=== PATIENT | female | born 1950 | race Caucasian/White ===

== ENCOUNTER 2020-05-22 11:15 | Outpatient (CLI) | payer MEDICARE, SELFPAY | END 2020-05-22 11:16 | disposition home or self-care (01) | LOC: SLEEP 05-23 13:43 | PROVIDERS: Visit Provider Internal Medicine Pulmonary Disease | DX: G47.34 Idiopathic sleep related nonobstructive alveolar hypoventilation (principal) | CPT/HCPCS: 94762 ==

== ENCOUNTER 2021-03-16 08:21 | Emergency (ER) | payer MEDICARE, SELFPAY ==
[2021-03-16 08:36] VITALS: BP 128/51; PULSE 83; RESP 18; O2SAT 98; BMI 28.1
--- NOTE | 2021-03-16 08:50 | ED_ITS ---
HPI - Fall General: Chief Complaint: Fall Stated Complaint: FELL: LLE/ULE PAIN, TINGLING IN LLE Time Seen by Provider: 03/16/21 08:46 Source: patient Mode of arrival: ambulatory Limitations: no limitations History of Present Illness: HPI Narrative: 70-year-old female with a history of arthritis presents to the ER today for left knee and left arm pain x24 hours.. Patient was walking in her yard at home yesterday when she tripped over something in the yard and fell, landing on her left knee and left side. Patient reports since then she has noticed swelling and pain in the left knee, worse with ambulation and weightbearing. She feels like the knee does not look straight. Patient also reports pain in the left upper arm. She has a history of an old fracture with pin and is concerned that might have messed it up. She does have full range of motion of the upper arm but is very tender to palpation of the upper humerus. Patient denies any swelling in the upper arm. Patient has taken home medications for pain. She applied ice but has not done anything else at this point for symptoms. Patient denies headache, fever, chills, chest pain, shortness of breath, nausea, vomiting, diarrhea, constipation, change in bowel or bladder habits. MD complaint: fall Onset (ago): day(s) (1) Fall from: other (In yard while walking) Place fall occurred: home Loss of consciousness: None Prolonged down time: no Symptoms prior to fall: none Context: tripped/slipped Location of injury - extremities: Left: arm and lower leg Severity: moderate Severity scale (1-10): 4 Quality: aching and tingling Associated symptoms-after fall: Denies abdominal pain, chest pain, headache(s) or neck pain Review of Systems Const: Denies: fever(s), chills or fatigue ENMT: Denies: throat pain, nasal discharge or nasal congestion Card: Denies: chest pain or palpitations Resp: Denies: dyspnea or wheezing GI: Denies: abdominal pain, nausea, vomiting, diarrhea or constipation Musc: Reports: extremity pain (Left knee and left upper arm) and joint swelling (Left knee); Denies: neck pain, back pain or extremity swelling Skin/Breast: Reports: other (Abrasions to left lower leg) Neuro: Denies: headache(s), numbness in extremities or dizziness PFS ED PFSH: Medical History Depression Nocturnal hypoxia Family History Sister Cancer breast, leukemia Father CAD (coronary artery disease) Diabetes Mother Diabetes CHF (congestive heart failure) Social History Smoking and tobacco status: never smoked Second hand smoke exposure: Yes Smoking risk assessment/counseling performed?: No Alcohol intake: never Desire information about alcohol rehabilitation?: No Counseling given: No Caregiver/support person: No Lives independently: Yes Household members: none Marital status: Single service: No Current occupational status: retired and disabled History of recent travel: No Current gender identity: Female Physical Exam Const: COMMON NORMALS: no acute distress, average body habitus, patient oriented x3 and alert EXAM LIMITATIONS: no altered mental status GENERAL APPEARANCE: cooperative and comfortable Neck/C-Spine: COMMON NORMALS: full ROM Resp: COMMON NORMALS: normal respiratory effort, No retractions and clear to auscultation bilaterally AUSCULTATION: clear to auscultation bilaterally, no rales, no rhonchi and no wheezes Cardio: COMMON NORMALS: regular rate, regular rhythm and No murmurs present (Cardio) RATE: regular rate RHYTHM: regular rhythm GI: COMMON NORMALS: Normal to inspection, nondistended, normoactive bowel sounds present, Soft to palpation and non-tender PALPATION: Yes Soft to palpation Extremity: COMMON NORMALS: capillary refill normal, no clubbing, cyanosis or edema and no pedal edema RIGHT UPPER EXTREMITY: Yes upper arm (Tender over the proximal humerus but no deformity, normal ROM) LEFT LOWER EXTREMITY: Yes knee joint (Appears to be some mild swelling, and tenderness to palpation over patella) Left knee: Yes palpation (Tender), Yes ROM (Mildly decreased secondary to pain and swelling) and Yes other (Ligaments appear stable on exam) Neuro: COMMON NORMALS: patient oriented x3 SENSORIUM/ORIENTATION: Yes alert Psych: COMMON NORMALS: mental status grossly normal, Normal thought process present and cooperative THOUGHT PROCESS: Normal thought process present Skin: NARRATIVE SKIN EXAM: Abrasions noted to left knee, all appear to be healing nicely. TRAUMA: abrasion Course ED course: -year-old female presents to the ER today for pain in her left knee primarily after a fall yesterday in her yard. She does have some left upper arm pain and is concerned that due to a prior fracture she has a pin and may have messed that up also. Will get x-ray of knee and humerus. Vital Signs: Vital signs: Vital Signs Pulse Rate 83 03/16/21 08:36 Respiratory Rate 18 03/16/21 08:36 Blood Pressure 128/51 03/16/21 08:36 Pulse Oximetry 98 03/16/21 08:36 MDM - Fall MDM Narrative: Medical decision making narrative: X-ray negative for acute fracture or dislocation. Patient has some arthritis noted on x-ray, likely causing the swelling and pain. Discussed conservative treatment at this time including rest, ice, elevation, and anti-inflammatories. Patient has a cane to assist with walking which will help take some of the pressure off of the knee. If pain persists beyond 10 to 14 days, patient should follow-up with her PCP. Return to the ER with any new or worsening symptoms. Imaging Data^: Other Xray: Radiologist's impression: [address] [address] XRay Report Signed Patient: Augustina Ugarte Unit #: [id number] : 1950 Age/Sex: 70 / F ADM Date: 03/16/21 Loc: ER Room/Bed: Attending Dr: Ordering Provider/Ordering MD: June Pugh Date of Service: 03/16/21 Procedure(s): [place] [address] Accession Number(s): [id number] Report Number: [id number] PROCEDURE INFORMATION: Exam: XR Left Humerus Exam date and time: 03/16/2021 8:50 AM Age: 70 years old Clinical indication: Injury or trauma; Fall; Blunt trauma (contusions or hematomas); Arm, upper; Left; Prior surgery; Additional info: Fall with arm pain TECHNIQUE: Imaging protocol: XR Left humerus. Views: 2 or more views. Total images: 2 COMPARISON: No relevant prior studies available. FINDINGS: Bones/joints: Status post open reduction internal fixation of left proximal humeral fracture. No evidence of hardware failure. Residual deformity of the proximal left humerus noted with exuberant inferior osteophyte extending from the humeral head. No acute fracture nor subluxation. No osseous erosion nor periosteal reaction. Soft tissues: Normal. XR/[place] [address] IMPRESSION: 1. Status post open reduction internal fixation of left proximal humeral fracture. No evidence of hardware failure. 2. Residual deformity of the proximal left humerus noted with exuberant inferior osteophyte extending from the humeral head. 3. No acute osseous pathology. Dictated By: Brice Espinosa MD Signed By: Brice Espinosa MD Signed Date/Time: 03/16/21945 DD/ 4 Xray Ortho: Radiologist's impression: [address] [address] XRay Report Signed Patient: Augustina Ugarte Unit #: [id number] : 1950 Age/Sex: 70 / F ADM Date: 03/16/21 Loc: ER Room/Bed: Attending Dr: Ordering Provider/Ordering MD: June Pugh Date of Service: 03/16/21 Procedure(s): XR knee LT 3V* [id number] Accession Number(s): [id number] Report Number: [id number] PROCEDURE INFORMATION: Exam: XR Left Knee Exam date and time: 03/16/2021 8:50 AM Age: 70 years old Clinical indication: Injury or trauma; Fall; Blunt trauma; Knee; Left; Additional info: Fall with knee pain TECHNIQUE: Imaging protocol: XR Left knee. Views: 3 views. Total images: 3 COMPARISON: No relevant prior studies available. FINDINGS: Bones/joints: Moderate marginal osteophytes are noted. No acute fracture nor subluxation. No osseous erosion nor periosteal reaction. Soft tissues: Normal. XR/XR knee LT 3V* [id number] IMPRESSION: No acute osseous pathology. Dictated By: Brice Espinosa MD Signed By: Brice Espinosa MD Signed Date/Time: 03/16/21943 DD/ 2 Critical Care Time Critical Care Time: Critical Care Time: No Discharge Plan Discharge Patient Disposition: Home Clinical Impression: Contusion of arm, left Qualifiers: Encounter type: initial encounter Qualified Code(s): S40.022A - Contusion of left upper arm, initial encounter Contusion of knee, left Qualifiers: Encounter type: initial encounter Qualified Code(s): S80.02XA - Contusion of left knee, initial encounter Condition: Stable Prescriptions: No Action cholecalciferol (vitamin D3) 50 mcg (2,000 unit) capsule 50 mcg PO DAILY RF: 0 hydroxyzine HCl 25 mg tablet 25 mg PO QID PRNRF: 0 metformin 500 mg tablet 500 mg PO BID RF: 0 mirabegron 25 mg tablet extended release 24 hr 25 mg PO DAILY RF: 0 pantoprazole 40 mg tablet,delayed release (DR/EC) 40 mg PO DAILY RF: 0 mecobalamin (vitamin B12) 1,000 mcg tablet,chewable 2,000 mcg PO DAILY RF: 0 Discharge Orders: Discharge ED (Routine); Ordered 03/16/21 Ordered By: June Pugh Referrals: Damian Navarro MD [Primary Care Provider] - Discharge Diet: Usual diet Discharge Activity: Limit activity as instructed Patient Instructions: Opioid Safety Activity Restrictions/Additional Instructions: Take [id number] anti-inflammatory as discussed. Rest, ice, elevation recommended ice 20 minutes on and 20 minutes off. Use cane to relieve some of the weight on the knee while walking. Follow-up with PCP in 10 to 14 days if no improvement. Return to the ER with any new or worsening symptoms. 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
== END 2021-03-16 09:56 | disposition home or self-care (01) ==
PROVIDERS: Emergency Provider Physician Assistant; PCP Family Medicine
DX: S40.022A Contusion of left upper arm, initial encounter (principal); S80.02XA Contusion of left knee, initial encounter; Z79.84 Long term (current) use of oral hypoglycemic drugs; Z77.22 Contact with and (suspected) exposure to environmental tobacco smoke (acute) (chronic); W01.0XXA Fall on same level from slipping, tripping and stumbling without subsequent striking against object, initial encounter
CPT/HCPCS: 73060; 73562; 99282

== ENCOUNTER 2021-07-30 20:00 | Outpatient (CLI) | payer MEDICARE, SELFPAY | END 2021-07-30 20:01 | disposition home or self-care (01) | LOC: SLEEP 07-31 06:34 | PROVIDERS: PCP Family Medicine; Visit Provider Internal Medicine Pulmonary Disease | DX: G47.33 Obstructive sleep apnea (adult) (pediatric) (principal) | CPT/HCPCS: 95810 ==

== ENCOUNTER → 2021-08-28 11:00 | Outpatient (BNVA) | payer MEDICARE, MEDICAID, SELFPAY | PROVIDERS: PCP Family Medicine; Visit Provider Internal Medicine Pulmonary Disease | DX: G47.10 Hypersomnia, unspecified (principal); G47.34 Idiopathic sleep related nonobstructive alveolar hypoventilation | CPT/HCPCS: 99213 ==

== ENCOUNTER → 2021-11-12 15:33 | Outpatient (BNVA) | payer MEDICARE, MEDICAID, SELFPAY | PROVIDERS: PCP Family Medicine; Visit Provider Internal Medicine Pulmonary Disease | DX: G47.10 Hypersomnia, unspecified (principal); G47.34 Idiopathic sleep related nonobstructive alveolar hypoventilation | CPT/HCPCS: 99214 ==

== ENCOUNTER 2022-01-05 08:24 | Day surgery (SDC) | payer MEDICARE, MEDICAID, SELFPAY ==
[2022-01-01 12:17] VITALS: BMI 28.6
[2022-01-05 09:00] VITALS: PULSE 72; RESP 18; TEMP 36.2; O2SAT 96
[2022-01-05] MEDS: sodium chloride 0.9% 1,000 ML 30 ML IV (09:13)
--- NOTE | 2022-01-05 09:44 | W.PM.OPSFHP ---
Same Day Surgery H&P Indication for Procedure/HPI DATE OF PROCEDURE: January 05, 2022 CHIEF COMPLAINT/INDICATIONFOR SURGICAL PROCEDURE: History of colon polyp PREOP DIAGNOSIS: History of polyps PLANNED PROCEDURE: Operation Date: 01/05/22 09:45 Proposed Procedures p Colonoscopy 77543,Z86.010(Not Applicable) - Blayne Shaikh MD Medications/Allergies* Home Medications Medication Instructions Recorded Confirmed Type cholecalciferol (vitamin D3) 50 50 mcg PO DAILY 05/08/20 01/01/22 History mcg (2,000 unit) capsule mecobalamin (vitamin B12) 1,000 2,000 mcg PO DAILY tab 05/08/20 01/01/22 History mcg chewable tablet galcanezumab-gnlm 120 mg/mL 120 mg SUBCUT .monthly ml 11/12/21 01/01/22 History subcutaneous pen injector (Emgality Pen) Allergies/Adverse Reactions Allergy/AdvReac Type Severity Reaction Status Date / Time acetaminophen Allergy Unknown Verified 01/05/22 09:07 [From Darvocet-N] guaifenesin [From Mucinex D] Allergy hives Verified 01/05/22 09:07 meperidine [From Demerol] Allergy Unknown Verified 01/05/22 09:07 morphine Allergy code blue Verified 01/05/22 09:07 oxycodone [From Percocet] Allergy Unknown Verified 01/05/22 09:07 propoxyphene Allergy Unknown Verified 01/05/22 09:07 [From Darvocet-N] pseudoephedrine Allergy hives Verified 01/05/22 09:07 [From Mucinex D] Current Medications: Generic Name Dose Route Start Last Admin Trade Name Freq PRN Reason Stop Dose Admin Sodium Chloride 1,000 mls @ 30 mls/hr 01/05/22 08:30 01/05/22 09:13 Sodium Chloride 0.9% IV 01/06/22 08:29 30 mls/hr .Q24H NASREEN Administration Pertinent History/Comorbid Conditions* Medical History (Updated 12/16/21 @ 09:48 by Blayne Shaikh MD) Depression Nocturnal hypoxia Family History (Updated 05/08/20 @ 15:33 by Mike Mclain LPN) Diabetes Father Mother CAD (coronary artery disease) Father CHF (congestive heart failure) Mother Cancer Sister breast, leukemia Social History Smoking and tobacco status: never smoked Second hand smoke exposure: Yes Smoking risk assessment/counseling performed?: No Alcohol intake: never Desire information about alcohol rehabilitation?: No Counseling given: No Caregiver/support person: No Lives independently: Yes Household members: none Marital status: Single service: No Current occupational status: retired and disabled History of recent travel: No Current gender identity: Female Pertinent Exam Findings alert, oriented x 3, clear to auscultation bilaterally, regular rate & rhythm, operative site marked and procedure specific exam findings Recommendations Surgery/Procedure today Coding Level of Care Code Acute Oncology Social Worker for Maame Macario
--- NOTE | 2022-01-05 09:57 | ANES.PREANE2 ---
Pre-Anesthetic Assessment Height/Weight: Height 1.7 m Weight 83.007 kg Temp Pulse Resp Pulse Ox 97.2 F L 72 18 96 01/05/22 09:00 01/05/22 09:00 01/05/22 09:00 01/05/22 09:00 Preop Diagnosis: History of polyps Operation Date: 01/05/22 09:45 Proposed Procedures p Colonoscopy 64962,Z86.010(Not Applicable) - Blayne Shaikh MD Familial anesthetic complications: None Was Beta Pamela taken within 24 hours: N/A Was Clonidine taken within 24 hours: N/A Last intake: Intake Last Liquid Date 01/04/22 Last Liquid Time 21:00 Last Solid Date 12/29/21 Social No alcohol and No tobacco Exam alert, oriented x 3, clear to auscultation bilaterally and regular rate & rhythm Airway Mallampati: Class I Dentition: other (permanent bridge) Pulmonary Sleep Apnea (no longer has per patient) GI gastroparesis Neuropsych Anxiety Anesthetic Plan ASA status: 2 Anesthesia: MAC Risk of > 500 ml blood loss (7ml/kg in children): No Medications/Allergies Home Medications Medication Instructions Recorded Confirmed Last Taken Type cholecalciferol (vitamin D3) 50 50 mcg PO DAILY 05/08/20 01/01/22 12/29/21 History mcg (2,000 unit) capsule mecobalamin (vitamin B12) 1,000 2,000 mcg PO DAILY tab 05/08/20 01/01/22 12/29/21 History mcg chewable tablet galcanezumab-gnlm 120 mg/mL 120 mg SUBCUT .monthly ml 11/12/21 01/01/22 12/29/21 History subcutaneous pen injector (Emgality Pen) peg 3350-electrolytes 236 240 ml PO Q10M #8000 ml 12/16/21 01/01/22 12/29/21 Rx gram-22.74 gram-6.74 gram-5.86 gram solution (Golytely) Allergies Allergy/AdvReac Type Severity Reaction Status Date / Time acetaminophen Allergy Unknown Verified 01/05/22 09:07 [From Darvocet-N] guaifenesin [From Mucinex D] Allergy hives Verified 01/05/22 09:07 meperidine [From Demerol] Allergy Unknown Verified 01/05/22 09:07 morphine Allergy code blue Verified 01/05/22 09:07 oxycodone [From Percocet] Allergy Unknown Verified 01/05/22 09:07 propoxyphene Allergy Unknown Verified 01/05/22 09:07 [From Darvocet-N] pseudoephedrine Allergy hives Verified 01/05/22 09:07 [From Mucinex D] Current Medications Generic Name Dose Route Start Last Admin Trade Name Freq PRN Reason Stop Dose Admin Sodium Chloride 1,000 mls @ 30 mls/hr 01/05/22 08:30 01/05/22 09:13 Sodium Chloride 0.9% IV 01/06/22 08:29 30 mls/hr .Q24H NASREEN Administration PFSH Anesthesia Medical History Depression Nocturnal hypoxia Family History Sister Cancer breast, leukemia Father CAD (coronary artery disease) Diabetes Mother Diabetes CHF (congestive heart failure) Social History Smoking and tobacco status: never smoked Second hand smoke exposure: Yes Smoking risk assessment/counseling performed?: No Alcohol intake: never Desire information about alcohol rehabilitation?: No Counseling given: No Caregiver/support person: No Lives independently: Yes Household members: none Marital status: Single service: No Current occupational status: retired and disabled History of recent travel: No Current gender identity: Female Data Anesthesia Cardiac Studies: No Data to Display
[2022-01-05 10:41] VITALS: BP 110/69; PULSE 64; RESP 16; TEMP 36.2; O2SAT 96
--- NOTE | 2022-01-05 10:43 | ANE.PACU2 ---
Inpatient post-anesthesia follow up: Airway intact: Yes Vital signs: Temperature 97.2 F Pulse Rate 64 Respiratory Rate 16 Blood Pressure 110/69 Pulse Oximetry 96 Oxygen Delivery Me thod Room Air Oxygen Flow Rate Fraction of Inspir ed Oxygen Hydration adequate: Yes Nausea and vomiting: No Pain level: 1 Mental status: Baseline
[2022-01-05 10:50] VITALS: BP 127/75; PULSE 62; RESP 18; O2SAT 98
== END 2022-01-05 11:07 | disposition home or self-care (01) ==
PROVIDERS: PCP Family Medicine; Visit Provider Internal Medicine
PROC: 0DJD8ZZ Inspection of Lower Intestinal Tract, Via Natural or Artificial Opening Endoscopic (ICD-10-PCS; CPT 45378; principal; 2022-01-05 09:45)
DX: Z86.010 Personal history of colon polyps (principal); G47.30 Sleep apnea, unspecified
CPT/HCPCS: 45378; J2704; J7030

== ENCOUNTER 2022-01-08 12:07 | Inpatient (IN) | payer MEDICARE, MEDICAID, SELFPAY ==
[2022-01-08] VITALS (27 sets, daily range): BP systolic 104–143; BP diastolic 48–118; PULSE 69–177; RESP 11–27; TEMP 36.6–36.8; O2SAT 90–98; BMI 28.1; BMI 29.0
--- NOTE | 2022-01-08 12:27 | ECG_ITS ---
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 Measurements Intervals Mcdonald Rate: 142 P: AK: QRS: 10 QRSD: 74 T: 64 QT: 268 QTc: 412 Interpretive Statements ATRIAL FLUTTER/fibrillation WITH RAPID VENTRICULAR RESPONSE LOW QRS VOLTAGE IN PRECORDIAL LEADS [QRS DEFLECTION < 1.0 mV IN CHEST LEADS] POSSIBLE RIGHT VENTRICULAR CONDUCTION DELAY [RSR (QR) IN V1/V2] NONSPECIFIC ST & T-WAVE ABNORMALITY ABNORMAL RHYTHM ECG No previous ECG available for comparison Electronically Signed On 01-08-2022 21:16:19 CDT by Demar Szymanski M.D. [email or web address]
--- NOTE | 2022-01-08 12:56 | PC.NURSE ---
Patient has converted to SR ERP notified. EKG repeated. Patient denies chest pain or discomfort at this time.
[2022-01-08 13:05] LABS: Basophils # 0.1 10^3/uL (0.0-0.1); Basophils % 0.6 %; Eosinophils # 0.1 10^3/uL (0.0-0.8); Eosinophils % 1.3 %; Hematocrit 40.3 % (37.0-47.0); Hemoglobin 13.1 g/dL (11.5-15.3); Lymphocytes # 2.1 10^3/uL (0.8-4.8); Lymphocytes % 20.6 %; Mean Corpuscular HGB Conc 32.5 g/dL (30.0-36.0); Mean Corpuscular Hemoglobin 30.5 pg (28.0-34.0); Mean Corpuscular Volume 93.9 fl (81-99); Mean Platelet Volume 10.4 fL (7.4-10.4); Monocytes # 0.9 10^3/uL (0.2-0.9); Monocytes % 8.2 %; Neutrophils # 7.16 10^3/uL (1.8-7.7); Nucleated Red Blood Cells % 0 %; Platelet Count 206 10^3/cmm (130-400); Red Blood Count 4.29 10^6/uL (4.1-5.3); Red Cell Distribution Width 12.7 % (12.1-15.1); White Blood Count 10.4 10^3/uL (4.0-10.0)
--- NOTE | 2022-01-08 13:15 | W.ED.GENADLT ---
HPI - General Adult General: Chief complaint: Arrhythmia/Palpitations Stated complaint: DIZZY/ AFIB Time Seen by Provider: 01/08/22 12:27 History of Present Illness: Patient is a 71-year-old female with history of depression migraine presenting to emergency room with concerns of intermittent lightheadedness since 9:00 this morning. Patient tells me that around night she began experiencing lightheadedness and since then has had near syncope. Patient denies any chest pain, diaphoresis, nausea/vomiting, shortness of breath. Patient's called EMS and patient was brought to the emergency room. In route, patient was noted to be in atrial flutter with heart rate in the 140s. Patient received 20 mg IM Cardizem. By time the patient arrived to the emergency room, she would prefer to practice normal sinus rhythm. Patient denies any fever/chills but reports ongoing cough. Onset:9am Duration:ongoing Location:home Severity:moderate Associated symptoms: Deny chest pain, dyspnea, nausea, rash, palpitations or vomiting Review of Systems Const: Denies: fever(s) or chills Eyes: Denies: change in vision ENMT: Denies: mouth pain Card: Denies: chest pain or palpitations Resp: Denies: dyspnea or non-productive cough GI: Denies: abdominal pain, nausea, vomiting or diarrhea : Denies: dysuria Musc: Denies: extremity pain Skin/Breast: Denies: rash or new lesions Neuro: Reports: other (+light-headedness); Denies: weakness in extremities Psych: Reports: other (Normal mood) Octaviano/Lymph: Denies: easy bruising PFSH ED PFSH: Medical History Depression Nocturnal hypoxia Family History Sister Cancer breast, leukemia Father CAD (coronary artery disease) Diabetes Mother Diabetes CHF (congestive heart failure) Social History Smoking and tobacco status: never smoked Second hand smoke exposure: Yes Smoking risk assessment/counseling performed?: No Alcohol intake: never Desire information about alcohol rehabilitation?: No Counseling given: No Caregiver/support person: No Lives independently: Yes Household members: none Marital status: Single service: No Current occupational status: retired and disabled History of recent travel: No Current gender identity: Female Physical Exam Const: COMMON NORMALS: alert HENMT: COMMON NORMALS: atraumatic HEAD & SCALP: atraumatic MOUTH: moist mucous membranes not abnormal Eye: COMMON NORMALS: EOMs intact bilaterally and conjunctivae normal CONJUNCTIVA: Yes conjunctivae normal Neck/C-Spine: COMMON NORMALS: full ROM and supple Resp: COMMON NORMALS: normal respiratory effort and clear to auscultation bilaterally AUSCULTATION: clear to auscultation bilaterally Cardio: COMMON NORMALS: regular rate RATE: regular rate GI: COMMON NORMALS: Soft to palpation and non-tender PALPATION: Yes Soft to palpation Extremity: COMMON NORMALS: full ROM Neuro: SENSORIUM/ORIENTATION: Yes alert MOTOR EXAM: No Abnormal motor strength present and Other motor observations present (no focal motor deficits) Psych: COMMON NORMALS: speech normal SPEECH: Yes normal speech MOOD & AFFECT: Yes euthymic mood Course Vital Signs: Vital signs: Vital Signs Temperature 98.0 F 01/10/22 16:02 Pulse Rate 53 L 01/10/22 16:02 Respiratory Rate 14 01/10/22 16:02 Blood Pressure 105/61 01/10/22 14:15 Pulse Oximetry 92 01/10/22 16:02 [facility] - General Adult Medical Decision Making Patient is a 71-year-old female history of depression and migraine presenting to emergency room with concerns of atrial flutter and recurrent lightheadedness. On arrival, initially, patient on the monitor was noted to have heart rate in the 120s. However on repeat assessment, patient is noted to be normal sinus rhythm with heart rate in the 60s to 80s. Patient has no further sensation of lightheadedness. Lab work-up largely within normal limit. D-dimer appears to be elevated. CTA negative for dissection or PE. Patient does not exhibit any signs of alcohol withdrawal. Patient will be admitted to hospital for new atrial flutter work-up. Dispoistion: admission for atrial flutter new onset workup. Lab Data : 01/09/22 06:10 01/10/22 03:57 Radiology Impressions Chest CTA 01/08/22 15:13 IMPRESSION: No evidence of pulmonary embolism. Laboratory Results WBC 7.8 10^3/uL (4.0-10.0) 01/09/22 06:10 RBC 4.14 10^6/uL (4.1-5.3) 01/09/22 06:10 Hgb 12.5 g/dL (11.5-15.3) 01/09/22 06:10 Hct 39.8 % (37.0-47.0) 01/09/22 06:10 MCV 96.1 fl (81-99) 01/09/22 06:10 MCH 30.2 pg (28.0-34.0) 01/09/22 06:10 MCHC 31.4 g/dL (30.0-36.0) 01/09/22 06:10 RDW 13.0 % (12.1-15.1) 01/09/22 06:10 Plt Count 194 10^3/cmm (130-400) 01/09/22 06:10 MPV 10.6 fL (7.4-10.4) H 01/09/22 06:10 Neut % (Auto) 59.4 % 01/09/22 06:10 Lymph % (Auto) 25.5 % 01/09/22 06:10 Desha % (Auto) 10.1 % 01/09/22 06:10 Eos % (Auto) 3.6 % 01/09/22 06:10 Baso % (Auto) 0.9 % 01/09/22 06:10 Neut # (Auto) 4.65 10^3/uL (1.8-7.7) 01/09/22 06:10 Lymph # (Auto) 2.0 10^3/uL (0.8-4.8) 01/09/22 06:10 Desha # (Auto) 0.8 10^3/uL (0.2-0.9) 01/09/22 06:10 Eos # (Auto) 0.3 10^3/uL (0.0-0.8) 01/09/22 06:10 Baso # (Auto) 0.1 10^3/uL (0.0-0.1) 01/09/22 06:10 Nucleated RBC % (auto) 0 % 01/09/22 06:10 Nucleated RBCs # 0.0 /100WBC 01/09/22 06:10 D-Dimer 0.93 ug/mIFEU (0-0.59) H 01/08/22 12:58 Sodium 137 mmol/L (136-145) 01/09/22 06:10 Potassium 4.1 mmol/L (3.5-5.1) 01/09/22 06:10 Chloride 103 mmol/L (98-107) 01/09/22 06:10 Carbon Dioxide 25 mmol/L (22-29) 01/09/22 06:10 Anion Gap 13.1 (5-19) 01/09/22 06:10 BUN 13 mg/dL (8-23) 01/09/22 06:10 Creatinine 0.5 mg/dL (0.5-0.9) 01/09/22 06:10 GFR Calculation 122.3 mL/min (90-130) 01/09/22 06:10 Glucose 109 mg/dL (65-115) 01/09/22 06:10 Calculated Osmolality 285 mOsm/kg (285-295) 01/09/22 06:10 Calcium 9.2 mg/dL (8.5-10.5) 01/09/22 06:10 Magnesium 2.3 mg/dL (1.7-2.3) 01/09/22 06:10 Total Bilirubin 0.5 mg/dL (0.15-1.2) 01/08/22 12:58 AST 15 U/L (0-32) 01/08/22 12:58 ALT 11 U/L (0-33) 01/08/22 12:58 Alkaline Phosphatase 74 IU/L (35-105) 01/08/22 12:58 Troponin T Baseline 8 ng/L (0-10) 01/08/22 12:58 Troponin T 120 Minute 8.35 ng/L (0-10) 01/08/22 14:59 Delta Troponin T 0.35 ABS# (0-10) 01/08/22 14:59 Troponin T Hi Sens 6Hr 6.95 ng/L (0-10) 01/08/22 19:48 Troponin T Hi Sens 6Hr Delta -1.05 ng/L (0-12) L 01/08/22 19:48 NT-Pro-B Natriuret Pep 836 pg/mL (0-125) H 01/09/22 06:10 Total Protein 6.2 g/dL (6.6-8.7) L 01/08/22 12:58 Albumin 4.0 g/dL (3.5-5.2) 01/08/22 12:58 Globulin 2.2 g/dL (1.3-4.6) 01/08/22 12:58 Triglycerides 77 mg/dL (0-150) 01/09/22 06:10 Cholesterol 168 mg/dL (0-200) 01/09/22 06:10 LDL Cholesterol, Calc 82 mg/dL (50-129) 01/09/22 06:10 HDL Cholesterol 71 mg/dL (60-100) 01/09/22 06:10 LDL/HDL Ratio 1.15 RATIO (0.00-3.22) 01/09/22 06:10 Cholesterol/HDL Ratio 2.37 mg/dL (0.0-4.40) 01/09/22 06:10 Lipase 21 U/L (13-60) 01/08/22 12:58 TSH 1.51 uIU/mL (0.27-4.20) 01/08/22 12:58 Free T4 1.03 ng/dL (0.82-1.77) 01/08/22 12:58 Imaging Data Other Imaging: Radiologist's impression: [place] [id number] CT Scan Report Signed Patient: Augustina Ugarte Unit #: [id number] : 1950 Age/Sex: 71 / F ADM Date: 01/08/22 Loc: [facility] Room/Bed: [facility] Attending Dr: Mirna Messer MD Ordering Provider/Ordering MD: Naveed Espinal MD Date of Service: 01/08/22 Procedure(s): CT angio chest PE protcl [id number] Accession Number(s): [id number] Report Number: [id number] PROCEDURE INFORMATION: Exam: CTA Chest With Contrast Exam date and time: 01/08/2022 5:38 PM Age: 71 years old Clinical indication: Pain; Patient HX: C/O chest pressure with palpitations. Atrial flutter on monitor. ; Additional info: Light-headedness, palpitation, possible pe TECHNIQUE: Imaging protocol: Computed tomographic angiography of the chest with contrast. 3D rendering (Not supervised by radiologist): MIP and/or 3D reconstructed images were created by the technologist. Radiation optimization: All CT scans at this facility use at least one of these dose optimization techniques: automated exposure control; mA and/or kV adjustment per patient size (includes targeted exams where dose is matched to clinical indication); or iterative reconstruction. Contrast material: OMN 350; Contrast volume: 80 ml; Contrast route: INTRAVENOUS (IV);? COMPARISON: [place] [id number] 03/16/2021 9:04 AM RADIATION DOSE METRICS: Total DLP (mGy-cm): 586.29 FINDINGS: Pulmonary arteries: There is no evidence of filling defects within the pulmonary arterial circulation to suggest pulmonary embolism. Aorta: There is no thoracic aortic aneurysm or dissection. Lungs: There is some platelike atelectasis in the left lower lobe. There is some mild dependent atelectasis in both lungs. No acute infiltrate is identified. Pleural spaces: Unremarkable. No pneumothorax. No pleural effusion. Heart: The heart is mildly enlarged. There is tiny pericardial effusion. Lymph nodes: There is no evidence of lymphadenopathy. Diaphragm: There is a small hiatal hernia. Bones/joints: The thoracic spine demonstrates moderate degenerative changes at multiple levels. Soft tissues: Unremarkable. CT/CT angio chest PE protcl [id number] IMPRESSION: No evidence of pulmonary embolism. ? Dictated By: Desmond Quiroz Signed By: Desmond Quiroz Signed Date/Time: 01/08/221906 DD/ 37 Discharge Plan Discharge Patient Disposition: Admitted As Inpatient Admit Provider: Mirna Messer Clinical Impression: Atrial flutter, Near syncope Condition: Stable Discharge Activity: Resume usual activity Coding Level of Care Code ED Acute Dialysis Nurse for Chg Fwd Exam Comprehensive
[2022-01-08] MEDS: sodium chloride 0.9% 1,000 ML 999 ML IV (13:16)
[2022-01-08 13:29] LABS: Troponin(5th) Baseline 8 ng/L (0-10)
[2022-01-08 13:37] LABS: Alanine Aminotransferase 11 U/L (0-33); Alkaline Phosphatase 74 IU/L (35-105); Aspartate Amino Transferase 15 U/L (0-32); Blood Urea Nitrogen 13 mg/dL (8-23); Calcium 9.4 mg/dL (8.5-10.5); Carbon Dioxide 24 mmol/L (22-29); Chloride 105 mmol/L (98-107); Creatinine Clr Calc Pharmacy 72.9426; Free T4 Free Thyroxine 1.03 ng/dL (0.82-1.77); Globulin 2.2 g/dL (1.3-4.6); Glomerular Filtration Rate 122.3 mL/min (90-130); Glucose 123 mg/dL (65-115); Lipase 21 U/L (13-60); Osmolality Calculated 293 mOsm/kg (285-295); Sodium 141 mmol/L (136-145); Thyroid Stimulating Hormone 1.51 uIU/mL (0.27-4.20); Total Bilirubin 0.5 mg/dL (0.15-1.2); Total Protein 6.2 g/dL (6.6-8.7)
[2022-01-08 13:52] LABS: Anion Gap 16.2 (5-19); Potassium 4.2 mmol/L (3.5-5.1)
--- NOTE | 2022-01-08 14:27 | ECG_ITS ---
[facility] Test Date: 2022-01-08 Pat Name: Augustina Ugarte Department: Room: Gender: Female Bench Technician: : 1950 Requested By: Naveed Espinal Order Number: [id number] Reading MD: Demar Szymanski M.D. Measurements Intervals [place] Rate: 83 P: 53 OK: 173 QRS: 3 QRSD: 93 T: 55 QT: 353 QTc: 417 Interpretive Statements SINUS RHYTHM LOW QRS VOLTAGE IN PRECORDIAL LEADS [QRS DEFLECTION < 1.0 mV IN CHEST LEADS] POSSIBLE ANTERIOR MYOCARDIAL INFARCTION , PROBABLY OLD [30 ms Q WAVE IN V3/V4, OR R < 0.2 mV IN V4] Compared to ECG 01/08/2022 12:37:39 Myocardial infarct finding now present Atrial flutter no longer present T-wave abnormality no longer present Electronically Signed On 01-08-2022 21:21:33 CDT by Demar Szymanski M.D. [email or web address]/[id number] f
[2022-01-08 14:35] LABS: D Dimer 0.93 ug/mIFEU (0-0.59)
--- NOTE | 2022-01-08 15:13 | CTR_ITS ---
PROCEDURE INFORMATION: Exam: CTA Chest With Contrast Exam date and time: 01/08/2022 5:38 PM Age: 71 years old Clinical indication: Pain; Patient HX: C/O chest pressure with palpitations. Atrial flutter on monitor. ; Additional info: Light-headedness, palpitation, possible pe TECHNIQUE: Imaging protocol: Computed tomographic angiography of the chest with contrast. 3D rendering (Not supervised by radiologist): MIP and/or 3D reconstructed images were created by the technologist. Radiation optimization: All CT scans at this facility use at least one of these dose optimization techniques: automated exposure control; mA and/or kV adjustment per patient size (includes targeted exams where dose is matched to clinical indication); or iterative reconstruction. Contrast material: OMN 350; Contrast volume: 80 ml; Contrast route: INTRAVENOUS (IV); COMPARISON: [place] [id number] 03/16/2021 9:04 AM RADIATION DOSE METRICS: Total DLP (mGy-cm): 586.29 FINDINGS: Pulmonary arteries: There is no evidence of filling defects within the pulmonary arterial circulation to suggest pulmonary embolism. Aorta: There is no thoracic aortic aneurysm or dissection. Lungs: There is some platelike atelectasis in the left lower lobe. There is some mild dependent atelectasis in both lungs. No acute infiltrate is identified. Pleural spaces: Unremarkable. No pneumothorax. No pleural effusion. Heart: The heart is mildly enlarged. There is tiny pericardial effusion. Lymph nodes: There is no evidence of lymphadenopathy. Diaphragm: There is a small hiatal hernia. Bones/joints: The thoracic spine demonstrates moderate degenerative changes at multiple levels. Soft tissues: Unremarkable. CT/CT angio chest PE protcl [id number] IMPRESSION: No evidence of pulmonary embolism.
[2022-01-08 15:28] LABS: Troponin 5 2HR 8.35 ng/L (0-10)
[2022-01-08] MEDS: iohexol 350 mg/mL 100 mL Btl IV (15:53)
[2022-01-08 16:24] LABS: Troponin 5 2HR Delta 0.35 ABS# (0-10)
--- NOTE | 2022-01-08 16:48 | P.HP_ITS ---
Providers/Chief Complaint Admitting Physician: Mirna Messer MD Primary Care Provider: Adriano Navarro Chief Complaint: DIZZY/ AFIB History of Present Illness Augustina Ugarte is a 71 year old female with past medical history of prediabetes, generalized anxiety disorder, obstructive sleep apnea, gastroparesis, irritable bowel syndrome presented to the hospital with complaint of lightheadedness and dizziness. This started around 9 AM this morning. She says that last night she started experiencing lightheadedness and since then had a near syncope episode. Denies chest pain, diaphoresis, nausea, vomiting, shortness of breath. She called EMS and came to the emergency room. She says she was recently at [facility] and stayed there overnight and was kept on telemetry which was normal. They did an echocardiogram and EKGs which were all normal as well. She states she has had an enlarged heart all her life because as a child she had rheumatic fever. Review of systems are completely negative at this time. ED course: In route to ER she was noted to be in atrial flutter with heart rate in 140s. She received 20 mg IM Cardizem on her way to the hospital. But when she got to the hospital she was in normal sinus rhythm and she had converted already. Blood pressure 115/79, respiratory 20, pulse 177, temperature 97.9, saturating 96% on room air. Digoxin was also ordered for her which was not given because she had converted to sinus rhythm. She did not have any further sensation of lightheadedness. Hospitalist was called for admission. CTA chest has been ordered at this time which is pending to rule out PE. Medications/Allergies Home Medications Medication Instructions Recorded Confirmed Last Taken Type cholecalciferol (vitamin D3) 50 50 mcg PO DAILY 05/08/20 01/08/22 12/29/21 H istory mcg (2,000 unit) capsule mecobalamin (vitamin B12) 1,000 2,000 mcg PO DAILY tab 05/08/20 01/08/22 12/29/21 History mcg chewable tablet galcanezumab-gnlm 120 mg/mL 120 mg SUBCUT .monthly ml 11/12/21 01/08/22 12/29/21 History subcutaneous pen injector (Emgality Pen) aspirin 81 mg tablet,delayed 81 mg PO DAILY 01/08/22 01/08/22 Unknown History release calcium carbonate 333 mg-magnesium 1 tab PO DAILY 01/08/22 01/08/22 Unknown History oxide 133 mg-zinc gluc 5 mg tablet Allergies Allergy/AdvReac Type Severity Reaction Status Date / Time acetaminophen Allergy Unknown Verified 01/08/22 13:02 [From Darvocet-N] guaifenesin [From Mucinex D] Allergy hives Verified 01/08/22 13:02 meperidine [From Demerol] Allergy Unknown Verified 01/08/22 13:02 morphine Allergy code blue Verified 01/08/22 13:02 oxycodone [From Percocet] Allergy Unknown Verified 01/08/22 13:02 propoxyphene Allergy Unknown Verified 01/08/22 13:02 [From Darvocet-N] pseudoephedrine Allergy hives Verified 01/08/22 13:02 [From Mucinex D] PFSH Acute PFSH: Medical History Depression Nocturnal hypoxia Family History Sister Cancer breast, leukemia Father CAD (coronary artery disease) Diabetes Mother Diabetes CHF (congestive heart failure) Social History Smoking and tobacco status: never smoked Second hand smoke exposure: Yes Smoking risk assessment/counseling performed?: No Alcohol intake: never Desire information about alcohol rehabilitation?: No Counseling given: No Caregiver/support person: No Lives independently: Yes Household members: none Marital status: Single service: No Current occupational status: retired and disabled History of recent travel: No Current gender identity: Female Vitals/I&O/Wt Last Vital Signs Temp 97.9 F 01/08/22 12:12 Pulse 73 01/08/22 15:00 Resp 26 H 01/08/22 15:00 BP 141/80 01/08/22 15:30 Pulse Ox 96 01/08/22 15:00 Weight last 48 hrs Weight 81.647 kg Physical Exam Narrative: General: Alert oriented x3, patient seen eating up in bed appearing comfortable at this time. HEENT: Normocephalic, atraumatic, EOMI, breathing normally Cardio: Regular rate rhythm, normal S1-S2, Respiratory: Good bilateral air entry, no wheezes no rhonchi appreciated GI: Abdomen soft, nontender, nondistended, bowel sounds + Behavior: Appropriate and cooperative Extremities: no edema, no cyanosis Data : 01/09/22 06:10 01/09/22 06:10 A&P Assessment and plan (1) Atrial flutter: Status: Acute (2) Near syncope: Status: Acute (3) Obstructive sleep apnea: Status: Acute (4) Generalized anxiety disorder: Status: Acute Plan #Atrial flutter, now converted to sinus rhythm #Near syncope #Generalized anxiety disorder #Obstructive sleep apnea #Gastroparesis #Irritable bowel syndrome ? Patient has received 20 mg IM Cardizem in route to hospital. Continue to monitor on telemetry overnight. We will await records from [facility] before proceeding with further management. I will not reorder echo since he just had it 2 days ago. ? We will discuss her case with cardiology ? Continue aspirin daily. ? Continue vitamin B12 Full code DVT prophylaxis: Lovenox Attestations Medical Necessity Statement*: Will admit for observation overnight. Coding Level of Care Code Acute Mysql Database Administrator for Maame Macario Diagnoses Atrial flutter I48.92 Near syncope R55 Obstructive sleep apnea G47.33 Generalized anxiety disorder F41.1
--- NOTE | 2022-01-08 17:18 | PC.NURSE ---
Report called to [facility] [place]. Patient currently in CT will transport upstairs upon return.
--- NOTE | 2022-01-08 18:27 | ECG_ITS ---
[facility] Test Date: 2022-01-08 Pat Name: Augustina Ugarte Department: Room: 273 Gender: Female Automation Test Developer: : 1950 Requested By: Naveed Espinal Order Number: [id number] Yolanda MD: Christopher Howard M.D. Measurements Intervals [place] Rate: 64 P: 59 NM: 191 QRS: 13 QRSD: 82 T: 45 QT: 405 QTc: 420 Interpretive Statements SINUS RHYTHM Compared to ECG 01/08/2022 12:56:47 Myocardial infarct finding no longer present Electronically Signed On 01-09-2022 20:49:46 CDT by Christopher Howard M.D. [email or web address].[email or web address]/store/[id number]
[2022-01-08 20:57] LABS: Troponin 5 6HR 6.95 ng/L (0-10)
[2022-01-08 21:49] LABS: Troponin 5 6HR Delta -1.05 ng/L (0-12)
[2022-01-09] VITALS (23 sets, daily range): BP systolic 101–174; BP diastolic 65–96; PULSE 62–97; RESP 12–33; TEMP 36.3–36.7; O2SAT 93–100
[2022-01-09 06:37] LABS: Basophils # 0.1 10^3/uL (0.0-0.1); Basophils % 0.9 %; Eosinophils # 0.3 10^3/uL (0.0-0.8); Eosinophils % 3.6 %; Hematocrit 39.8 % (37.0-47.0); Hemoglobin 12.5 g/dL (11.5-15.3); Lymphocytes % 25.5 %; Mean Corpuscular HGB Conc 31.4 g/dL (30.0-36.0); Mean Corpuscular Hemoglobin 30.2 pg (28.0-34.0); Mean Corpuscular Volume 96.1 fl (81-99); Mean Platelet Volume 10.6 fL (7.4-10.4); Monocytes # 0.8 10^3/uL (0.2-0.9); Monocytes % 10.1 %; Neutrophils # 4.65 10^3/uL (1.8-7.7); Neutrophils % 59.4 %; Nucleated Red Blood Cells % 0 %; Platelet Count 194 10^3/cmm (130-400); Red Blood Count 4.14 10^6/uL (4.1-5.3); White Blood Count 7.8 10^3/uL (4.0-10.0)
[2022-01-09 06:54] LABS: Anion Gap 13.1 (5-19); Blood Urea Nitrogen 13 mg/dL (8-23); Calcium 9.2 mg/dL (8.5-10.5); Carbon Dioxide 25 mmol/L (22-29); Chloride 103 mmol/L (98-107); Glomerular Filtration Rate 122.3 mL/min (90-130); Glucose 109 mg/dL (65-115); Magnesium 2.3 mg/dL (1.7-2.3); Osmolality Calculated 285 mOsm/kg (285-295); Potassium 4.1 mmol/L (3.5-5.1); Sodium 137 mmol/L (136-145)
[2022-01-09] MEDS: aspirin 81 mg EC Tablet PO (09:53)
--- NOTE | 2022-01-09 11:19 | P.PN_ITS ---
Subjective Subjective: Seen this AM. Patient has been asymptomatic since admission. No acute events overnight. I will review her telemetry CTA negative for PE. Vitals/I&O/Wt Last Vital Signs Temp 98.1 F 01/09/22 08:00 Pulse 63 01/09/22 08:55 Resp 16 01/09/22 08:00 BP 105/65 01/09/22 08:00 Pulse Ox 93 01/09/22 08:55 01/08/22 01/09/22 01/09/22 22:59 06:59 14:59 Intake Total 1000 / 1000 Balance 1000 / 1000 Weight last 48 hrs Weight 84.005 kg Weight 81.647 kg Physical Exam Narrative: General: Alert oriented x3, patient seen eating up in bed appearing comfortable at this time. HEENT: Normocephalic, atraumatic, EOMI, breathing normally Cardio: Regular rate rhythm, normal S1-S2, Respiratory: Good bilateral air entry, no wheezes no rhonchi appreciated GI: Abdomen soft, nontender, nondistended, bowel sounds + Behavior: Appropriate and cooperative Extremities: no edema, no cyanosis Data : 01/09/22 06:10 01/09/22 06:10 A&P Assessment and plan (1) Generalized anxiety disorder: Status: Acute (2) Atrial flutter: Status: Acute (3) Near syncope: Status: Acute (4) Obstructive sleep apnea: Status: Acute Plan #Atrial flutter, now converted to sinus rhythm #Near syncope #Generalized anxiety disorder #Obstructive sleep apnea #Gastroparesis #Irritable bowel syndrome ? Patient has received 20 mg IM Cardizem in route to hospital.? Continue to monitor on telemetry overnight.? We will await records from [facility] antonella simpson proceeding with further management.? I will not reorder echo since he just had it 2 days ago. Her records are still not her records are still not here. Request sent again to [facility]. ? Cardiology consulted. We will start her on flecainide 75 twice daily ? Continue aspirin daily. ? Continue vitamin B12 Full code DVT prophylaxis: Lovenox Attestations Medical Necessity Statement*: Patient will be started on antiarrhythmic agent. She will need to be monitored in the hospital on telemetry. Expected to stay tonight. Potential discharge in next 24 to 48 hours. Coding Level of Care Code Acute Liquified Natural Gas Technician for Chg Fwd Diagnoses Generalized anxiety disorder F41.1 Atrial flutter I48.92 Near syncope R55 Obstructive sleep apnea G47.33
--- NOTE | 2022-01-09 13:08 | PC.CHAP ---
Pastoral Care Encounter/Spiritual Assessment Type of Contact [] Declined district gauger visit [] Patient/Family/Request visit [] Outpatient visit [] Follow-up visit [] Physician referral [] Code/Alert [x] Routine visit [] Staff referral [] Actively dying [] Patient sleeping [] Family support [] [] Out of room [] Palliative care [] [] Receiving care in room [] Pre-surgical visit [] Trauma [] Long length of stay [] ICU visit [] Other: Relational/Emotional Strength [x] Patient feels connected with others/family/visitors/staff [] Distress [] Loneliness/isolation [] Abandonment Spirituality of Patient [x] Person of Kristina [] Attends [employer] of their Kristina []x Believes in Prayer [] Reads Bible or Mormonism materials [] There are Spiritual issues to be addressed Tail Ripper Interventions [x] Prayer [x] Active listening [x] Non-anxious presence [] Spiritual/emotional support [] Crisis/trauma care [] Spiritual counseling [] Bereavement support [] Provided bereavement packet [] Provided Bible/devotional materials [] Provided toy/stuffed animal, coloring book to patient or family member [] Provided Communion [] Anointing/Wheeler [x] Salvation [] Completed spiritual assessment [] Other: Impact on Illness or Injury [] Angry [] Fearful [] Anxious [] Often cries [] Exhaustion [] Unable to work [] Unable to attend taoism [] Unable to walk/stand [] Unable to read [] Unable to drive [] Unable to eat/drink [] Unable to sleep [] Unable to be with family [] Patient intubated [] Other: Summary Time spent with patient 10 mi n
--- NOTE | 2022-01-09 15:47 | PM.CONSULT ---
Providers/Reason For Consult Consulting Physician/Specialty*: LEONARD Szymanski MD/cardiology Reason for Consult*: Patient presenting with palpitations/near syncopal episode. Was found to be in atrial fibrillation with rapid ventricular rate. Converted to sinus rhythm after Cardizem. For further evaluation recommendations Requesting Physician: Dr. Messer Attending Physician: Mirna Messer MD Primary Care Provider: Adriano Navarro History of Present Illness History of Present Illness Augustina Ugarte is a 71 year old female, with no significant past cardiac history, is admitted to the hospital through the emergency room where she presented with complaints of palpitations/dizziness. She was found to be nearly fibrillation with rapid ventricular rate. She received a total of 20 mg of Cardizem IV ?. Rhythm converted to normal sinus. Myocardial infarction was ruled out. Cardiology consult is requested for further cardiac evaluation recommendations. This patient was admitted to [facility] 3 days ago, where she presented with complaints of chest pain and shortness of breath. According the patient, she has a longstanding history of chest pain because of the arthritis/degenerative joint disease affecting the spine. For the last 2 months, she been having pleuritic type of pain in the chest. The pain was in the upper substernal region, radiated to the back. This was thought to be musculoskeletal in origin. She did not have any fever, chills or cough. Better on the day of the admission to the [facility], she was having more severe chest pain associated with shortness of breath. She was finding it difficult to move around because of the shortness of breath. For these reasons, she called the ambulance and was taken to the [facility]. Myocardial infarction was ruled out at that time. She had an echocardiogram done which revealed a diffuse hypokinesis of the left ventricle with an ejection fraction of 45 to 50%. The left atrium was reported to be mildly dilated. She was discharged home to have further cardiac evaluations as an outpatient. Since hospital discharge, she been having exertional dyspnea. She feels more tired and weak. No orthopnea or PND. Patient has a history of abnormal EKG and rheumatic fever as a child. In 2016, she had a stress test and cardiac catheterization as part of a preop surgical evaluation. She was found to have no significant blockages. She also had another stress test somewhere in [place] few years ago and was told to be okay. She never had any cardiac arrhythmia. She never had a chest pain and shortness of breath like the one she had on last Wednesday. She has a longstanding history of type 2 diabetes. No history for high blood pressure or dyslipidemia. No history for any congestive heart failure. He has a history of obstructive sleep apnea and had been on CPAP for a while. She lost around 50 pounds and since then, she did not have to use the CPAP?. Currently she has the daytime somnolence. 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 Review of Systems Narrative: CONSTITUTIONAL: No fever or chills. EYES: No blurring of vision or other visual disturbances lately. ENT: No hoarseness of voice, auditory disturbances or sore throat. CARDIOVASCULAR: As mentioned above. RESPIRATORY: No significant cough. GASTROINTESTINAL: No hematemesis or melena. GENITOURINARY: No dysuria or hematuria. INTEGUMENTARY: No skin rashes or history of skin cancer. NEURO: No transient ischemic attacks or amaurosis. PSYCHIATRIC: No history of psychosis or major depression. HEMATOLOGIC: No bleeding disorders or significant anemia. ENDOCRINE: No history of polyuria or polydipsia. MUSCULOSKELETAL: No recent joint pain or swelling. ALLERGY/IMMUNOLOGY: As mentioned above. Medications/Allergies Home Medications Medication Instructions Recorded Confirmed Last Taken Type cholecalciferol (vitamin D3) 50 50 mcg PO DAILY 05/08/20 01/08/22 12/29/21 History mcg (2,000 unit) capsule mecobalamin (vitamin B12) 1,000 2,000 mcg PO DAILY tab 05/08/20 01/08/22 12/29/21 History mcg chewable tablet galcanezumab-gnlm 120 mg/mL 120 mg SUBCUT .monthly ml 11/12/21 01/08/22 12/29/21 History subcutaneous pen injector (Emgality Pen) aspirin 81 mg tablet,delayed 81 mg PO DAILY 01/08/22 01/08/22 Unknown History release calcium carbonate 333 mg-magnesium 1 tab PO DAILY 01/08/22 01/08/22 Unknown History oxide 133 mg-zinc gluc 5 mg tablet Allergies Allergy/AdvReac Type Severity Reaction Status Date / Time acetaminophen Allergy Unknown Verified 01/08/22 13:02 [From Darvocet-N] guaifenesin [From Mucinex D] Allergy hives Verified 01/08/22 13:02 meperidine [From Demerol] Allergy Unknown Verified 01/08/22 13:02 morphine Allergy code blue Verified 01/08/22 13:02 oxycodone [From Percocet] Allergy Unknown Verified 01/08/22 13:02 propoxyphene Allergy Unknown Verified 01/08/22 13:02 [From Darvocet-N] pseudoephedrine Allergy hives Verified 01/08/22 13:02 [From Mucinex D] Current Medications Generic Name Dose Route Start Last Admin Trade Name Freq PRN Reason Stop Dose Admin Aspirin 81 mg 01/09/22 09:00 01/09/22 09:53 Aspirin 81 Mg Ec Tablet PO 81 mg DAILY NASREEN Administration Enoxaparin Sodium 40 mg 01/08/22 17:00 01/09/22 03:59 Enoxaparin 40 Mg/0.4 Ml Syringe SUBCUT Not Given Q24H NASREEN PFSH Acute PFSH: Medical History Depression Nocturnal hypoxia Family History Sister Cancer breast, leukemia Father CAD (coronary artery disease) Diabetes Mother Diabetes CHF (congestive heart failure) Social History Smoking and tobacco status: never smoked Second hand smoke exposure: Yes Smoking risk assessment/counseling performed?: No Alcohol intake: never Desire information about alcohol rehabilitation?: No Counseling given: No Caregiver/support person: No Lives independently: Yes Household members: none Marital status: Single service: No Current occupational status: retired and disabled History of recent travel: No Current gender identity: Female Vitals/I&O/Wt Last Vital Signs Temp 97.8 F 01/09/22 15:43 Pulse 76 01/09/22 15:43 Resp 18 01/09/22 15:43 BP 112/72 01/09/22 15:43 Pulse Ox 96 01/09/22 15:43 01/09/22 01/09/22 01/09/22 06:59 14:59 22:59 Intake Total 1540 / 1540 Balance 1540 / 1540 Weight last 48 hrs Weight 185 lb 3.2 oz Weight 180 lb Physical Exam Narrative: GENERAL: The patient is alert and oriented times three. Not in any acute distress. HEENT: No significant pallor, icterus or lymphadenopathy.Oral cavity: There are no mucous membrane lesions. Fundus is not visualized NECK: Trachea appears to be central. No masses noted. No JVD or thyromegaly appreciated. RESPIRATORY: Chest is symmetrical. No intercostals muscle retraction or any accessory muscle activation. There is no chest wall tenderness. Breath sounds are heard bilaterally. No rales or rhonchi heard. No evidence of any consolidation. BREASTS: Deferred. HEART: The heart sounds are normal. No S3 or S4. No significant murmurs. No pericardial rub ABDOMEN: No vessel pulsations or distention. No tenderness. No organomegaly appreciated. Bowel sounds are normally heard. : Deferred. RECTAL: Deferred. LYMPHATIC: No lymphadenopathy noted in the neck. EXTREMITIES: No edema or cyanosis. No clubbing. MUSCULOSKELETAL: No acute joint deformities or swelling SKIN: There are no significant rashes or ecchymosis NEUROPSYCHIATRIC: The patient is alert and oriented x3. Appears to be in a good mood. No tremors or rigidity noted. Data : 01/09/22 06:10 01/09/22 06:10 Other Labs: Laboratory Last Values WBC 7.8 10^3/uL (4.0-10.0) 01/09/22 06:10 RBC 4.14 10^6/uL (4.1-5.3) 01/09/22 06:10 Hgb 12.5 g/dL (11.5-15.3) 01/09/22 06:10 Hct 39.8 % (37.0-47.0) 01/09/22 06:10 MCV 96.1 fl (81-99) 01/09/22 06:10 MCH 30.2 pg (28.0-34.0) 01/09/22 06:10 MCHC 31.4 g/dL (30.0-36.0) 01/09/22 06:10 RDW 13.0 % (12.1-15.1) 01/09/22 06:10 Plt Count 194 10^3/cmm (130-400) 01/09/22 06:10 MPV 10.6 fL (7.4-10.4) H 01/09/22 06:10 Neut % (Auto) 59.4 % 01/09/22 06:10 Lymph % (Auto) 25.5 % 01/09/22 06:10 Rosebud % (Auto) 10.1 % 01/09/22 06:10 Eos % (Auto) 3.6 % 01/09/22 06:10 Baso % (Auto) 0.9 % 01/09/22 06:10 Neut # (Auto) 4.65 10^3/uL (1.8-7.7) 01/09/22 06:10 Lymph # (Auto) 2.0 10^3/uL (0.8-4.8) 01/09/22 06:10 Rosebud # (Auto) 0.8 10^3/uL (0.2-0.9) 01/09/22 06:10 Eos # (Auto) 0.3 10^3/uL (0.0-0.8) 01/09/22 06:10 Baso # (Auto) 0.1 10^3/uL (0.0-0.1) 01/09/22 06:10 Nucleated RBC % (auto) 0 % 01/09/22 06:10 Nucleated RBCs # 0.0 /100WBC 01/09/22 06:10 D-Dimer 0.93 ug/mIFEU (0-0.59) H 01/08/22 12:58 Sodium 137 mmol/L (136-145) 01/09/22 06:10 Potassium 4.1 mmol/L (3.5-5.1) 01/09/22 06:10 Chloride 103 mmol/L (98-107) 01/09/22 06:10 Carbon Dioxide 25 mmol/L (22-29) 01/09/22 06:10 Anion Gap 13.1 (5-19) 01/09/22 06:10 BUN 13 mg/dL (8-23) 01/09/22 06:10 Creatinine 0.5 mg/dL (0.5-0.9) 01/09/22 06:10 GFR Calculation 122.3 mL/min (90-130) 01/09/22 06:10 Glucose 109 mg/dL (65-115) 01/09/22 06:10 Calculated Osmolality 285 mOsm/kg (285-295) 01/09/22 06:10 Calcium 9.2 mg/dL (8.5-10.5) 01/09/22 06:10 Magnesium 2.3 mg/dL (1.7-2.3) 01/09/22 06:10 Total Bilirubin 0.5 mg/dL (0.15-1.2) 01/08/22 12:58 AST 15 U/L (0-32) 01/08/22 12:58 ALT 11 U/L (0-33) 01/08/22 12:58 Alkaline Phosphatase 74 IU/L (35-105) 01/08/22 12:58 Troponin T Baseline 8 ng/L (0-10) 01/08/22 12:58 Troponin T 120 Minute 8.35 ng/L (0-10) 01/08/22 14:59 Delta Troponin T 0.35 ABS# (0-10) 01/08/22 14:59 Troponin T Hi Sens 6Hr 6.95 ng/L (0-10) 01/08/22 19:48 Troponin T Hi Sens 6Hr Delta -1.05 ng/L (0-12) L 01/08/22 19:48 Total Protein 6.2 g/dL (6.6-8.7) L 01/08/22 12:58 Albumin 4.0 g/dL (3.5-5.2) 01/08/22 12:58 Globulin 2.2 g/dL (1.3-4.6) 01/08/22 12:58 Lipase 21 U/L (13-60) 01/08/22 12:58 TSH 1.51 uIU/mL (0.27-4.20) 01/08/22 12:58 Free T4 1.03 ng/dL (0.82-1.77) 01/08/22 12:58 EKG 1: My Interpretation: Atrial fibrillation with rapid ventricular rate of 142 bpm. Diffuse nonspecific T wave changes. EKG computer-generated impression: Chest CTA 01/08/22 15:13 IMPRESSION: No evidence of pulmonary embolism. A&P Assessment and plan (1) Atrial fibrillation with rapid ventricular response: Patient had the palpitation with dizziness lasting for a total of 4 hours or so. Currently she is in sinus rhythm. Etiology is not clear. Possibility of having underlying coronary ischemia causing the arrhythmia is a consideration. So far she has no evidence of any myocardial injury. Status: Acute (2) Atypical chest pain: Possibility of underlying coronary ischemia causing the chest pain, shortness of breath and arrhythmia is a consideration. According the patient, she did not have any significant blockages 6 years ago. This may need to be further evaluated. Status: Acute (3) Systolic dysfunction: Etiology is not clear. Coronary ischemia/arrhythmia causing this is a consideration. Apparently she never had any palpitation or documented arrhythmia prior to the current event. Status: Acute Plan Her other problems are Daytime somnolence Degenerative joint disease Type 2 diabetes Migrainous headaches Anxiety disorder I reviewed the medical records from the [facility] I will start the patient on a low-dose of a beta-delfina namely metoprolol 12.5 mg p.o. twice daily She will be closely monitored on telemetry. Discussed with the patient about doing a stress test to further evaluate her coronary status. Patient is not wanting to go for another stress test since in the past, she had a false positive tests Because of the LV dysfunction, new onset of arrhythmia and shortness of breath with activities, it may be appropriate to go ahead with a cardiac catheterization to further evaluate the coronary status and decide on further management. We may consider doing the procedure tomorrow We will keep her n.p.o. after midnight. May give Lovenox 80 mg subcu now Baby aspirin 1 tablet p.o. daily Check on the lipid profile Based on the clinical progress, further recommendations will be made Thank you for the opportunity to evaluate this patient make these recommendations Consult Attestations Medical Necessity Statement: Patient requires continued hospital stay for close monitoring and further management Coding Level of Care Code Acute Ship Design Teacher for Maame Fwclaus History Detailed Exam Detailed Medical Decision Making High Complexity Diagnoses Atrial fibrillation with rapid ventricular response I48.91 Atypical chest pain R07.89 Systolic dysfunction I51.9
[2022-01-09 16:35] LABS: NT Pro B Type Natriuretic Pept 836 pg/mL (0-125)
[2022-01-09] MEDS: metoprolol tartrate 25 mg Tablet 12.5 MG PO (17:56)
[2022-01-09] MEDS: enoxaparin 80 mg/0.8 mL Syringe SUBCUT (17:57)
--- NOTE | 2022-01-09 19:56 | PC.NURSE ---
Shift Note Frequent safety and comfort rounds continue. Orders and/or nursing care completed as indicated. Patient monitored for response to intervention and treatment(s). Education provided includes metoprolol, possible LHC procedure. Patient and/or fulfillment representative verbalizes understanding and teaches back. Will continue to monitor.
[2022-01-09 20:58] LABS: Chol HDL Ratio 2.37 mg/dL (0.0-4.40); Cholesterol 168 mg/dL (0-200); HDL Cholesterol 71 mg/dL (60-100); LDL Cholesterol Calculated 82 mg/dL (50-129); LDL HDL Ratio 1.15 RATIO (0.00-3.22); Triglycerides 77 mg/dL (0-150)
[2022-01-09] MEDS: polyethylene glycol 3350 Pkt 17 gm PO (21:06)
[2022-01-10] VITALS (57 sets, daily range): BP systolic 90–136; BP diastolic 58–81; PULSE 49–113; RESP 0–40; TEMP 36.6–36.7; O2SAT 90–97
[2022-01-10 04:42] LABS: Anion Gap 13.6 (5-19); Blood Urea Nitrogen 18 mg/dL (8-23); Calcium 9.5 mg/dL (8.5-10.5); Carbon Dioxide 27 mmol/L (22-29); Chloride 106 mmol/L (98-107); Glomerular Filtration Rate 99.1 mL/min (90-130); Glucose 112 mg/dL (65-115); Magnesium 2.2 mg/dL (1.7-2.3); Osmolality Calculated 297 mOsm/kg (285-295); Potassium 4.6 mmol/L (3.5-5.1); Sodium 142 mmol/L (136-145)
[2022-01-10] MEDS: sodium chloride 0.9% 1,000 ML 50 ML IV (05:35)
[2022-01-10] MEDS: aspirin 81 mg EC Tablet PO (08:30)
[2022-01-10] MEDS: metoprolol tartrate 25 mg Tablet 12.5 MG PO (08:30)
[2022-01-10] MEDS: diphenhydrAMINE 50 mg Capsule PO (08:30)
--- NOTE | 2022-01-10 08:41 | W.PM.OPSUD ---
Surgery/Procedure H&P Update DATE OF PROCEDURE: January 10, 2022 DATE H&P PERFORMED: 01/09/22 H&P UPDATE INFORMATION: I have reviewed H&P completed within last 30 days, I have examined patient prior to procedure and No changes to prior documentation PREOP DIAGNOSIS: cardiomyopathy/AFIB/ possible ASHD PRIMARY INDICATION FOR PROCEDURE: Chest pain/shortness of breath/new onset atrial fibrillation/cardiomyopathy PLANNED PROCEDURE: Operation Date: 01/10/22 09:00 Proposed Procedures p Cardiac Catheterization(Left) - Demar Szymanski MD PATIENT REASSESSED PRIOR TO SEDATION, WITH NO CHANGE NOTED: Yes PHYSICAL EXAM: alert, oriented x 3, clear to auscultation bilaterally and regular rate & rhythm AIRWAY EVAL/ANESTHESIA PLAN: normal airway, see other exam findings, ASA II, Monitored Anesthesia, Local Anesthesia, Risks, benefits & alternatives of sedation and/or procedure discussed and Patient agrees to continue as planned
--- NOTE | 2022-01-10 09:00 | XACV_ITS ---
Exam Room: [facility] Ht: 170 cm Wt: 84 kg BSA: 2.01 m2 Gender: Female : 1950 Exam Priority: Routine Procedure(s): Procedure Description: Diagnostic procedure Procedure Description: Left Heart Catheterization Procedure Description: Coronary Angiography Stephon GOODWIN; Diagnostic Cath Status: Elective Diagnostic Findings * Left main is a medium caliber vessel with no significant stenotic lesions. * Left anterior descending artery is a medium caliber vessel which appears to wrap around the LV apex. No significant stenotic lesions were noted. It gives off small diagonal branches which also were found to have no stenotic lesions. * The left circumflex artery is a medium to large caliber dominant vessel with no significant stenotic lesions. It gives off multiple obtuse marginal branches with no significant lesions. * The right coronary artery is a relatively small caliber nondominant vessel with a posterior takeoff. No significant stenotic lesions were noted. Conclusions 1. 71-year-old white female with complaints of. 2. 71-year-old white female with a longstanding history of type 2 diabetes, presented to an outside hospital with complaints of chest pain and shortness of breath. Myocardial infarction was ruled out. She had an echocardiogram done which revealed diffuse hypokinesia of the left ventricle with ejection fraction of 45 to 50%. She was discharged home to have further cardiac work-up as an outpatient. She presented to our hospital with complaints of shortness of breath and dizziness. She was found to be in atrial fibrillation with rapid ventricular rate. In view of her new onset of atrial fibrillation, chest pain/shortness of breath and echocardiographic evidence of LV dysfunction, in order to further evaluate her coronary status, a cardiac catheterization was recommended. Patient underwent left heart catheterization with left and right coronary angiogram today. The findings are as follows. 3. 1. No significant obstructive coronary artery disease. Dominant left circumflex artery . Small nondominant right coronary artery with a posterior takeoff. 2. LVEDP of 18 mmHg.3. LV gram was not performed because of the restrictions on the dye usage. Diagnostic RX Recommendation: medical therapy and/or counseling LV EDP: 18 mmHg Left Ventriculography Findings: * LV gram was not performed because of the restrictions on the dye usage. The LVEDP was 18 mmHg. Pressures Phase:Rest AO : 80 / 53 ( 66 ) @ 10:04:00 AM 111 / 64 ( 87 ) @ 10:12:00 AM 111 / 64 ( 87 ) @ 10:12:00 AM LV : 117 / 0 / 18 @ 10:12:00 AM 125 / -2 / 18 @ 10:12:00 AM Valves Phase:DefaultPhase AV : 13.0 @ 9:18:46 AM AV Mean Gradient: 9.0 @ 9:18:46 AM 9.0 @ 9:18:46 AM Clinical Evaluation EBL: 5mL-10mL Procedural Details Procedure Consent Obtained. Admit Source: In Patient. Pre-Procedure Time Out. Identified patient by full name and date of as verbalized by the patient/guarantor. Does the consent match the physician's order: Yes. Accurate & Complete Informed Consent: Yes. Inpatient/Outpatient History & Physical on Chart: Yes. If H&P is completed, is and addenduem needed: N/A; If yes, is the addendum complete: N/A. Visualize and Verify Site with Patient/Guarantor: N/A. Relevant Radiology Images available: N/A. Pre-op teaching completed and patient verbalized understanding. The risks, benefits, and alternatives of sedation and/or procedure were discussed by physician. The patient agrees to continue. Procedure started. [facility] Clinical Fraility Score: 3: Managing Well. Clam Grader Indications: Worsening Angina. Clam Grader Indications: Cardiac Arrhythmia. Chest Pain Symptom Assessment: Typical Angina Symptoms. Correct patient, site and procedure confirmed by cath team. Current diagnosis: Chest Pain. PERRLA. Strong, equal hand mopper bilaterally. Lungs clear x 5 lobes. IV Site on Arrival: 20 gauge in the left anticubital. IV Fluids: 0.9% NaCl at KVO. 50 mL infused prior to filling station laborer. Pre Procedural Pulses: bilateral dorsalis pedis was 2+. Pre Procedural Pulses: right radial was 2+. Oxygen started at 2liters/min via nasal canula. right groin was prepped with chloroprep then draped in the usual sterile fashion. right radial was prepped with chloroprep then draped in the usual sterile fashion. Physician notified. Baseline sample Acquired. HR: 69 BPM. Physician arrived. Physician scrubbed in. Immediate Pre-Procedure Time Out. Correct Patient: Yes; Correct Procedure: Yes; Correct Site: Yes; Correct Patient Position: Yes; Correct Supplies: Yes; Dried Flammable Prep: Yes; Blood Products Available: N/A;. Lidocaine 1% infiltrated to the right radial. Arterial access obtained. A 5 romanian TIG catheter in over wire. Multiple views taken of left coronary artery. Catheter redirected to the RCA. Catheter out. A 5 romanian JR4 catheter in over wire. EDP Sample taken: LV 117/0,18; HR: 73 BPM; SpO2: 98%. Pullback taken: LV 125/-3,18; AO 111/64(87); Mean: 9mmHg, Peak to Peak: 13mmHg, SEP: 25sec/min; HR: 76 BPM; SpO2: 99%. Multiple views taken of right coronary artery. Catheter removed over the standard wire. Physician scrubbed out. Physician review of cine films. PERRLA. Strong, equal hand mopper bilaterally. Post Procedure: Pulses reassessed and unchanged. No VTE prophylaxis required. Medication's Wasted: Lidocaine 1% = 1 mL. Medication's Wasted: Nitro = 49.8 mg. Medication's Wasted: Heparin = 1000 u. Total IV fluids: 250 mL. Post-op diagnosis: Non Ischemic Cardiomyopthay. Complications: none. Estimated blood loss: 5mL-10mL. Responsiveness - Normal response to verbal stimuli; alert and oriented, PERRLA. Airway - Unaffected, no intervention required; spontaneous ventilation. Circulation: W/N/L, pulses unchanged. Nausea/Vomiting: No. Procedure completed. Patient transferred by wheelchair to ICU. Vital chart was stopped. Access Site Site: Right Radial artery Sheath Size: 6 Fr Hemostasis Success: Unsuccessful Procedure Medications Start: 8:46 AM Stop: 8:46 AM Medication: Fentanyl Amount: 50 mcg Route: I.V. Start: 8:48 AM Stop: 8:48 AM Medication: Versed Amount: 1 mg Route: I.V. Start: 8:53 AM Stop: 8:53 AM Medication: Versed Amount: 1 mg Route: I.V. Start: 8:55 AM Stop: 8:55 AM Medication: Fentanyl Amount: 50 mcg Route: I.V. Start: 9:01 AM Stop: 9:01 AM Medication: Nitrogylcerin Amount: 100 mcg Route: I.A. Start: 9:02 AM Stop: 9:02 AM Medication: Nitrogylcerin Amount: 100 mcg Route: I.A. Start: 9:02 AM Stop: 9:02 AM Medication: Verapamil Amount: 5 mg Route: I.A. Start: 9:03 AM Stop: 9:03 AM Medication: 0.9% Saline Amount: 250 ml Route: I.V. bolus Start: 9:08 AM Stop: 9:08 AM Medication: Heparin Amount: 5000 units Route: I.V. Start: 9:08 AM Stop: 9:08 AM Medication: Versed Amount: 1 mg Route: I.V. Start: 9:15 AM Stop: 9:15 AM Medication: Versed Amount: 1 mg Route: I.V. I, the attending physician, have reviewed and verified all procedure medications. Yes, all medications given per verbal order History/Risk Factors Hypertension: No Dyslipidemia: No Peripheral Arterial Disease (PAD): No Myocardial Infarction ([place]): No Obesity: Yes Renal Disease: No Tobacco Use: Never Prior Interventions PCI: No CABG: No Valve Surgery: No Report Signatures Finalized by Dr Demar Szymanski MD [facility] on 01/10/2022 04:27 PM
--- NOTE | 2022-01-10 09:22 | PM.PN ---
Subjective Subjective: The patient has not had chest pain or any recurrence of atrial fibrillation. She seems to be remaining stable. No shortness of breath. No fever or chills. No cough. No other specific complaints. Medications: Medication Review Details: Current Medications Aspirin (Aspirin 81 Mg Ec Tablet) 81 mg PO DAILY [facility] Last Admin: 01/10/22 08:30 Dose: 81 mg Documented by: Sodium Chloride (Sodium Chloride 0.9%) 1,000 mls @ 50 mls/hr IV .Q20H ONE Stop: 01/10/22 16:23 Last Admin: 01/09/22 22:40 Dose: Not Given Documented by: Sodium Chloride (Sodium Chloride 0.9%) 1,000 mls @ 50 mls/hr IV .Q20H ONE Stop: 01/11/22 00:59 Last Admin: 01/10/22 05:35 Dose: 50 mls/hr Documented by: Metoprolol Tartrate (Metoprolol Tartrate 25 Mg Tablet) 12.5 mg PO BID [facility] Last Admin: 01/10/22 08:30 Dose: 12.5 mg Documented by: Vitals/I&O/Wt Last Vital Signs Temp 98.0 F 01/10/22 04:00 Pulse 84 01/10/22 08:25 Resp 18 01/10/22 04:00 BP 116/60 01/10/22 04:00 Pulse Ox 93 01/10/22 08:25 01/09/22 01/10/22 01/10/22 22:59 06:59 14:59 Intake Total 462 2001 Balance 462 2001 Weight last 48 hrs Weight 185 lb 3.2 oz Weight 180 lb Physical Exam Narrative: GENERAL: The patient is alert and oriented times three. Not in any acute distress. HEENT: No significant pallor, icterus or lymphadenopathy.Oral cavity: There are no mucous membrane lesions. NECK: Trachea appears to be central. No masses noted. No JVD or thyromegaly appreciated. RESPIRATORY: Chest is symmetrical. No intercostals muscle retraction or any accessory muscle activation. There is no chest wall tenderness. Breath sounds are heard bilaterally. No rales or rhonchi heard. No evidence of any consolidation. BREASTS: Deferred. HEART: The heart sounds are normal. No S3 or S4. No significant murmurs. No pericardial rub ABDOMEN: No vessel pulsations or distention. No tenderness. No organomegaly appreciated. Bowel sounds are normally heard. : Deferred. RECTAL: Deferred. LYMPHATIC: No lymphadenopathy noted in the neck. EXTREMITIES: No edema or cyanosis. No clubbing. MUSCULOSKELETAL: No acute joint deformities or swelling SKIN: There are no significant rashes or ecchymosis NEUROPSYCHIATRIC: The patient is alert and oriented x3. Appears to be in a good mood. No tremors or rigidity noted. Data : 01/09/22 06:10 01/10/22 03:57 Other Labs: Laboratory Last Values WBC 7.8 10^3/uL (4.0-10.0) 01/09/22 06:10 RBC 4.14 10^6/uL (4.1-5.3) 01/09/22 06:10 Hgb 12.5 g/dL (11.5-15.3) 01/09/22 06:10 Hct 39.8 % (37.0-47.0) 01/09/22 06:10 MCV 96.1 fl (81-99) 01/09/22 06:10 MCH 30.2 pg (28.0-34.0) 01/09/22 06:10 MCHC 31.4 g/dL (30.0-36.0) 01/09/22 06:10 RDW 13.0 % (12.1-15.1) 01/09/22 06:10 Plt Count 194 10^3/cmm (130-400) 01/09/22 06:10 MPV 10.6 fL (7.4-10.4) H 01/09/22 06:10 Neut % (Auto) 59.4 % 01/09/22 06:10 Lymph % (Auto) 25.5 % 01/09/22 06:10 [place] % (Auto) 10.1 % 01/09/22 06:10 Eos % (Auto) 3.6 % 01/09/22 06:10 Baso % (Auto) 0.9 % 01/09/22 06:10 Neut # (Auto) 4.65 10^3/uL (1.8-7.7) 01/09/22 06:10 Lymph # (Auto) 2.0 10^3/uL (0.8-4.8) 01/09/22 06:10 [place] # (Auto) 0.8 10^3/uL (0.2-0.9) 01/09/22 06:10 Eos # (Auto) 0.3 10^3/uL (0.0-0.8) 01/09/22 06:10 Baso # (Auto) 0.1 10^3/uL (0.0-0.1) 01/09/22 06:10 Nucleated RBC % (auto) 0 % 01/09/22 06:10 Nucleated RBCs # 0.0 /100WBC 01/09/22 06:10 D-Dimer 0.93 ug/mIFEU (0-0.59) H 01/08/22 12:58 Sodium 142 mmol/L (136-145) 01/10/22 03:57 Potassium 4.6 mmol/L (3.5-5.1) 01/10/22 03:57 Chloride 106 mmol/L (98-107) 01/10/22 03:57 Carbon Dioxide 27 mmol/L (22-29) 01/10/22 03:57 Anion Gap 13.6 (5-19) 01/10/22 03:57 BUN 18 mg/dL (8-23) 01/10/22 03:57 Creatinine 0.6 mg/dL (0.5-0.9) 01/10/22 03:57 GFR Calculation 99.1 mL/min (90-130) 01/10/22 03:57 Glucose 112 mg/dL (65-115) 01/10/22 03:57 Calculated Osmolality 297 mOsm/kg (285-295) H 01/10/22 03:57 Calcium 9.5 mg/dL (8.5-10.5) 01/10/22 03:57 Magnesium 2.2 mg/dL (1.7-2.3) 01/10/22 03:57 Total Bilirubin 0.5 mg/dL (0.15-1.2) 01/08/22 12:58 AST 15 U/L (0-32) 01/08/22 12:58 ALT 11 U/L (0-33) 01/08/22 12:58 Alkaline Phosphatase 74 IU/L (35-105) 01/08/22 12:58 Troponin T Baseline 8 ng/L (0-10) 01/08/22 12:58 Troponin T 120 Minute 8.35 ng/L (0-10) 01/08/22 14:59 Delta Troponin T 0.35 ABS# (0-10) 01/08/22 14:59 Troponin T Hi Sens 6Hr 6.95 ng/L (0-10) 01/08/22 19:48 Troponin T Hi Sens 6Hr Delta -1.05 ng/L (0-12) L 01/08/22 19:48 NT-Pro-B Natriuret Pep 836 pg/mL (0-125) H 01/09/22 06:10 Total Protein 6.2 g/dL (6.6-8.7) L 01/08/22 12:58 Albumin 4.0 g/dL (3.5-5.2) 01/08/22 12:58 Globulin 2.2 g/dL (1.3-4.6) 01/08/22 12:58 Triglycerides 77 mg/dL (0-150) 01/09/22 06:10 Cholesterol 168 mg/dL (0-200) 01/09/22 06:10 LDL Cholesterol, Calc 82 mg/dL (50-129) 01/09/22 06:10 HDL Cholesterol 71 mg/dL (60-100) 01/09/22 06:10 LDL/HDL Ratio 1.15 RATIO (0.00-3.22) 01/09/22 06:10 Cholesterol/HDL Ratio 2.37 mg/dL (0.0-4.40) 01/09/22 06:10 Lipase 21 U/L (13-60) 01/08/22 12:58 TSH 1.51 uIU/mL (0.27-4.20) 01/08/22 12:58 Free T4 1.03 ng/dL (0.82-1.77) 01/08/22 12:58 A&P Assessment and plan (1) Atrial fibrillation with rapid ventricular response: Patient had the palpitation with dizziness lasting for a total of 4 hours or so. Currently she is in sinus rhythm. Etiology is not clear. Possibility of having underlying coronary ischemia causing the arrhythmia is a consideration. So far she has no evidence of any myocardial injury. Status: Acute (2) Atypical chest pain: Possibility of underlying coronary ischemia causing the chest pain, shortness of breath and arrhythmia is a consideration. According the patient, she did not have any significant blockages 6 years ago. This may need to be further evaluated. Status: Acute (3) Systolic dysfunction: Etiology is not clear. Coronary ischemia/arrhythmia causing this is a consideration. Apparently she never had any palpitation or documented arrhythmia prior to the current event. Status: Acute Plan Her other problems are Daytime somnolence Degenerative joint disease Type 2 diabetes Migrainous headaches Anxiety disorder In view of the patient's new symptoms, new onset of atrial fibrillation and the echocardiographic evidence ofa drop in the LV ejection fraction, it may be appropriate to go ahead with a cardiac catheterization to further evaluate the coronary status and decide on further management. The risk of bleeding, hematoma, vascular injury, myocardial infarction, CVA, renal failure and other concomitant complications were explained in detail. Patient understood this well and consented to proceed. We may coordinate with the procedure this morning. Based on the results, further recommendations will be made. Attestations Medical Necessity Statement*: Patient requires continued hospital stay for close monitoring and further management Coding Level of Care Code Acute Supervisor Cooler Service for Chg Fwd History Expanded Problem Focused Exam Detailed Medical Decision Making Moderate Complexity Diagnoses Atrial fibrillation with rapid ventricular response I48.91 Atypical chest pain R07.89 Systolic dysfunction I51.9
--- NOTE | 2022-01-10 09:51 | PC.NURSE ---
0830 to skill labor then to ICU-2 for crdiac monitoring.
--- NOTE | 2022-01-10 12:56 | P.DS_ITS ---
Discharge Providers Date of Admission: 01/09/22 17:01 Date of Discharge: January 10, 2022 Attending Provider at Admission: Mirna Messer MD Attending Provider at Discharge: Mirna Messer MD Primary Care Provider: Adriano Navarro Diagnoses at Discharge Discharge Diagnosis (1) Atrial fibrillation with rapid ventricular response: Status: Acute (2) Atypical chest pain: Status: Acute (3) Systolic dysfunction: Status: Acute Reason for Visit Reason for Visit: DIZZY/ AFIB Brief History: Augustina Ugarte is a 71 year old female with past medical history of prediabetes, generalized anxiety disorder, obstructive sleep apnea, gastroparesis, irritable bowel syndrome presented to the hospital with complaint of lightheadedness and dizziness.? This started around 9 AM this morning.? She says that last night she started experiencing lightheadedness and since then had a near syncope episode.? Denies chest pain, diaphoresis, nausea, vomiting, shortness of breath.? She called EMS and came to the emergency room.? She says she was recently at [facility] and stayed there overnight and was kept on telemetry which was normal.? They did an echocardiogram and EKGs which were all normal as well.? She states she has had an enlarged heart all her life because as a child she had rheumatic fever.? Review of systems are completely negative at this time. ED course: In route to ER she was noted to be in atrial flutter with heart rate in 140s.? She received 20 mg IM Cardizem on her way to the hospital.? But when she got to the hospital she was in normal sinus rhythm and she had converted already.? Blood pressure 115/79, respiratory 20, pulse 177, temperature 97.9, saturating 96% on room air.? Digoxin was also ordered for her which was not given because she had converted to sinus rhythm.? She did not have any further sensation of lightheadedness.? Hospitalist was called for admission.? CTA chest has been ordered at this time which is pending to rule out PE. Hospital Course Hospital Course Patient remained asymptomatic during hospital stay. Records reviewed from [facility] which showed diffuse hypokinesia of left ventricle with EF of 45%. Cardiology was consulted. Patient went for angiogram 01/10/2022 did not have any significant coronary artery disease. Final report is pending. Event monitor will be set up for her for 30 days. She has been started on metoprolol 12.5 twice daily. Patient will be discharged home with follow-up with cardiology as an outpatient. Physical Exam Narrative: General: Alert oriented x3, patient seen eating up in bed appearing comfortable at this time. HEENT: Normocephalic, atraumatic, EOMI, breathing normally Cardio: Regular rate rhythm, normal S1-S2, Respiratory: Good bilateral air entry, no wheezes no rhonchi appreciated GI: Abdomen soft, nontender, nondistended, bowel sounds + Behavior: Appropriate and cooperative Extremities: no edema, no cyanosis Discharge Data Studies Completed and Pending Completed Studies During Hospitalization Category Date Time Status CTA chest [CT angio chest PE protcl [id number]] Urgent Cat Scan 01/08/22 15:13 Completed Pending at discharge Category Date Time Status ICE CREAM MIXER request for service Routine Exams 01/10/22 09:00 Ordered Radiology Impressions Chest CTA 01/08/22 15:13 IMPRESSION: No evidence of pulmonary embolism. Laboratory Results WBC 7.8 10^3/uL (4.0-10.0) 01/09/22 06:10 RBC 4.14 10^6/uL (4.1-5.3) 01/09/22 06:10 Hgb 12.5 g/dL (11.5-15.3) 01/09/22 06:10 Hct 39.8 % (37.0-47.0) 01/09/22 06:10 MCV 96.1 fl (81-99) 01/09/22 06:10 MCH 30.2 pg (28.0-34.0) 01/09/22 06:10 MCHC 31.4 g/dL (30.0-36.0) 01/09/22 06:10 RDW 13.0 % (12.1-15.1) 01/09/22 06:10 Plt Count 194 10^3/cmm (130-400) 01/09/22 06:10 MPV 10.6 fL (7.4-10.4) H 01/09/22 06:10 Neut % (Auto) 59.4 % 01/09/22 06:10 Lymph % (Auto) 25.5 % 01/09/22 06:10 [place] % (Auto) 10.1 % 01/09/22 06:10 Eos % (Auto) 3.6 % 01/09/22 06:10 Baso % (Auto) 0.9 % 01/09/22 06:10 Neut # (Auto) 4.65 10^3/uL (1.8-7.7) 01/09/22 06:10 Lymph # (Auto) 2.0 10^3/uL (0.8-4.8) 01/09/22 06:10 [place] # (Auto) 0.8 10^3/uL (0.2-0.9) 01/09/22 06:10 Eos # (Auto) 0.3 10^3/uL (0.0-0.8) 01/09/22 06:10 Baso # (Auto) 0.1 10^3/uL (0.0-0.1) 01/09/22 06:10 Nucleated RBC % (auto) 0 % 01/09/22 06:10 Nucleated RBCs # 0.0 /100WBC 01/09/22 06:10 D-Dimer 0.93 ug/mIFEU (0-0.59) H 01/08/22 12:58 Sodium 142 mmol/L (136-145) 01/10/22 03:57 Potassium 4.6 mmol/L (3.5-5.1) 01/10/22 03:57 Chloride 106 mmol/L (98-107) 01/10/22 03:57 Carbon Dioxide 27 mmol/L (22-29) 01/10/22 03:57 Anion Gap 13.6 (5-19) 01/10/22 03:57 BUN 18 mg/dL (8-23) 01/10/22 03:57 Creatinine 0.6 mg/dL (0.5-0.9) 01/10/22 03:57 GFR Calculation 99.1 mL/min (90-130) 01/10/22 03:57 Glucose 112 mg/dL (65-115) 01/10/22 03:57 Calculated Osmolality 297 mOsm/kg (285-295) H 01/10/22 03:57 Calcium 9.5 mg/dL (8.5-10.5) 01/10/22 03:57 Magnesium 2.2 mg/dL (1.7-2.3) 01/10/22 03:57 Total Bilirubin 0.5 mg/dL (0.15-1.2) 01/08/22 12:58 AST 15 U/L (0-32) 01/08/22 12:58 ALT 11 U/L (0-33) 01/08/22 12:58 Alkaline Phosphatase 74 IU/L (35-105) 01/08/22 12:58 Troponin T Baseline 8 ng/L (0-10) 01/08/22 12:58 Troponin T 120 Minute 8.35 ng/L (0-10) 01/08/22 14:59 Delta Troponin T 0.35 ABS# (0-10) 01/08/22 14:59 Troponin T Hi Sens 6Hr 6.95 ng/L (0-10) 01/08/22 19:48 Troponin T Hi Sens 6Hr Delta -1.05 ng/L (0-12) L 01/08/22 19:48 NT-Pro-B Natriuret Pep 836 pg/mL (0-125) H 01/09/22 06:10 Total Protein 6.2 g/dL (6.6-8.7) L 01/08/22 12:58 Albumin 4.0 g/dL (3.5-5.2) 01/08/22 12:58 Globulin 2.2 g/dL (1.3-4.6) 01/08/22 12:58 Triglycerides 77 mg/dL (0-150) 01/09/22 06:10 Cholesterol 168 mg/dL (0-200) 01/09/22 06:10 LDL Cholesterol, Calc 82 mg/dL (50-129) 01/09/22 06:10 HDL Cholesterol 71 mg/dL (60-100) 01/09/22 06:10 LDL/HDL Ratio 1.15 RATIO (0.00-3.22) 01/09/22 06:10 Cholesterol/HDL Ratio 2.37 mg/dL (0.0-4.40) 01/09/22 06:10 Lipase 21 U/L (13-60) 01/08/22 12:58 TSH 1.51 uIU/mL (0.27-4.20) 01/08/22 12:58 Free T4 1.03 ng/dL (0.82-1.77) 01/08/22 12:58 Vitals Last Vital Signs Temp 98.0 F 01/10/22 04:00 Pulse 55 L 01/10/22 11:45 Resp 13 01/10/22 11:45 BP 90/58 01/10/22 10:03 Pulse Ox 90 01/10/22 11:45 Discharge Plan Discharge Patient Disposition: Home Condition: Stable Prescriptions: New metoprolol tartrate 25 mg Tablet 12.5 mg PO BID 30 Days Qty: 30 0RF Continued cholecalciferol (vitamin D3) 50 mcg (2,000 unit) capsule 50 mcg PO DAILY 0RF mecobalamin (vitamin B12) 1,000 mcg tablet,chewable 2,000 mcg PO DAILY 0RF Emgality Pen 120 mg/mL pen injector 120 mg SUBCUT .monthly 0RF Aspir-81 81 mg Tablet,Delayed Release (Dr/Ec) 81 mg PO DAILY 0RF calcium carb-mag ox-zinc gluc 333-133-5 mg Tablet 1 tab PO DAILY 0RF Referrals: Demar Szymanski MD [Physician] - 1 month Ebony Perry FNP [Nurse Practitioner] - 1 week Damian Navarro MD [Primary Care Provider] - 4-7 days Discharge Activity: Resume usual activity Patient Instructions: Opioid Safety Activity Restrictions/Additional Instructions: Please return to hospital for event monitor setup as directed. Return to ER if lightheadedness occurs, dizziness, fainting spell, chest pain or any new symptoms that you develop. Discharge Attestations Time Spent in Discharge Care*: less than 30 min Quality Metrics Clinical Quality Measures [ No reported AMI, CVA or VTE this stay] Coding Level of Care Code Acute Chg FW DC note Diagnoses Atrial fibrillation with rapid ventricular response I48.91 Atypical chest pain R07.89 Systolic dysfunction I51.9 Time Spent (min) 30
== END 2022-01-10 17:16 | disposition home or self-care (01) | DRG 287 ==
LOC: ER 16:31 → MEDSURG 16:43 → ICU 01-10 09:21
PROVIDERS: Internal Medicine Cardiovascular Disease; Admitting Provider Internal Medicine; Emergency Provider Emergency Medicine; PCP Family Medicine; Visit Provider Internal Medicine
DX: I48.91 Unspecified atrial fibrillation (principal); I48.92 Unspecified atrial flutter; I51.89 Other ill-defined heart diseases; I42.8 Other cardiomyopathies; K58.9 Irritable bowel syndrome, unspecified; G47.33 Obstructive sleep apnea (adult) (pediatric); E11.43 Type 2 diabetes mellitus with diabetic autonomic (poly)neuropathy; K31.84 Gastroparesis; G43.909 Migraine, unspecified, not intractable, without status migrainosus; F41.1 Generalized anxiety disorder; R55 Syncope and collapse; R07.89 Other chest pain; Z79.82 Long term (current) use of aspirin
CPT/HCPCS: 36415; 71275; 80048; 80053; 80061; 83690; 83735; 83880; 84439; 84443; 84484; 85025; 85378; 93005; 93452; 93458; 94760; 96360; 96372; 99152; 99153; 99285; C1769; C1887; C1894; G0378; J1644; J1650; J2250; J3010; J3490; J7030; Q0163; Q9967

== ENCOUNTER → 2022-01-16 10:45 | Outpatient (BNVA) | payer MEDICARE, MEDICAID, SELFPAY | PROVIDERS: PCP Family Medicine; Visit Provider Nurse Practitioner Family | DX: I48.91 Unspecified atrial fibrillation (principal) | CPT/HCPCS: 93229; 99214 ==

== ENCOUNTER → 2022-01-16 11:42 | Outpatient (BNVA) | payer MEDICARE, MEDICAID, SELFPAY | PROVIDERS: PCP Family Medicine; Visit Provider Nurse Practitioner Family | DX: Z53.9 Procedure and treatment not carried out, unspecified reason (principal) ==

== ENCOUNTER → 2022-02-09 10:47 | Outpatient (BNVA) | payer MEDICARE, MEDICAID, SELFPAY | PROVIDERS: PCP Family Medicine; Visit Provider Internal Medicine Cardiovascular Disease | DX: I48.91 Unspecified atrial fibrillation (principal); I51.9 Heart disease, unspecified; G47.33 Obstructive sleep apnea (adult) (pediatric) | CPT/HCPCS: 99213 ==

== ENCOUNTER 2022-02-18 14:18 | Emergency (ER) | payer MEDICARE, MEDICAID, SELFPAY ==
[2022-02-18 14:34] VITALS: BP 115/71; PULSE 77; RESP 15; TEMP 36.8; O2SAT 98; BMI 29.0
[2022-02-18 14:53] VITALS: BP 138/95; PULSE 72; RESP 19; O2SAT 98
--- NOTE | 2022-02-18 15:12 | ED_ITS ---
HPI - Eye Problem General: Chief complaint: Eye Problems Stated complaint: L Eye swollen, irregular hr, weakness Time Seen by Provider: 02/18/22 14:39 Source: patient Mode of arrival: ambulatory Limitations: no limitations History of Present Illness: 71-year-old female presents emergency room with complaints of eye swelling she also is reporting irregular heart rate and weakness. She states that she was out in the wind for period of time she felt like something blew in her left eye and she could not get it out. She thought she was in A. fib for a few minutes and then resolved. She is not previously been in atrial fibrillation. She still has some swelling and discomfort to her left eye and is holding it closed. No visual disturbance. MD chief complaint: eye pain, eye redness and eye injury Onset (ago): hour(s) Onset description: sudden Duration: constant Location: left eye Eye Symptoms: pain, foreign body sensation and discharge Place: home Mechanism: other (Danyelle exposure debris) Severity: mild If Pain, Quality: sharp Associated symptoms: Denies cough, fever(s), headache(s), nausea, neck pain, numbness, rhinorrhea, short of breath, vomiting or weakness Treatments Prior to Arrival: irrigated eye Review of Systems Const: Denies: fever(s), chills, fatigue or malaise Eyes: Reports: eye discomfort, eye discharge and eye redness ENMT: Denies: throat pain, ear or mastoid pain, nasal discharge or nasal congestion Card: Reports: palpitations and irregular heart rhythm; Denies: chest pain, edema, dyspnea on exertion or orthopnea Resp: Denies: dyspnea, productive cough or non-productive cough GI: Denies: abdominal pain, nausea or vomiting : Denies: flank pain, difficulty voiding, dysuria, urinary frequency or urinary urgency Musc: Denies: neck pain Skin/Breast: Denies: rash or pruritus Neuro: Denies: headache(s) Physical Exam Const: GENERAL APPEARANCE: cooperative and comfortable ORIENTATION/CONSCIOUSNESS: Yes awake, Yes oriented to person, Yes oriented to place and Yes oriented to time HENMT: COMMON NORMALS: normocephalic, atraumatic and hearing grossly normal bilaterally HEAD & SCALP: normocephalic and atraumatic Eye: OTHER: Gross examination of the eye with eversion of the eyelids did not appreciate any foreign bodies or obvious defects. There are some mild arcus senilis Resp: COMMON NORMALS: normal respiratory effort, No retractions, No use of a ccessory muscles and clear to auscultation bilaterally AUSCULTATION: clear to auscultation bilaterally Cardio: COMMON NORMALS: regular rate, regular rhythm and No murmurs present (Cardio) RATE: regular rate RHYTHM: regular rhythm Extremity: COMMON NORMALS: normal to inspection, capillary refill normal, no clubbing, cyanosis or edema, no calf tenderness and no pedal edema Neuro: SENSORIUM/ORIENTATION: Yes oriented to person, Yes oriented to place and Yes oriented to time Skin: COMMON NORMALS: no rashes or lesions noted GENERAL SKIN EXAM: no rashes or lesions noted Course Vital Signs: Vital signs: Vital Signs Temperature 98.2 F 02/18/22 14:34 Pulse Rate 76 02/18/22 15:26 Respiratory Rate 17 02/18/22 15:26 Blood Pressure 122/75 02/18/22 15:26 Pulse Oximetry 97 02/18/22 15:26 Oxygen Delivery Me thod 02/18/22 14:53 MDM - Eye Problem Medical Decision Making Refer to ophthalmology for full slit-lamp exam. We do not have a black light exam for evaluation of abrasion at this time they have agreed to see her shortly we will discharge her from here to the ophthalmology clinic. Patient's EKG shows a normal sinus rhythm recommend that she follow-up with her primary care doctor for further evaluation if she has recurrence of symptoms. Medical Records I reviewed the patient's medical records. Lab Data I reviewed the patient's lab results. Discharge Plan Discharge Patient Disposition: Home Clinical Impression: Foreign body in eye Condition: Stable Discharge Orders: Discharge ED (Routine); Ordered 02/18/22 Ordered By: Howie Santiago Patient Instructions: Opioid Safety Activity Restrictions/Additional Instructions: Discharged from the emergency room to Dr. Telles's office so he will do a full slit-lamp eye exam Coding Level of Care Code ED Federal Agent for Chg Fwd Exam Detailed
--- NOTE | 2022-02-18 15:13 | ECG_ITS ---
[facility] Test Date: 2022-02-18 Pat Name: Augustina Ugarte Department: Room: Gender: Female Engineer Systems: : 1950 Requested By: Howie Paulino Order Number: [id number] Yolanda MD: Ruby Brothers M.D. Measurements Intervals [place] Rate: 65 P: 55 OR: 186 QRS: 1 QRSD: 96 T: 70 QT: 421 QTc: 441 Interpretive Statements SINUS RHYTHM LOW QRS VOLTAGE IN PRECORDIAL LEADS [QRS DEFLECTION < 1.0 mV IN CHEST LEADS] POSSIBLE RIGHT VENTRICULAR CONDUCTION DELAY [RSR (QR) IN V1/V2] No previous ECG available for comparison Electronically Signed On 02-18-2022 16:38:38 CDT by Ruby Brothers M.D. [email or web address]
[2022-02-18 15:26] VITALS: BP 122/75; PULSE 76; RESP 17; O2SAT 97
== END 2022-02-18 15:28 | disposition home or self-care (01) ==
PROVIDERS: Emergency Provider Family Medicine
DX: T15.92XA Foreign body on external eye, part unspecified, left eye, initial encounter (principal); X58.XXXA Exposure to other specified factors, initial encounter
CPT/HCPCS: 93005; 99283

== ENCOUNTER → 2022-05-06 09:33 | Outpatient (BNVA) | payer MEDICARE, MEDICAID, SELFPAY | PROVIDERS: PCP Family Medicine; Visit Provider Nurse Practitioner Family | DX: I48.91 Unspecified atrial fibrillation (principal); I51.9 Heart disease, unspecified | CPT/HCPCS: 99214 ==

== ENCOUNTER 2022-06-02 09:05 | Outpatient (CLI) | payer MEDICARE, MEDICAID, SELFPAY ==
--- NOTE | 2022-06-02 09:30 | USCV_ITS ---
Augustina Ugarte Age: 71 Gender: F : 1950 Exam Date: 06/02/2022 09:30 Ordering Phys: Ebony Perry Technologist: INES Exam Location: [facility] [place] Indication: MIDLY REDUCED SYSTOLIC FUNCATION BP: 122 / 78 HR: 71 Rhythm: Sinus Technical Quality: Adequate MEASUREMENTS (Male / Female) Normal Values 2D ECHO LVOT Diameter 2.0 cm LV Ejection Fraction MOD 2C 63.1 % LV Ejection Fraction 2C AL 62.3 % LA Diameter 3.6 cm LA Width 3.0 cm LA Height 4.7 cm RA Width 3.4 cm RA Height 4.3 cm Aorta at Sinotubular Diameter 2.1 cm IVC Diameter 1.8 cm M-MODE Aortic Annulus Diameter 2.5 cm LA Ao Ratio MM 1.5 MV E Point Septal Separation 0.4 cm DOPPLER AV Peak Velocity 145.0 cm/s LVOT Peak Velocity 101.0 cm/s AV Area Cont Eq vti 2.4 cm squared AV Area Cont Eq pk 2.3 cm squared MV Peak Velocity 80.0 cm/s MV Area PHT 3.2 cm squared Mitral E to A Ratio 0.7 MV E' Velocity 35.5 cm/s Mitral E to MV E' Ratio 6.3 Mitral E to LV E' Lateral Ratio 6.5 Mitral E to LV E' Septal Ratio 6.2 TV Peak E Velocity 47.0 cm/s Right Atrial Pressure 3.0 mmHg PV Peak Velocity 113.0 cm/s RV Acceleration Time 0.1 s RV Ejection Time 0.3 s RV AcT/ET 0.4 FINDINGS Left Ventricle Normal left ventricular size and systolic function, EF 65 %. No regional wall motion abnormalities. Grade I/IV diastolic dysfunction (abnormal relaxation filling pattern), normal to mildly elevated filling pressures. Right Ventricle Normal right ventricular size and systolic function. Right Atrium The right atrium is normal in size. Left Atrium The left atrium is normal in size. Mitral Valve No gross abnormalities noted Aortic Valve Appears to be tricuspid with no gross abnormalities Tricuspid Valve No gross abnormalities noted Pulmonic Valve No gross abnormalities noted Pericardium No pericardial effusion. Aorta Normal ascending aorta dimension. IVC The inferior vena cava appears normal. CONCLUSIONS Normal left ventricular size and systolic function, EF 65 %. No regional wall motion abnormalities. Grade I/IV diastolic dysfunction (abnormal relaxation filling pattern), normal to mildly elevated filling pressures. Normal cardiac chamber sizes. No significant stenotic or regurgitant valvular lesions There is no pericardial effusion. There are no intracardiac masses. No similar previous studies are available for comparison Dr Demar Szymanski MD [facility] (Electronically Signed) Final Date: 02 June 2022 20:36 S
== END 2022-06-02 09:06 | disposition home or self-care (01) ==
LOC: RAD 09:06
PROVIDERS: PCP Family Medicine; Visit Provider Nurse Practitioner Family
DX: I48.91 Unspecified atrial fibrillation (principal); I51.9 Heart disease, unspecified
CPT/HCPCS: 93306

== ENCOUNTER → 2022-07-03 08:03 | Outpatient (BNVA) | payer MEDICARE, MEDICAID, SELFPAY | PROVIDERS: PCP Family Medicine; Visit Provider Internal Medicine Pulmonary Disease | DX: I48.91 Unspecified atrial fibrillation (principal); F41.9 Anxiety disorder, unspecified; F32.A Depression, unspecified; E55.9 Vitamin D deficiency, unspecified; K58.9 Irritable bowel syndrome, unspecified | CPT/HCPCS: 99213; 99214 ==

== ENCOUNTER 2022-11-01 15:46 | Emergency (ER) | payer MEDICARE, MEDICAID, SELFPAY ==
[2022-11-01 15:51] VITALS: BP 136/63; PULSE 101; TEMP 36.8; O2SAT 97; BMI 29.5
--- NOTE | 2022-11-01 16:30 | CTR_ITS ---
PROCEDURE INFORMATION: Exam: CT Head Without Contrast Exam date and time: 11/01/2022 4:50 PM Age: 71 years old Clinical indication: Dizziness; Additional info: Vertigo with dizziness TECHNIQUE: Imaging protocol: Computed tomography of the head without contrast. Radiation optimization: All CT scans at this facility use at least one of these dose optimization techniques: automated exposure control; mA and/or kV adjustment per patient size (includes targeted exams where dose is matched to clinical indication); or iterative reconstruction. REPORTING DATA: Count of CT and Cardiac NM exams in prior 12 months: This patient has received [address] and 0 known cardiac nuclear medicine studies in the 12 months prior to the current study. COMPARISON: No relevant prior studies available. RADIATION DOSE METRICS: Total DLP (mGy-cm): 1021.17 FINDINGS: Brain: Normal. No hemorrhage. Unremarkable white matter. No mass effect. Cerebral ventricles: No ventriculomegaly. Paranasal sinuses: Visualized sinuses are unremarkable. No fluid levels. Mastoid air cells: Visualized mastoid air cells are well aerated. Bones/joints: Unremarkable. No acute fracture. Soft tissues: Unremarkable. CT/CT head wo con* [id number] IMPRESSION: No acute intracranial abnormality.
--- NOTE | 2022-11-01 16:31 | ECG_ITS ---
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 Measurements Intervals [place] Rate: 82 P: -11 [place]: 171 QRS: 7 QRSD: 93 T: 51 QT: 371 QTc: 436 Interpretive Statements SINUS RHYTHM WITH OCCASIONAL VENTRICULAR PREMATURE COMPLEXES Low voltage complexes in the precordial leads POSSIBLE ANTERIOR MYOCARDIAL INFARCTION , OF INDETERMINATE AGE [30 ms Q WAVE IN V3/V4, OR R < 0.2 mV IN V4] Compared to ECG 01/08/2022 18:09:57 Ventricular premature complex(es) now present Myocardial infarct finding now present Electronically Signed On 11-01-2022 21:13:35 CDT by Demar Szymanski M.D. [id number]
--- NOTE | 2022-11-01 16:39 | ED_ITS ---
HPI - Eye Problem General: Chief complaint: Eye Problems Stated complaint: double vision Time Seen by Provider: 11/01/22 16:07 History of Present Illness: 71-year-old female presents emergency department chief complaint of seeing double and diplopia after starting some new medications patient reports she is being currently worked up for sleep apnea what she is having excess amounts of daytime somnolence in which she was started on Adderall as well as Ativan which she takes during the daytime encouraged the Adderall and Ativan at night to help her sleep patient reports these are new in regards to couple last couple of weeks patient reports that she has intermittent diplopia at times and seeing double which she has been seen by ophthalmology previously patient does not report any recent trauma or head injury reports a prior history of closed head injury however she does recall recently seen by 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 Patient reports she woke up this morning which she was seeing double which she was trying to drive to [facility]. Patient does not report any known history of underlying strokes or TIAs she reports she is on no blood thinning agents reports no other focal weakness or other symptoms. Patient presents to the ER with for further assessment and management. Associated symptoms: Denies fever(s), nausea or vomiting Review of Systems General: Reports: 10 or more systems reviewed and unremarkable except in HPI and below Const: Denies: fever(s), chills, fatigue or malaise Eyes: Denies: change in vision or blurry vision ENMT: Reports: disequilibrium and other (Diplopia with her eyes are open) Card: Denies: chest pain or palpitations Resp: Denies: dyspnea or productive cough GI: Denies: abdominal pain, nausea or vomiting : Denies: flank pain Musc: Denies: extremity pain or extremity swelling Skin/Breast: Denies: rash or pruritus Neuro: Reports: dizziness (Diplopia) Psych: Denies: anxiety or depression Octaviano/Lymph: Denies: easy bleeding All/Imm: Denies: urticaria, throat swelling or facial swelling PFSH ED PFSH: Medical History Depression Nocturnal hypoxia Family History Sister Cancer breast, leukemia Father CAD (coronary artery disease) Diabetes Mother Diabetes CHF (congestive heart failure) Social History Smoking and tobacco status: never smoked Second hand smoke exposure: Yes Smoking risk assessment/counseling performed?: No Alcohol intake: never Desire information about alcohol rehabilitation?: No Counseling given: No Substance/Drug Use: never Caregiver/support person: No Lives independently: Yes Household members: none Marital status: Single service: No Current occupational status: retired and disabled Do you think of yourself as: Straight/Heterosexual Current gender identity: Female Physical Exam Const: COMMON NORMALS: no acute distress, patient oriented x3 and healthy appearing HENMT: COMMON NORMALS: normocephalic and atraumatic HEAD & SCALP: normocephalic and atraumatic Eye: COMMON NORMALS: Equal, round and reactive pupils present and EOMs intact bilaterally (Mild nystagmus appreciated with movement to the eyes to the left otherwise ) PUPIL: Yes Equal, round and reactive pupils present Neck/C-Spine: COMMON NORMALS: full ROM, supple and no JVD Lymph: LYMPHATIC: no lymphadenopathy noted Chest: COMMONS NORMALS: normal inspection of the chest and normal palpation of entire chest wall Resp: COMMON NORMALS: normal respiratory effort, No retractions and clear to auscultation bilaterally EFFORT & INSPECTION: Yes able to speak in complete sentences and Yes symmetric chest movement AUSCULTATION: clear to a uscultation bilaterally Cardio: COMMON NORMALS: no JVD, regular rate and regular rhythm RATE: regular rate RHYTHM: regular rhythm GI: COMMON NORMALS: Normal to inspection, nondistended, normoactive bowel sounds present, Soft to palpation and non-tender INSPECTION: Yes normal to inspection PALPATION: Yes Soft to palpation : COMMON NORMALS: Yes no CVA tenderness BLADDER/KIDNEY EXAM: Yes no CVA tenderness Back/Pelvis: COMMON NORMALS: no CVA tenderness Extremity: COMMON NORMALS: normal to inspection and full ROM Neuro: COMMON NORMALS: patient oriented x3, CN's II-XII intact bilaterally, moves all extremities and no focal motor deficits Psych: COMMON NORMALS: mental status grossly normal, Normal thought process present, cooperative and normal affect THOUGHT PROCESS: Normal thought process present Skin: COMMON NORMALS: no rashes or lesions noted GENERAL SKIN EXAM: no liza hes or lesions noted Course Vital Signs: Vital signs: Vital Signs Temperature 98.3 F 11/01/22 15:51 Pulse Rate 80 11/01/22 18:17 Blood Pressure 131/78 11/01/22 18:17 Pulse Oximetry 95 11/01/22 18:17 Oxygen Delivery Me thod Room Air 11/01/22 18:17 MDM - Eye Problem Medical Decision Making The patient's symptoms and condition this may be medication interaction however will be continue to rule out a subacute stroke we will continue to follow patient's CAT scan imaging came back unremarkable as well as regular lab work and imaging. Upon reassessment patient remains improved status reports mild improvement of her dizziness at this time but it is attributed to her either her Ativan or her Adderall. Did advise further follow-up outpatient with her primary care doctor as well as director global market research for further assessment management which patient advised return the interim if any of her symptoms persist or worse. Lab Data 11/01/22 16:45 11/01/22 16:[address] 11/01/22 16:30 IMPRESSION: No acute intracranial abnormality. Laboratory Results WBC 8.1 10^3/uL (4.0-10.0) 11/01/22 16:45 RBC 4.69 10^6/uL (4.1-5.3) 11/01/22 16:45 Hgb 13.9 g/dL (11.5-15.3) 11/01/22 16:45 Hct 43.0 % (37.0-47.0) 11/01/22 16:45 MCV 91.7 fl (81-99) 11/01/22 16:45 MCH 29.6 pg (28.0-34.0) 11/01/22 16:45 MCHC 32.3 g/dL (30.0-36.0) 11/01/22 16:45 RDW 12.9 % (12.1-15.1) 11/01/22 16:45 Plt Count 235 10^3/cmm (130-400) 11/01/22 16:45 MPV 10.6 fL (7.4-10.4) H 11/01/22 16:45 Neut % (Auto) 58.3 % 11/01/22 16:45 Lymph % (Auto) 31.9 % 11/01/22 16:45 [place] % (Auto) 7.6 % 11/01/22 16:45 Eos % (Auto) 0.9 % 11/01/22 16:45 Baso % (Auto) 0.9 % 11/01/22 16:45 Neut # (Auto) 4.75 10^3/uL (1.8-7.7) 11/01/22 16:45 Lymph # (Auto) 2.6 10^3/uL (0.8-4.8) 11/01/22 16:45 [place] # (Auto) 0.6 10^3/uL (0.2-0.9) 11/01/22 16:45 Eos # (Auto) 0.1 10^3/uL (0.0-0.8) 11/01/22 16:45 Baso # (Auto) 0.1 10^3/uL (0.0-0.1) 11/01/22 16:45 Nucleated RBC % (auto) 0 % 11/01/22 16:45 Nucleated RBCs # 0.0 /100WBC 11/01/22 16:45 PT 13.10 SECONDS (12.1-14.9) 11/01/22 16:45 INR 0.96 (0.8-1.2) 11/01/22 16:45 APTT 28.3 SECONDS (23.9-36.7) 11/01/22 16:45 Sodium 140 mmol/L (136-145) 11/01/22 16:45 Potassium 3.5 mmol/L (3.5-5.1) 11/01/22 16:45 Chloride 100 mmol/L (98-107) 11/01/22 16:45 Carbon Dioxide 27 mmol/L (22-29) 11/01/22 16:45 Anion Gap 16.5 (5-19) 11/01/22 16:45 BUN 10 mg/dL (8-23) 11/01/22 16:45 Creatinine 0.6 mg/dL (0.5-0.9) 11/01/22 16:45 GFR Calculation 99.1 mL/min (90-130) 11/01/22 16:45 Glucose 115 mg/dL (65-115) 11/01/22 16:45 Calculated Osmolality 290 mOsm/kg (285-295) 11/01/22 16:45 Calcium 10.0 mg/dL (8.5-10.5) 11/01/22 16:45 Total Bilirubin 0.4 mg/dL (0.15-1.2) 11/01/22 16:45 AST 17 U/L (0-32) 11/01/22 16:45 ALT 11 U/L (0-33) 11/01/22 16:45 Alkaline Phosphatase 99 U/L (35-105) 11/01/22 16:45 Troponin T Baseline 6 ng/L (0-10) 11/01/22 16:45 Troponin T 120 Minute 6.00 ng/L (0-10) 11/01/22 18:58 Total Protein 7.5 g/dL (6.6-8.7) 11/01/22 16:45 Albumin 4.5 g/dL (3.5-5.2) 11/01/22 16:45 Globulin 3.0 g/dL (1.3-4.6) 11/01/22 16:45 Urine Color Straw (Yellow) 11/01/22 17:30 Urine Appearance Clear (CLEAR) 11/01/22 17:30 Urine pH 5 (5-7) 11/01/22 17:30 Ur Specific [place] 1.005 (1.005-1.030) 11/01/22 17:30 Urine Protein Neg (Negative) 11/01/22 17:30 Urine Glucose (UA) Norm (Normal) 11/01/22 17:30 Urine Ketones Negative (Negative) 11/01/22 17:30 Urine Blood Neg (Negative) 11/01/22 17:30 Urine Nitrate Negative (Negative) 11/01/22 17:30 Urine Bilirubin Neg (Negative) 11/01/22 17:30 Urine Urobilinogen Norm mg/dL (Negative) 11/01/22 17:30 Ur Leukocyte Esterase Negative (Negative) 11/01/22 17:30 Discharge Plan Discharge Condition: Stable Prescriptions: No Action cholecalciferol (vitamin D3) 50 mcg (2,000 unit) capsule 50 mcg PO DAILY mecobalamin (vitamin B12) 1,000 mcg tablet,chewable 2,000 mcg PO DAILY dextroamphetamine-amphetamine [Adderall] 5 mg tablet 5 mg PO DAILY Hold Instructions: adderall not available lorazepam 0.5 mg tablet 0.5 mg PO BID PRN Sunosi 75 mg tablet 75 mg PO DAILY aspirin 81 mg Tablet,Delayed Release (Dr/Ec) 81 mg PO DAILY calcium carb-mag ox-zinc gluc 333-133-5 mg Tablet 1 tab PO DAILY Referrals: CHRIS BETANCUR MD [Primary Care Provider] - Coding Level of Care Code ED 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
[2022-11-01 17:12] LABS: Basophils # 0.1 10^3/uL (0.0-0.1); Basophils % 0.9 %; Eosinophils # 0.1 10^3/uL (0.0-0.8); Eosinophils % 0.9 %; Hemoglobin 13.9 g/dL (11.5-15.3); Lymphocytes # 2.6 10^3/uL (0.8-4.8); Lymphocytes % 31.9 %; Mean Corpuscular HGB Conc 32.3 g/dL (30.0-36.0); Mean Corpuscular Hemoglobin 29.6 pg (28.0-34.0); Mean Corpuscular Volume 91.7 fl (81-99); Mean Platelet Volume 10.6 fL (7.4-10.4); Monocytes # 0.6 10^3/uL (0.2-0.9); Monocytes % 7.6 %; Neutrophils # 4.75 10^3/uL (1.8-7.7); Neutrophils % 58.3 %; Nucleated Red Blood Cells % 0 %; Platelet Count 235 10^3/cmm (130-400); Red Blood Count 4.69 10^6/uL (4.1-5.3); Red Cell Distribution Width 12.9 % (12.1-15.1); White Blood Count 8.1 10^3/uL (4.0-10.0)
[2022-11-01] MEDS: sodium chloride 0.9% 1,000 ML 999 ML IV (17:17)
[2022-11-01] MEDS: dexamethasone 10 mg/mL INJ IVP (17:18)
[2022-11-01] MEDS: ondansetron 2 mg/ML SDV 2 mL 4 MG IVP (17:18)
[2022-11-01] MEDS: meclizine 25 mg tablet 50 MG PO (17:18)
[2022-11-01 17:24] VITALS: BP 153/92; PULSE 86; O2SAT 95
[2022-11-01 17:27] LABS: INR 0.96 (0.8-1.2)
[2022-11-01 17:28] LABS: Partial Thromboplastin Time 28.3 SECONDS (23.9-36.7)
[2022-11-01 17:30] VITALS: BP 124/82; PULSE 83; O2SAT 99
[2022-11-01 17:36] LABS: Add Urine Microscopic? NO; Charge for UA Resulting for Rev
[2022-11-01 17:37] LABS: Alanine Aminotransferase 11 U/L (0-33); Albumin Level 4.5 g/dL (3.5-5.2); Alkaline Phosphatase 99 U/L (35-105); Anion Gap 16.5 (5-19); Aspartate Amino Transferase 17 U/L (0-32); Blood Urea Nitrogen 10 mg/dL (8-23); Carbon Dioxide 27 mmol/L (22-29); Chloride 100 mmol/L (98-107); Creatinine Clr Calc Pharmacy 72.0667; Glomerular Filtration Rate 99.1 mL/min (90-130); Glucose 115 mg/dL (65-115); Osmolality Calculated 290 mOsm/kg (285-295); Potassium 3.5 mmol/L (3.5-5.1); Sodium 140 mmol/L (136-145); Total Bilirubin 0.4 mg/dL (0.15-1.2); Total Protein 7.5 g/dL (6.6-8.7); Troponin(5th) Baseline 6 ng/L (0-10)
[2022-11-01 17:42] LABS: Bilirubin Urine Neg (Negative); Blood Urine Neg (Negative); Glucose Urine UA Norm (Normal); Ketones Urine Negative (Negative); Leukocyte Esterase Urine Negative (Negative); Nitrate Urine Negative (Negative); Protein Urine Neg (Negative); Specific Gravity, Urine 1.005 (1.005-1.030); Urine Appearance Clear (CLEAR); Urine Color Straw (Yellow); Urobilinogen Urine Norm (Negative); pH Urine 5 (5-7)
[2022-11-01 18:17] VITALS: BP 131/78; PULSE 80; O2SAT 95
[2022-11-01 19:48] LABS: Troponin 5 2HR Delta 0 ABS# (0-10)
== END 2022-11-01 20:00 | disposition home or self-care (01) ==
PROVIDERS: Emergency Provider Emergency Medicine; PCP Family Medicine
DX: H53.2 Diplopia (principal); Z79.82 Long term (current) use of aspirin; Z77.22 Contact with and (suspected) exposure to environmental tobacco smoke (acute) (chronic)
CPT/HCPCS: 36415; 70450; 80053; 81003; 84484; 85025; 85610; 85730; 93005; 96374; 96375; 99285; J1100; J2405; J7030; J8597

== ENCOUNTER 2022-12-05 05:23 | Emergency (ER) | payer MEDICARE, MEDICAID, SELFPAY ==
[2022-12-05] VITALS (9 sets, daily range): BP systolic 111–119; BP diastolic 56–69; PULSE 75–108; RESP 13–19; TEMP 36.6; O2SAT 92–97; BMI 29.8
--- NOTE | 2022-12-05 05:37 | ECG_ITS ---
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 Measurements Intervals [place] Rate: 76 P: 60 [place]: 176 QRS: 8 QRSD: 80 T: 47 QT: 374 QTc: 423 Interpretive Statements SINUS RHYTHM LOW QRS VOLTAGE IN PRECORDIAL LEADS [QRS DEFLECTION < 1.0 mV IN CHEST LEADS] POSSIBLE ANTERIOR MYOCARDIAL INFARCTION , PROBABLY OLD [30 ms Q WAVE IN V3/V4, OR R < 0.2 mV IN V4] Compared to ECG 11/01/2022 16:48:22 Ventricular premature complex(es) no longer present Myocardial infarct finding still present Electronically Signed On 12-05-2022 7:48:44 CDT by Christopher Howard M.D. [id number]
--- NOTE | 2022-12-05 05:37 | XRR_ITS ---
PROCEDURE INFORMATION: Exam: XR Chest Exam date and time: 12/05/2022 5:48 AM Age: 72 years old Clinical indication: Pain; Chest pressure; Additional info: Cp.No history of trauma or recent surgery is provided. TECHNIQUE: Imaging protocol: Radiologic exam of the chest. 1image(s) are provided. Views: 1 view. COMPARISON: CT angio chest PE protcl [id number] 01/08/2022 5:38 PM. No previous chest radiograph is currently available. FINDINGS: Lungs: There appears to be some patchy subsegmental atelectasis at the lung bases with no lobar type consolidation currently appreciated. There is minimal subsegmental atelectasis versus post inflammatory scarring demonstrated. Pleural spaces: There is some marginal costophrenic angle blunting. No pneumothorax is appreciated. Heart/Mediastinum: The cardiomediastinal silhouette is upper normal. No cardiac decompensation is appreciated. Diaphragm: The hemidiaphragms are symmetric. Bones/joints: There is some posttraumatic and surgical appearance of the left shoulder along with some bulky glenohumeral spurring and narrowing overall bilaterally. Osseous alignment is maintained.No interval displaced fracture or dislocation is appreciated. Soft tissues: No radiopaque foreign body or subcutaneous emphysema is appreciated. Other findings: No other significant interval changes are appreciated. XR/XR chest 1V portable [id number] IMPRESSION: There is some patchy subsegmental atelectasis versus early inflammation of the left lung base more so than right. Overall no lobar type consolidation or cardiac decompensation is appreciated.
[2022-12-05 05:56] LABS: Basophils # 0.1 10^3/uL (0.0-0.1); Basophils % 0.5 %; Eosinophils # 0.1 10^3/uL (0.0-0.8); Eosinophils % 1.2 %; Hematocrit 38.7 % (37.0-47.0); Hemoglobin 12.3 g/dL (11.5-15.3); Lymphocytes # 1.7 10^3/uL (0.8-4.8); Lymphocytes % 14.4 %; Mean Corpuscular HGB Conc 31.8 g/dL (30.0-36.0); Mean Corpuscular Hemoglobin 30.1 pg (28.0-34.0); Mean Corpuscular Volume 94.6 fl (81-99); Mean Platelet Volume 10.3 fL (7.4-10.4); Monocytes # 1.1 10^3/uL (0.2-0.9); Monocytes % 9.5 %; Neutrophils # 8.43 10^3/uL (1.8-7.7); Neutrophils % 73.8 %; Nucleated Red Blood Cells % 0 %; Platelet Count 197 10^3/cmm (130-400); Red Blood Count 4.09 10^6/uL (4.1-5.3); Red Cell Distribution Width 13.3 % (12.1-15.1); White Blood Count 11.4 10^3/uL (4.0-10.0)
--- NOTE | 2022-12-05 06:04 | W.ED.CHESTPA ---
Documented by User: Param Urias DO 12/05/22 17:40 HPI - Chest Pain General: Chief Complaint: Chest Pain Stated Complaint: CHEST PAIN/HEADACHE Time Seen by Provider: 12/05/22 05:30 Source: patient History of Present Illness: 72-year-old female with no prior history of coronary disease. She has a history of atrial fibrillation 1 time she says that she had a negative angiogram within the last year. She presents with chest discomfort starting around 6 PM last night. She locates it to the left lower chest. It is somewhat worse with deep inspiration. She denies cough. She denies reproducibility on palpation. She seems quite astute. She denies fever. No increased leg swelling. She did have a trip to [place] this past week which is a significant drive for her. MD complaint: chest pain Pertinent past history: other Onset (ago): hour(s) Prior episodes: No Onset: during rest Pain location: left chest Pain radiation: none Quality: sharp Relieving factors: nothing Exacerbating factors: inspiration Associated symptoms: Reports dyspnea; Deny abdominal pain, diaphoresis, fever(s), leg edema, nausea, palpitations or vomiting Treatment prior to arrival: none Review of Systems Const: Denies: fever(s) or diaphoresis ENMT: Denies: throat pain Card: Reports: chest pain; Denies: palpitations Resp: Reports: dyspnea; Denies: productive cough or non-productive cough GI: Denies: abdominal pain, nausea or vomiting : Denies: flank pain or difficulty voiding Musc: Reports: back pain (chronic) PFS ED PFSH: Medical History Depression Nocturnal hypoxia Family History Sister Cancer breast, leukemia Father CAD (coronary artery disease) Diabetes Mother Diabetes CHF (congestive heart failure) Social History Smoking and tobacco status: never smoked Second hand smoke exposure: Yes Smoking risk assessment/counseling performed?: No Alcohol intake: never Desire information about alcohol rehabilitation?: No Counseling given: No Substance/Drug Use: never Caregiver/support person: No Lives independently: Yes Household members: none Marital status: Single service: No Current occupational status: retired and disabled Do you think of yourself as: Straight/Heterosexual Current gender identity: Female Physical Exam Const: COMMON NORMALS: no acute distress GENERAL APPEARANCE: cooperative and anxious; not ill appearing and not frail appearing HENMT: COMMON NORMALS: normocephalic, atraumatic and Normal external nose present HEAD & SCALP: normocephalic and atraumatic FACE & SINUS: normal facial exam and face symmetric NOSE: Normal external nose present Eye: COMMON NORMALS: Equal, round and reactive pupils present and EOMs intact bilaterally PUPIL: Yes Equal, round and reactive pupils present Neck/C-Spine: GENERAL: Yes trachea midline Chest: CHEST: Yes Symmetrical chest wall rise Resp: COMMON NORMALS: normal respiratory effort, No retractions, No use of accessory muscles and clear to auscultation bilaterally AUSCULTATION: clear to auscultation bilaterally Cardio: COMMON NORMALS: regular rate and regular rhythm RATE: regular rate RHYTHM: regular rhythm GI: COMMON NORMALS: Normal to inspection, nondistended, normoactive bowel sounds present Extremity: COMMON NORMALS: no pedal edema Neuro: POLINA COMA SCALE: document GCS findings Pol[place] coma scale eye opening: Spontaneous [place] coma scale verbal response: Orientated [place] coma scale motor response: Obey commands [place] coma scale total score: 15 SENSORY EXAM: Yes extremities (intact) Psych: COMMON NORMALS: speech normal SPEECH: Yes normal speech Skin: COMMON NORMALS: no rashes or lesions noted GENERAL SKIN EXAM: no rashes or lesions noted Course Vital Signs: Vital signs: Vital Signs Temperature 98 F 12/05/22 05:24 Pulse Rate 81 12/05/22 10:10 Respiratory Rate 18 12/05/22 10:10 Blood Pressure 119/69 12/05/22 10:10 Pulse Oximetry 97 12/05/22 10:10 [facility] - Chest Pain Medical Decision Making 72-year-old female with a normal ejection fraction by last echo in May. She presents with chest discomfort. Somewhat pleuritic. She has a negative appearing chest x-ray. White blood cell count is 11.4. CBC is otherwise nonremarkable. Other laboratories pending. Her last echocardiogram revealed an EF of 65%. She has had an angiogram in the last year, back in December showing no significant coronary stenosis. Awaiting troponin and other laboratory. She will be checked out to the next oncoming physician. Lab Data 12/05/22 05:45 06/17/23 05:45 Radiology Impressions Chest X-Ray 12/05/22 05:37 IMPRESSION: There is some patchy subsegmental atelectasis versus early inflammation of the left lung base more so than right. Overall no lobar type consolidation or cardiac decompensation is appreciated. Chest CTA 12/05/22 06:48 IMPRESSION: 1. The study is limited for pulmonary thromboembolism evaluation with aortic predominant bolus. Overall no large central saddle type embolus is currently appreciated. 2. No interval thoracic aortic saccular aneurysmal dilatation or intimal irregularity is appreciated. 3. There is some patchy subsegmental atelectasis versus early inflammation of the lung bases bilaterally. No interval lobar consolidation or cardiac decompensation is appreciated. Laboratory Results WBC 11.4 10^3/uL (4.0-10.0) H 12/05/22 05:45 RBC 4.09 10^6/uL (4.1-5.3) L 12/05/22 05:45 Hgb 12.3 g/dL (11.5-15.3) 12/05/22 05:45 Hct 38.7 % (37.0-47.0) 12/05/22 05:45 MCV 94.6 fl (81-99) 12/05/22 05:45 MCH 30.1 pg (28.0-34.0) 12/05/22 05:45 MCHC 31.8 g/dL (30.0-36.0) 12/05/22 05:45 RDW 13.3 % (12.1-15.1) 12/05/22 05:45 Plt Count 197 10^3/cmm (130-400) 12/05/22 05:45 MPV 10.3 fL (7.4-10.4) 12/05/22 05:45 Neut % (Auto) 73.8 % 12/05/22 05:45 Lymph % (Auto) 14.4 % 12/05/22 05:45 [place] % (Auto) 9.5 % 12/05/22 05:45 Eos % (Auto) 1.2 % 12/05/22 05:45 Baso % (Auto) 0.5 % 12/05/22 05:45 Neut # (Auto) 8.43 10^3/uL (1.8-7.7) H 12/05/22 05:45 Lymph # (Auto) 1.7 10^3/uL (0.8-4.8) 12/05/22 05:45 [place] # (Auto) 1.1 10^3/uL (0.2-0.9) H 12/05/22 05:45 Eos # (Auto) 0.1 10^3/uL (0.0-0.8) 12/05/22 05:45 Baso # (Auto) 0.1 10^3/uL (0.0-0.1) 12/05/22 05:45 Nucleated RBC % (auto) 0 % 12/05/22 05:45 Nucleated RBCs # 0.0 /100WBC 12/05/22 05:45 PT 13.70 SECONDS (12.1-14.9) 12/05/22 05:45 INR 1.02 (0.8-1.2) 12/05/22 05:45 APTT 28.2 SECONDS (23.9-36.7) 12/05/22 05:45 D-Dimer 0.78 ug/mIFEU (0-0.59) H 12/05/22 05:45 Sodium 140 mmol/L (136-145) 12/05/22 05:45 Potassium 4.1 mmol/L (3.5-5.1) 12/05/22 05:45 Chloride 104 mmol/L (98-107) 12/05/22 05:45 Carbon Dioxide 25 mmol/L (22-29) 12/05/22 05:45 Anion Gap 15.1 (5-19) 12/05/22 05:45 BUN 15 mg/dL (8-23) 12/05/22 05:45 Creatinine 0.5 mg/dL (0.5-0.9) 12/05/22 05:45 GFR Calculation 122.0 mL/min (90-130) 12/05/22 05:45 Glucose 121 mg/dL (65-115) H 12/05/22 05:45 Calculated Osmolality 292 mOsm/kg (285-295) 12/05/22 05:45 Calcium 9.2 mg/dL (8.5-10.5) 12/05/22 05:45 Total Bilirubin 0.9 mg/dL (0.15-1.2) 12/05/22 05:45 AST 12 U/L (0-32) 12/05/22 05:45 ALT 9 U/L (0-33) 12/05/22 05:45 Alkaline Phosphatase 75 U/L (35-105) 12/05/22 05:45 Troponin T Baseline 6 ng/L (0-10) 12/05/22 05:45 Troponin T 120 Minute 6.00 ng/L (0-10) 12/05/22 07:45 Delta Troponin T 0 ABS# (0-10) 12/05/22 07:45 NT-Pro-B Natriuret Pep 438 pg/mL (0-125) H 12/05/22 05:45 Total Protein 6.4 g/dL (6.6-8.7) L 12/05/22 05:45 Albumin 3.8 g/dL (3.5-5.2) 12/05/22 05:45 Globulin 2.6 g/dL (1.3-4.6) 12/05/22 05:45 Discharge Plan Discharge Patient Disposition: Home Clinical Impression: Chest pain, Pneumonia Condition: Stable Prescriptions: New amoxicillin-pot clavulanate 875-125 mg tablet 1 tab PO BID Qty: 20 0RF No Action cholecalciferol (vitamin D3) 50 mcg (2,000 unit) capsule 50 mcg PO DAILY mecobalamin (vitamin B12) 1,000 mcg tablet,chewable 2,000 mcg PO DAILY dextroamphetamine-amphetamine [Adderall] 5 mg tablet 5 mg PO DAILY Hold Instructions: adderall not available lorazepam 0.5 mg tablet 0.5 mg PO BID PRN Sunosi 75 mg tablet 75 mg PO DAILY meclizine 25 mg tablet 25 mg PO BID PRN (Reason: vertigo/diplopia) Qty: 20 0RF ondansetron 4 mg tablet,disintegrating 4 mg PO Q8H PRN (Reason: nausea and vomiting) Qty: 20 0RF aspirin 81 mg Tablet,Delayed Release (Dr/Ec) 81 mg PO DAILY calcium carb-mag ox-zinc gluc 333-133-5 mg Tablet 1 tab PO DAILY Discharge Orders: Discharge ED (Routine); Ordered 12/05/22 Ordered By: Alexis Angeles Referrals: CHRIS BETANCUR MD [Primary Care Provider] - Discharge Diet: Usual diet Discharge Activity: Increase activity as tolerated Patient Instructions: Chest Pain (ED), Acute Headache (ED), Pneumonia (ED), Opioid Safety Activity Restrictions/Additional Instructions: Thank you for visiting the emergency department. You were seen and evaluated for chest pain and headache. The exact cause of your symptoms is unclear though may be related to pneumonia. Given prior cardiac evaluation as discussed I do not believe that you need further inpatient evaluation of chest pain. Please follow-up with your primary care provider. You may use [id number] medications such as acetaminophen and ibuprofen for pain however please do not exceed the daily recommended dosage as listed on the packaging and please keep in mind that many namebrand medications contain the same active ingredients. Please avoid these medications if previously instructed to do so by another physician due to other underlying medical condition. Please ensure that you are staying hydrated. Return to the emergency department for anything that you are concerned about and feel needs emergency department evaluation. Sign Out Sign Out Data: Patient Sign Out occurred on 12/05/22 at 06:40. Patient's care was discussed, and care was transferred from to Alexis Angeles MD. Coding Level of Care Code ED Aircraft Powerplant Repairer for Chg Fwd Documented by User: Alexis Angeles MD 12/15/22 01:22 HPI - Chest Pain General: Chief Complaint: Chest Pain Stated Complaint: CHEST PAIN/HEADACHE Time Seen by Provider: 12/05/22 05:30 [facility] ED PFSH: Medical History Depression Nocturnal hypoxia Family History Sister Cancer breast, leukemia Father CAD (coronary artery disease) Diabetes Mother Diabetes CHF (congestive heart failure) Social History Smoking and tobacco status: never smoked Second hand smoke exposure: Yes Smoking risk assessment/counseling performed?: No Alcohol intake: never Desire information about alcohol rehabilitation?: No Counseling given: No Substance/Drug Use: never Caregiver/support person: No Lives independently: Yes Household members: none Marital status: Single service: No Current occupational status: retired and disabled Do you think of yourself as: Straight/Heterosexual Current gender identity: Female Physical Exam Neuro: POLINA COMA SCALE: document GCS findings [place] coma scale total score: 15 Course Vital Signs: Vital signs: Vital Signs Temperature 98 F 12/05/22 05:24 Pulse Rate 81 12/05/22 10:10 Respiratory Rate 18 12/05/22 10:10 Blood Pressure 119/69 12/05/22 10:10 Pulse Oximetry 97 12/05/22 10:10 MDM - Chest Pain Medical Decision Making 72-year-old female with a normal ejection fraction by last echo in May. She presents with chest discomfort. Somewhat pleuritic. She has a negative appearing chest x-ray. White blood cell count is 11.4. CBC is otherwise nonremarkable. Other laboratories pending. Her last echocardiogram revealed an EF of 65%. She has had an angiogram in the last year, back in December showing no significant coronary stenosis. Awaiting troponin and other laboratory. She will be checked out to the next oncoming physician. Patient care handoff received from Dr. Urias pending completion of ED evaluation. I reviewed laboratory studies. Apparently in clinical history patient has history of prior episode of atrial fibrillation, additionally she had recent vehicle travel, previously ordered D-dimer is mildly elevated even above age-adjusted cut off and therefore warrants CT angiography of the chest to evaluate for thromboembolic disease. CT notable for no significant abnormality though somewhat limited evaluation. Possible pneumonia identified which will be treated. Patient had cardiac cath which was disease-free essentially in December 2021. Additionally at that time echocardiogram had resolved prior reported reduced ejection fraction. Given this cardiac evaluation in addition to ED evaluation patient does not require admission at this time. The results of ED evaluation were discussed with the patient including prescriptions and/or symptomatic cares (if applicable) including appropriate and responsible use, followup plan, and return precautions. The patient verbalized understanding and felt safe for discharge. Alexis Angeles MD Emergency Medicine Lab Data 12/05/22 05:45 12/05/22 05:45 Radiology Impressions Chest X-Ray 12/05/22 05:37 IMPRESSION: There is some patchy subsegmental atelectasis versus early inflammation of the left lung base more so than right. Overall no lobar type consolidation or cardiac decompensation is appreciated. Chest CTA 12/05/22 06:48 IMPRESSION: 1. The study is limited for pulmonary thromboembolism evaluation with aortic predominant bolus. Overall no large central saddle type embolus is currently appreciated. 2. No interval thoracic aortic saccular aneurysmal dilatation or intimal irregularity is appreciated. 3. There is some patchy subsegmental atelectasis versus early inflammation of the lung bases bilaterally. No interval lobar consolidation or cardiac decompensation is appreciated. Laboratory Results WBC 11.4 10^3/uL (4.0-10.0) H 12/05/22 05:45 RBC 4.09 10^6/uL (4.1-5.3) L 12/05/22 05:45 Hgb 12.3 g/dL (11.5-15.3) 12/05/22 05:45 Hct 38.7 % (37.0-47.0) 12/05/22 05:45 MCV 94.6 fl (81-99) 12/05/22 05:45 MCH 30.1 pg (28.0-34.0) 12/05/22 05:45 MCHC 31.8 g/dL (30.0-36.0) 12/05/22 05:45 RDW 13.3 % (12.1-15.1) 12/05/22 05:45 Plt Count 197 10^3/cmm (130-400) 12/05/22 05:45 MPV 10.3 fL (7.4-10.4) 12/05/22 05:45 Neut % (Auto) 73.8 % 12/05/22 05:45 Lymph % (Auto) 14.4 % 12/05/22 05:45 [place] % (Auto) 9.5 % 12/05/22 05:45 Eos % (Auto) 1.2 % 12/05/22 05:45 Baso % (Auto) 0.5 % 12/05/22 05:45 Neut # (Auto) 8.43 10^3/uL (1.8-7.7) H 12/05/22 05:45 Lymph # (Auto) 1.7 10^3/uL (0.8-4.8) 12/05/22 05:45 [place] # (Auto) 1.1 10^3/uL (0.2-0.9) H 12/05/22 05:45 Eos # (Auto) 0.1 10^3/uL (0.0-0.8) 12/05/22 05:45 Baso # (Auto) 0.1 10^3/uL (0.0-0.1) 12/05/22 05:45 Nucleated RBC % (auto) 0 % 12/05/22 05:45 Nucleated RBCs # 0.0 /100WBC 12/05/22 05:45 PT 13.70 SECONDS (12.1-14.9) 12/05/22 05:45 INR 1.02 (0.8-1.2) 12/05/22 05:45 APTT 28.2 SECONDS (23.9-36.7) 12/05/22 05:45 D-Dimer 0.78 ug/mIFEU (0-0.59) H 12/05/22 05:45 Sodium 140 mmol/L (136-145) 12/05/22 05:45 Potassium 4.1 mmol/L (3.5-5.1) 12/05/22 05:45 Chloride 104 mmol/L (98-107) 12/05/22 05:45 Carbon Dioxide 25 mmol/L (22-29) 12/05/22 05:45 Anion Gap 15.1 (5-19) 12/05/22 05:45 BUN 15 mg/dL (8-23) 12/05/22 05:45 Creatinine 0.5 mg/dL (0.5-0.9) 12/05/22 05:45 GFR Calculation 122.0 mL/min (90-130) 12/05/22 05:45 Glucose 121 mg/dL (65-115) H 12/05/22 05:45 Calculated Osmolality 292 mOsm/kg (285-295) 12/05/22 05:45 Calcium 9.2 mg/dL (8.5-10.5) 12/05/22 05:45 Total Bilirubin 0.9 mg/dL (0.15-1.2) 12/05/22 05:45 AST 12 U/L (0-32) 12/05/22 05:45 ALT 9 U/L (0-33) 12/05/22 05:45 Alkaline Phosphatase 75 U/L (35-105) 12/05/22 05:45 Troponin T Baseline 6 ng/L (0-10) 12/05/22 05:45 Troponin T 120 Minute 6.00 ng/L (0-10) 12/05/22 07:45 Delta Troponin T 0 ABS# (0-10) 12/05/22 07:45 NT-Pro-B Natriuret Pep 438 pg/mL (0-125) H 12/05/22 05:45 Total Protein 6.4 g/dL (6.6-8.7) L 12/05/22 05:45 Albumin 3.8 g/dL (3.5-5.2) 12/05/22 05:45 Globulin 2.6 g/dL (1.3-4.6) 12/05/22 05:45 Discharge Plan Discharge Patient Disposition: Home Clinical Impression: Chest pain, Pneumonia Condition: Stable Prescriptions: New amoxicillin-pot clavulanate 875-125 mg tablet 1 tab PO BID Qty: 20 0RF No Action cholecalciferol (vitamin D3) 50 mcg (2,000 unit) capsule 50 mcg PO DAILY mecobalamin (vitamin B12) 1,000 mcg tablet,chewable 2,000 mcg PO DAILY dextroamphetamine-amphetamine [Adderall] 5 mg tablet 5 mg PO DAILY Hold Instructions: adderall not available lorazepam 0.5 mg tablet 0.5 mg PO BID PRN Sun[place] 75 mg tablet 75 mg PO DAILY meclizine 25 mg tablet 25 mg PO BID PRN (Reason: vertigo/diplopia) Qty: 20 0RF ondansetron 4 mg tablet,disintegrating 4 mg PO Q8H PRN (Reason: nausea and vomiting) Qty: 20 0RF aspirin 81 mg Tablet,Delayed Release (Dr/Ec) 81 mg PO DAILY calcium carb-mag ox-zinc gluc 333-133-5 mg Tablet 1 tab PO DAILY Discharge Orders: Discharge ED (Routine); Ordered 12/05/22 Ordered By: Alexis Angeles Referrals: CHRIS BETANCUR MD [Primary Care Provider] - Discharge Diet: Usual diet Discharge Activity: Increase activity as tolerated Patient Instructions: Chest Pain (ED), Acute Headache (ED), Pneumonia (ED), Opioid Safety Activity Restrictions/Additional Instructions: Thank you for visiting the emergency department. You were seen and evaluated for chest pain and headache. The exact cause of your symptoms is unclear though may be related to pneumonia. Given prior cardiac evaluation as discussed I do not believe that you need further inpatient evaluation of chest pain. Please follow-up with your primary care provider. You may use yrri-lvx-qwtzchv medications such as acetaminophen and ibuprofen for pain however please do not exceed the daily recommended dosage as listed on the packaging and please keep in mind that many namebrand medications contain the same active ingredients. Please avoid these medications if previously instructed to do so by another physician due to other underlying medical condition. Please ensure that you are staying hydrated. Return to the emergency department for anything that you are concerned about and feel needs emergency department evaluation. Sign Out Sign Out Data: Patient Sign Out occurred on 12/05/22 at 06:40. Patient's care was discussed, and care was transferred from to Alexis Angeles MD. Coding Level of Care Code ED Aircraft Powerplant Repairer for Maame Macario
[2022-12-05 06:14] LABS: INR 1.02 (0.8-1.2)
[2022-12-05 06:15] LABS: Partial Thromboplastin Time 28.2 SECONDS (23.9-36.7)
[2022-12-05 06:17] LABS: D Dimer 0.78 ug/mIFEU (0-0.59)
[2022-12-05 06:25] LABS: Troponin(5th) Baseline 6 ng/L (0-10)
[2022-12-05 06:26] LABS: Alanine Aminotransferase 9 U/L (0-33); Albumin Level 3.8 g/dL (3.5-5.2); Alkaline Phosphatase 75 U/L (35-105); Anion Gap 15.1 (5-19); Aspartate Amino Transferase 12 U/L (0-32); Blood Urea Nitrogen 15 mg/dL (8-23); Calcium 9.2 mg/dL (8.5-10.5); Carbon Dioxide 25 mmol/L (22-29); Chloride 104 mmol/L (98-107); Creatinine Clr Calc Pharmacy 71.4269; Globulin 2.6 g/dL (1.3-4.6); Glucose 121 mg/dL (65-115); NT Pro B Type Natriuretic Pept 438 pg/mL (0-125); Osmolality Calculated 292 mOsm/kg (285-295); Potassium 4.1 mmol/L (3.5-5.1); Sodium 140 mmol/L (136-145); Total Bilirubin 0.9 mg/dL (0.15-1.2); Total Protein 6.4 g/dL (6.6-8.7)
--- NOTE | 2022-12-05 06:48 | CTR_ITS ---
PROCEDURE INFORMATION: Exam: CTA Chest With Contrast Exam date and time: 12/05/2022 7:11 AM Age: 72 years old Clinical indication: Pain; Chest pressure; Additional info: L chest pain, somewhat pleuritic, elevated ddimer.No history of trauma or recent surgery is provided. TECHNIQUE: Imaging protocol: Computed tomographic angiography of the chest with contrast. Exam focused on the arteries. 874image(s) are provided. 3D rendering (Not supervised by radiologist): MIP and/or 3D reconstructed images were created by the technologist. Radiation optimization: All CT scans at this facility use at least one of these dose optimization techniques: automated exposure control; mA and/or kV adjustment per patient size (includes targeted exams where dose is matched to clinical indication); or iterative reconstruction. Contrast material: OMNI 350; Contrast volume: 100 ml; Contrast route: INTRAVENOUS (IV); Other technique: Axial images are available with sagittal and coronal reconstruction views. Automated dose exposure control is utilized. The DLP is 478.36. REPORTING DATA: Count of CT and Cardiac NM exams in prior 12 months: This patient has received 2 known CTs and 0 known cardiac nuclear medicine studies in the 12 months prior to the current study. COMPARISON: 1. CT angio chest PE protcl [id number] 01/08/2022 5:38 PM 2. CR (CHEST, ) 12/05/2022 5:48 AM RADIATION DOSE METRICS: Total DLP (mGy-cm): 478.36 FINDINGS: Pulmonary arteries: No large central pulmonary arterial filling defect is appreciated. Segmental and subsegmental evaluation is overall limited as the bolus is aortic. Aorta: No thoracic interval aortic saccular aneurysmal dilatation or intimal irregularity is appreciated. Trachea: The central airways are patent. Lungs: There is some patchy subsegmental atelectasis versus early inflammation of the lung bases with no lobar type consolidation currently appreciated. Pleural spaces: No significant pleural effusion is currently appreciated. No pneumothorax is appreciated. Heart: There is some borderline cardiac chamber enlargement overall. No significant pericardial fluid collection is appreciated. Lymph nodes: There are subcentimeter predominant mediastinal and hilar lymph nodes overall present. Liver: There appears to be some hepatic steatosis. Gallbladder and bile ducts: Cholecystectomy clips are present. Spleen: There is some atherosclerotic calcification with marginal ectasia about the splenic hilum. Stomach and bowel: There is a small sliding-type hiatal hernia demonstrated with slight gastroesophageal fold thickening. There are some borderline small bowel loops for example central left upper quadrant at 3.2 cm although incompletely included for evaluation. There is colonic gas present. Intraperitoneal space: There is a similar otherwise interval appearance of the included intraperitoneal space, upper abdominal structures. Bones/joints: Osseous alignment is maintained.No interval displaced fracture or dislocation is appreciated. There is some thoracic spondylosis overall present. There are some chronic appearing rib deformities. Soft tissues: No radiopaque foreign body or subcutaneous emphysema is appreciated. There is some slight muscular thinning or atrophic type appearance about the inferior and posterior scapula margin of the left as compared to the right. Other findings: There is some motion artifact present. No other significant interval changes are appreciated. CT/CT angio chest PE protcl [id number] IMPRESSION: 1. The study is limited for pulmonary thromboembolism evaluation with aortic predominant bolus. Overall no large central saddle type embolus is currently appreciated. 2. No interval thoracic aortic saccular aneurysmal dilatation or intimal irregularity is appreciated. 3. There is some patchy subsegmental atelectasis versus early inflammation of the lung bases bilaterally. No interval lobar consolidation or cardiac decompensation is appreciated.
--- NOTE | 2022-12-05 07:00 | PC.NURSE ---
PT PLACED ON CONTINUOUS NIBP, SPO2, AND CM
[2022-12-05] MEDS: ketorolac 30 mg/mL INJ 15 MG IVP (08:08)
[2022-12-05] MEDS: lidocaine 2% viscous 15 ML, aluminum-mag hydrox-simethicon 30 ML, sucralfate oral liq 1 GM PO (08:09)
[2022-12-05 08:29] LABS: Troponin 5 2HR Delta 0 ABS# (0-10)
[2022-12-05] MEDS: amoxicillin-clav 875-125 mg Tablet 1 TAB PO (09:49)
[2022-12-05] MEDS: fentaNYL 50 mcg/mL INJ 2mL IVP (09:49)
--- NOTE | 2022-12-05 10:21 | PC.NURSE ---
PT DC'D TO WAITING ROOM FOR MEDICAID RIDE.
--- NOTE | 2022-12-05 10:36 | PC.NURSE ---
O2 94% RR - 16 PT IN WR
== END 2022-12-05 10:36 | disposition home or self-care (01) ==
PROVIDERS: Emergency Medicine; Emergency Provider Emergency Medicine; PCP Family Medicine
DX: R07.9 Chest pain, unspecified (principal); J18.9 Pneumonia, unspecified organism; Z79.82 Long term (current) use of aspirin; Z77.22 Contact with and (suspected) exposure to environmental tobacco smoke (acute) (chronic)
CPT/HCPCS: 36415; 71045; 71275; 80053; 83880; 84484; 85025; 85378; 85610; 85730; 93005; 96374; 96375; 99285; J1885; J3010; Q9967

== ENCOUNTER → 2022-12-21 09:41 | Outpatient (BNVA) | payer MEDICARE, MEDICAID, SELFPAY | PROVIDERS: PCP Family Medicine; Visit Provider Internal Medicine Cardiovascular Disease | DX: I48.91 Unspecified atrial fibrillation (principal); G47.10 Hypersomnia, unspecified; G47.33 Obstructive sleep apnea (adult) (pediatric); R94.31 Abnormal electrocardiogram [ECG] [EKG]; Z86.79 Personal history of other diseases of the circulatory system | CPT/HCPCS: 99214 ==

== ENCOUNTER 2023-02-15 06:00 | Outpatient (RCR) | payer MEDICARE, MEDICAID, SELFPAY | END 2023-02-18 23:59 | disposition home or self-care (01) | LOC: GPT 06:00 | PROVIDERS: Visit Provider Family Medicine | DX: M54.59 Other low back pain (principal); R26.2 Difficulty in walking, not elsewhere classified; R53.1 Weakness | CPT/HCPCS: 97110; 97140; 97162 ==

== ENCOUNTER 2023-02-23 06:00 | Outpatient (RCR) | payer MEDICARE, MEDICAID, SELFPAY | END 2023-03-20 23:59 | disposition home or self-care (01) | LOC: GPT 06:00 | PROVIDERS: Visit Provider Family Medicine | DX: M54.18 Radiculopathy, sacral and sacrococcygeal region (principal) | CPT/HCPCS: 97110; 97112; 97140 ==

== ENCOUNTER 2023-07-29 10:57 | Outpatient (RCR) | payer MEDICARE, MEDICAID, SELFPAY | END 2023-08-19 23:59 | disposition home or self-care (01) | LOC: SPT 10:57 | PROVIDERS: PCP Otolaryngology; Visit Provider Otolaryngology | DX: R42 Dizziness and giddiness (principal) | CPT/HCPCS: 95992; 97112; 97161 ==

== ENCOUNTER 2023-08-18 14:42 | Outpatient (CLI) | payer MEDICARE, MEDICAID, SELFPAY ==
--- NOTE | 2023-08-18 15:06 | XR_ITS ---
WS: [id number] SCREENING DEXA SCAN [employer] CLINICAL INFORMATION: POST MENOPAUSAL COMPARISON: None. FINDINGS: The L1-L4 bone mineral density measures 1.364 g/cm2. This corresponds to a T score score of 1.5 and Z score of 2.4. Left femoral neck bone mineral density measures 0.816 g/cm2. This corresponds to a T score of -1.5 an d Z score of -0.6. Right femoral neck bone mineral density measures 0.790 g/cm2. This corresponds to a T score -1.7of an d Z score of -0.8. Mean femoral neck bone mineral density measures 0.803 g/cm2. This corresponds to a T score of -1.6 an d Z score of -0.7. IMPRESSION: Normal bone mineralization lumbar spine. Osteopenia femoral necks. Patient's FRAX calculated 10 year probability for major osteoporotic fracture is 14.3% and osteoporot ic hip fracture is 1.7%.
== END 2023-08-18 14:43 | disposition home or self-care (01) ==
PROVIDERS: PCP Otolaryngology; Visit Provider Nurse Practitioner
DX: Z78.0 Asymptomatic menopausal state (principal); M85.88 Other specified disorders of bone density and structure, other site
CPT/HCPCS: 77080

== ENCOUNTER 2023-09-09 02:41 | Emergency (ER) | payer MEDICARE, MEDICAID, SELFPAY ==
[2023-09-09 02:42] VITALS: BP 150/68; PULSE 88; RESP 16; TEMP 36.9; O2SAT 97; BMI 31.1
--- NOTE | 2023-09-09 02:45 | ECG_ITS ---
[facility] Test Date: 2023-09-09 Pat Name: Augustina Ugarte Department: Room: Gender: Female Rehabilitation Assistant: : 1950 Requested By: Alireza Pratt Order Number: [id number] Yolanda MD: Demar Szymanski M.D. Measurements Intervals [place] Rate: 78 P: 53 SD: 175 QRS: -11 QRSD: 100 T: 29 QT: 363 QTc: 414 Interpretive Statements SINUS RHYTHM LOW QRS VOLTAGE IN PRECORDIAL LEADS [QRS DEFLECTION < 1.0 mV IN CHEST LEADS] POSSIBLE RIGHT VENTRICULAR CONDUCTION DELAY [RSR (QR) IN V1/V2] POSSIBLE ANTERIOR MYOCARDIAL INFARCTION , PROBABLY OLD [30 ms Q WAVE IN V3/V4, OR R < 0.2 mV IN V4] Compared to ECG 12/05/2022 05:42:31 No significant changes Electronically Signed On 09-09-2023 22:03:51 CDT by Demar Szymanski M.D. [id number]
--- NOTE | 2023-09-09 02:54 | XRR_ITS ---
PROCEDURE INFORMATION: Exam: XR Chest Exam date and time: 09/09/2023 2:59 AM Age: 72 years old Clinical indication: Chest wall pain; Additional info: Cxp TECHNIQUE: Imaging protocol: Radiologic exam of the chest. Views: 1 view. COMPARISON: CT angio chest PE protcl [id number] 12/05/2022 7:11 AM FINDINGS: Lungs: Similar-appearing bibasilar streaky opacities, likely atelectasis and/or scarring. Pleural spaces: Unremarkable. No pleural effusion. No pneumothorax. Heart/Mediastinum: Unremarkable. No cardiomegaly. Bones/joints: Diffuse degenerative changes of the visualized osseous structures. Partially evaluated postsurgical changes of the left humeral head. XR/XR chest 1V portable [id number] IMPRESSION: Bibasilar atelectasis and/or scarring. No acute cardiopulmonary findings.
[2023-09-09 03:00] LABS: Basophils # 0.1 10^3/uL (0.0-0.1); Basophils % 0.5 %; Eosinophils # 0.3 10^3/uL (0.0-0.8); Eosinophils % 2.1 %; Hematocrit 36.4 % (36-47); Lymphocytes # 2.2 10^3/uL (0.8-4.8); Lymphocytes % 16.1 %; Mean Corpuscular HGB Conc 32.4 g/dL (30-55); Mean Corpuscular Hemoglobin 30.5 pg (27-33); Mean Corpuscular Volume 94.1 fl (85-98); Mean Platelet Volume 10.6 fL (7.4-10.4); Monocytes # 1.1 10^3/uL (0.2-0.9); Monocytes % 8.3 %; Neutrophils % 72.6 %; Nucleated Red Blood Cells % 0 %; Platelet Count 192 10^3/cmm (157-399); Red Blood Count 3.87 10^6/uL (3.85-5.65); Red Cell Distribution Width 12.6 % (12.1-15.1); White Blood Count 13.65 10^3/uL (3.29-11.43)
[2023-09-09 03:06] VITALS: BP 151/68; O2SAT 96
[2023-09-09 03:06] LABS: INR 0.97 (0.8-1.2)
[2023-09-09 03:23] LABS: Troponin(5th) Baseline < 6 ng/L (0-10)
[2023-09-09 03:30] LABS: Alanine Aminotransferase 10 U/L (0-33); Albumin Level 3.9 g/dL (3.5-5.2); Alkaline Phosphatase 77 U/L (35-105); Anion Gap 13.5 (5-19); Aspartate Amino Transferase 12 U/L (0-32); Blood Urea Nitrogen 19 mg/dL (8-23); Calcium 8.9 mg/dL (8.5-10.5); Carbon Dioxide 27 mmol/L (22-29); Chloride 102 mmol/L (98-107); Creatinine Clr Calc Pharmacy 72.9259; Globulin 2.6 g/dL (1.3-4.6); Glomerular Filtration Rate 98.8 mL/min (90-130); Glucose 179 mg/dL (65-115); NT Pro B Type Natriuretic Pept 230 pg/mL (0-125); Osmolality Calculated 295 mOsm/kg (285-295); Potassium 3.5 mmol/L (3.5-5.1); Sodium 139 mmol/L (136-145); Total Bilirubin 0.3 mg/dL (0.15-1.2); Total Protein 6.5 g/dL (6.6-8.7)
[2023-09-09] MEDS: cefTRIAXone 2,000 MG in sodium chloride 0.9% (plus) 50 ML 100 MG IV (04:16)
--- NOTE | 2023-09-09 04:17 | ED_ITS ---
HPI - Chest Pain 2 General: Chief Complaint: Chest Pain Stated Complaint: CP History of Present Illness: 72-year-old female presents emergency de partment with complaints of chest pain that started approximately 1600 yesterday. She states she is currently rating her pain a 10 out of 10. EMS personnel have provided her cardiac dose aspirin, 4 sublingual administrations of 0.4 mg nitroglycerin with minimal relief. The patient states that the pain seems to be across her entire chest and states that it radiates to her neck and sides of her chest. She states it is worse when she coughs or takes a deep breath in. She does endorse a nonproductive cough intermittently for the previous 1 week. She denies shortness of breath, diaphoresis, nausea or vomiting. She states she does have a history of recurrent pneumonia and feels that this is very similar in presentation to her previous episodes of pneumonia. She states that she has felt increased fatigue and malaise over the previous 1 week. Associated symptoms: Deny dyspnea or palpitations Review of Systems 2 General: Reports: 10 or more systems reviewed and unremarkable except in HPI and below Card: Reports: chest pain; Denies: palpitations or irregular heart rhythm Resp: Reports: non-productive cough and pain on inspiration; Denies: dyspnea PFSH ED 2 PFSH: Medical History (Updated 09/09/23 @ 04:24 by Alireza Pratt MD) Depression Nocturnal hypoxia Family History Sister Cancer breast, leukemia Father CAD (coronary artery disease) Diabetes Mother Diabetes CHF (congestive heart failure) Social History Smoking and tobacco/nicotine status: never used tobacco/nicotine Second hand smoke exposure: Yes Alcohol intake: never Substance/Drug Use: never Caregiver/support person: No Lives independently: Yes Household members: none Marital status: Single service: No Current occupational status: retired and disabled Do you think of yourself as: Straight/Heterosexual Current gender identity: Female Physical Exam 2 Narrative: EXAM NARRATIVE: Constitutional: the patient appears well nourished and of normal development. Vital signs as documented. No acute distress at present. Alert and oriented-to person, place, time and situation. Head, eyes, ears, nose, mouth, throat: Normocephalic, atraumatic. Pupils-equal, round, reactive to light. No scleral icterus. Normal-appearing external ears. Normal appearing nasal turbinates, no drainage. No obvious oral lesions, posterior oropharynx without erythema or exudates. Neck: Supple, trachea is midline, no lymphadenopathy, no jugular venous distension, thyromegaly, or carotid bruits. Carotid upstrokes are brisk bilaterally. Lungs: Faint crackles in the bases right greater than left, no wheezing at present. Symmetrical rise and fall of chest, no obvious signs of increased work of breathing at present. Cardiac: Regular rate and rhythm, positive S1, S2. No murmurs, rubs or gallops that I can appreciate Abdomen: Soft, non-tender to palpation, normal active bowel sounds to all quadrants. No palpable masses, no organomegaly and abdominal bruits. Extremities: 2+ pulses in the upper extremities that are equal bilaterally, 2+ pulses in the lower extremities that are equal bilaterally. Non-edematous. Moves all extremities well, sensation to all extremities are noted. Skin: Warm, dry, intact. Course 2 Vital Signs: Vital signs: Vital Signs Temperature 98.5 F 09/09/23 02:42 Pulse Rate 80 09/09/23 04:30 Respiratory Rate 16 09/09/23 04:30 Blood Pressure 125/59 09/09/23 04:30 Pulse Oximetry 94 09/09/23 04:30 Oxygen Delivery Me thod Room Air 09/09/23 04:30 MDM - Chest Pain Medical Decision Making The patient's complaints of 10 out of 10 chest pain are not consistent with her physical presentation or her clinical exam findings. Patient is talking and conversing and does not appear to be in any acute distress at present. CBC demonstrates elevated white count at 13.6 and her chest x-ray does demonstrate bibasilar atelectasis/pneumonia. Patient's cardiac enzymes are negative, her CMP is essentially unremarkable, her BNP is 230. Given the patient's presentation as well as her radiographic and elevated white blood cell count I will provide her IV antibiotics and a written prescription for antibiotics given concern for her reoccurring pneumonia. She is maintaining her oxygen saturation at 96 to 97% on room air. I will discharge the patient home with recommended follow-up with her primary care provider. Medical Records I reviewed the patient's medical records. Lab Data I reviewed the patient's lab results. 09/09/23 02:40 09/09/23 02:40 Radiology Impressions Chest X-Ray 09/09/23 02:54 IMPRESSION: Bibasilar atelectasis and/or scarring. No acute cardiopulmonary findings. Laboratory Results WBC 13.65 10^3/uL (3.29-11.43) H 09/09/23 02:40 RBC 3.87 10^6/uL (3.85-5.65) 09/09/23 02:40 Hgb 11.80 g/dL (11.27-16.99) 09/09/23 02:40 Hct 36.4 % (36-47) 09/09/23 02:40 MCV 94.1 fl (85-98) 09/09/23 02:40 MCH 30.5 pg (27-33) 09/09/23 02:40 MCHC 32.4 g/dL (30-55) 09/09/23 02:40 RDW 12.6 % (12.1-15.1) 09/09/23 02:40 Plt Count 192 10^3/cmm (157-399) 09/09/23 02:40 MPV 10.6 fL (7.4-10.4) H 09/09/23 02:40 Neut % (Auto) 72.6 % 09/09/23 02:40 Lymph % (Auto) 16.1 % 09/09/23 02:40 [place] % (Auto) 8.3 % 09/09/23 02:40 Eos % (Auto) 2.1 % 09/09/23 02:40 Baso % (Auto) 0.5 % 09/09/23 02:40 Neut # (Auto) 9.90 10^3/uL (1.8-7.7) H 09/09/23 02:40 Lymph # (Auto) 2.2 10^3/uL (0.8-4.8) 09/09/23 02:40 [place] # (Auto) 1.1 10^3/uL (0.2-0.9) H 09/09/23 02:40 Eos # (Auto) 0.3 10^3/uL (0.0-0.8) 09/09/23 02:40 Baso # (Auto) 0.1 10^3/uL (0.0-0.1) 09/09/23 02:40 Nucleated RBC % (auto) 0 % 09/09/23 02:40 Nucleated RBCs # 0.0 /100WBC 09/09/23 02:40 PT 13.20 SECONDS (12.1-14.9) 09/09/23 02:40 INR 0.97 (0.8-1.2) 09/09/23 02:40 Sodium 139 mmol/L (136-145) 09/09/23 02:40 Potassium 3.5 mmol/L (3.5-5.1) 09/09/23 02:40 Chloride 102 mmol/L (98-107) 09/09/23 02:40 Carbon Dioxide 27 mmol/L (22-29) 09/09/23 02:40 Anion Gap 13.5 (5-19) 09/09/23 02:40 BUN 19 mg/dL (8-23) 09/09/23 02:40 Creatinine 0.6 mg/dL (0.5-0.9) 09/09/23 02:40 GFR Calculation 98.8 mL/min (90-130) 09/09/23 02:40 Glucose 179 mg/dL (65-115) H 09/09/23 02:40 Calculated Osmolality 295 mOsm/kg (285-295) 09/09/23 02:40 Calcium 8.9 mg/dL (8.5-10.5) 09/09/23 02:40 Total Bilirubin 0.3 mg/dL (0.15-1.2) 09/09/23 02:40 AST 12 U/L (0-32) 09/09/23 02:40 ALT 10 U/L (0-33) 09/09/23 02:40 Alkaline Phosphatase 77 U/L (35-105) 09/09/23 02:40 Troponin T Baseline < 6 ng/L (0-10) 09/09/23 02:40 NT-Pro-B Natriuret Pep 230 pg/mL (0-125) H 09/09/23 02:40 Total Protein 6.5 g/dL (6.6-8.7) L 09/09/23 02:40 Albumin 3.9 g/dL (3.5-5.2) 09/09/23 02:40 Globulin 2.6 g/dL (1.3-4.6) 09/09/23 02:40 All radiology interpretation(s) finalized by discharge EKG Data EKG 1: Interpretation: Twelve-lead EKG obtained at 245 reviewed at 245 demonstrates sinus rhythm, ventricular rate 78 bpm, PA interval 175, QRS duration 100, QT 363 QTc [address] elevation or depression to demonstrate acute ischemia or infarction at present. Discharge Plan Discharge Patient Disposition: Home Clinical Impression: Atypical chest pain Pneumonia Qualifiers: Pneumonia type: due to unspecified organism Laterality: bilateral Lung location: lower lobe of lung Qualified Code(s): J18.9 - Pneumonia, unspecified organism Condition: Stable Prescriptions: New levofloxacin 750 mg tablet 750 mg PO DAILY 7 Days Qty: 7 0RF No Action cholecalciferol (vitamin D3) 50 mcg (2,000 unit) capsule 50 mcg PO DAILY mecobalamin (vitamin B12) 1,000 mcg tablet,chewable 2,000 mcg PO DAILY cyanocobalamin (vitamin B-12) 1,000 mcg/mL solution 1,000 mcg IM .monthly aspirin 81 mg Tablet,Delayed Release (Dr/Ec) 81 mg PO DAILY calcium carb-mag ox-zinc gluc 333-133-5 mg Tablet 1 tab PO DAILY Discharge Orders: Discharge ED (Routine); Ordered 09/09/23 Ordered By: Alireza Pratt Discharge Diet: Usual diet Discharge Activity: Resume usual activity Patient Instructions: Opioid Safety, Pain Management Activity Restrictions/Additional Instructions: Activity Restrictions/Additional Instructions: Thank you for choosing [facility] for your healthcare needs today. Please realize that you were seen in the Emergency Department and that we are providing you with an emergency medical screening exam and this may not be a complete and all inclusive of all the testing and or medical work-up that you may need to determine your ailment or severity of your illness. It is very important that you follow-up as instructed with your Primary care provider or Specialist for additional evaluation and to discuss your medical treatment plan. Coding Level of Care Code ED Shake Maker for Maame Macario
[2023-09-09 04:30] VITALS: BP 125/59; PULSE 80; RESP 16; O2SAT 94
[2023-09-09 05:42] LABS: Troponin 5 2HR Delta 0.00001 ABS# (0-10)
[2023-09-09] MEDS: ketorolac 30 mg/mL INJ IVP (05:52)
[2023-09-09] MEDS: acetaminophen 500 mg Tablet 1000 MG PO (05:56)
[2023-09-09 06:00] VITALS: BP 125/59; O2SAT 95
[2023-09-09 07:37] VITALS: BP 125/59; O2SAT 95
== END 2023-09-09 07:40 | disposition home or self-care (01) ==
PROVIDERS: Emergency Provider Internal Medicine
DX: R07.89 Other chest pain (principal); J18.9 Pneumonia, unspecified organism; Z79.82 Long term (current) use of aspirin
CPT/HCPCS: 71045; 80053; 83880; 84484; 85025; 85610; 93005; 96365; 96366; 96375; 99285; J0696; J1885

== ENCOUNTER 2023-10-20 09:30 | Outpatient (CLI) | payer MEDICARE, MEDICAID, SELFPAY ==
--- NOTE | 2023-10-20 09:40 | XR_ITS ---
WS: [id number] XR chest 2V* [id number] REASON FOR EXAM: PNEUMONIA FINDINGS: The chest is stable compared to 09/09/2023. Mild tortuosity of the thoracic aorta. The heart size is at the upper limits of normal. There is elevation of the right hemidiaphragm. No acute pulmonary parenchymal or pleural abnormality is identified. XR/XR chest 2V* [id number] IMPRESSION: Stable chest with no acute abnormality identified.
== END 2023-10-20 09:31 | disposition home or self-care (01) ==
LOC: RAD 09:33
PROVIDERS: Visit Provider Nurse Practitioner
DX: J18.9 Pneumonia, unspecified organism (principal)
CPT/HCPCS: 71046

== ENCOUNTER 2023-10-24 21:19 | Emergency (ER) | payer MEDICARE, MEDICAID, SELFPAY ==
--- NOTE | 2023-10-24 21:25 | ECG_ITS ---
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 Measurements Intervals [place] Rate: 95 P: 59 IN: 167 QRS: 9 QRSD: 82 T: 34 QT: 334 QTc: 422 Interpretive Statements SINUS RHYTHM LOW QRS VOLTAGE IN PRECORDIAL LEADS [QRS DEFLECTION < 1.0 mV IN CHEST LEADS] MINIMAL ST DEPRESSION [0.025+ mV ST DEPRESSION] Compared to ECG 09/09/2023 02:45:17 ST (T wave) deviation now present Myocardial infarct finding no longer present Electronically Signed On 10-25-2023 10:55:40 CDT by Christopher Howard M.D. [email or web address]
[2023-10-24 21:36] VITALS: BP 135/71; PULSE 96; RESP 16; TEMP 36.8; O2SAT 96; BMI 32.1
--- NOTE | 2023-10-24 21:51 | XRR_ITS ---
PROCEDURE INFORMATION: Exam: XR Chest Exam date and time: 10/24/2023 11:00 PM Age: 72 years old Clinical indication: Chest pressure; Patient HX: C/O chest pain TECHNIQUE: Imaging protocol: Radiologic exam of the chest. Views: 1 view. COMPARISON: CR XR chest 2V* [id number] 10/20/2023 9:44 AM FINDINGS: Lungs: The lung bases are suboptimally assessed due to technique however the upper lungs are clear of focal consolidation. Pleural spaces: Unremarkable. No pleural effusion. No pneumothorax. Heart/Mediastinum: Cardiac silhouette appears somewhat magnified by technique but is probably normal in size. No obvious vascular congestion. Bones/joints: No acute osseous findings. Other findings: Single view was submitted. XR/XR chest 1V portable [id number] IMPRESSION: No obvious acute consolidation. Suboptimal lung base assessment. Followup including lateral view may be obtained if clinically indicated.
[2023-10-24 23:21] LABS: Basophils # 0.1 10^3/uL (0.0-0.1); Basophils % 0.6 %; Eosinophils # 0.2 10^3/uL (0.0-0.8); Eosinophils % 1.4 %; Hematocrit 42.6 % (36-47); Lymphocytes # 2.2 10^3/uL (0.8-4.8); Lymphocytes % 15.4 %; Mean Corpuscular HGB Conc 33.1 g/dL (30-55); Mean Corpuscular Hemoglobin 30.9 pg (27-33); Mean Corpuscular Volume 93.4 fl (85-98); Mean Platelet Volume 10.5 fL (7.4-10.4); Monocytes # 0.9 10^3/uL (0.2-0.9); Monocytes % 6.7 %; Neutrophils # 10.52 10^3/uL (1.8-7.7); Neutrophils % 75.3 %; Nucleated Red Blood Cells % 0 %; Platelet Count 242 10^3/cmm (157-399); Red Blood Count 4.56 10^6/uL (3.85-5.65); Red Cell Distribution Width 13.4 % (12.1-15.1); White Blood Count 13.97 10^3/uL (3.29-11.43)
[2023-10-24 23:22] VITALS: BP 157/63; PULSE 77; RESP 13; O2SAT 100
[2023-10-24 23:30] VITALS: BP 157/63; PULSE 74; RESP 14
[2023-10-24 23:42] LABS: Troponin(5th) Baseline < 6 ng/L (0-10)
[2023-10-24 23:45] VITALS: BP 133/70; PULSE 85; RESP 20; O2SAT 100
[2023-10-24 23:47] LABS: Alanine Aminotransferase 9 U/L (0-33); Albumin Level 4.4 g/dL (3.5-5.2); Alkaline Phosphatase 90 U/L (35-105); Anion Gap 17.1 (5-19); Aspartate Amino Transferase 13 U/L (0-32); Blood Urea Nitrogen 20 mg/dL (8-23); Calcium 9.8 mg/dL (8.5-10.5); Carbon Dioxide 24 mmol/L (22-29); Chloride 103 mmol/L (98-107); Creatinine Clr Calc Pharmacy 71.5004; Glomerular Filtration Rate 98.8 mL/min (90-130); Glucose 134 mg/dL (65-115); Lipase 24 U/L (13-60); NT Pro B Type Natriuretic Pept 137 pg/mL (0-125); Osmolality Calculated 295 mOsm/kg (285-295); Potassium 4.1 mmol/L (3.5-5.1); Sodium 140 mmol/L (136-145); Total Bilirubin 0.5 mg/dL (0.15-1.2); Total Protein 7.4 g/dL (6.6-8.7)
[2023-10-24] MEDS: ketorolac 30 mg/mL INJ 15 MG IVP (23:49)
[2023-10-25] VITALS: BP 133/70; PULSE 75; RESP 16
[2023-10-25 00:15] VITALS: BP 123/66; PULSE 80; RESP 30; O2SAT 95
[2023-10-25 00:30] VITALS: BP 123/66; PULSE 76; RESP 16
[2023-10-25 00:45] VITALS: BP 122/69; PULSE 82; RESP 33; O2SAT 94
--- NOTE | 2023-10-25 01:12 | W.ED.CHESTPA ---
HPI - Chest Pain General: Chief Complaint: Chest Pain Stated Complaint: Chest pain/Shoulder Pain Time Seen by Provider: 10/24/23 23:04 History of Present Illness: 72-year-old female with no prior history of coronary disease. She presents with pleuritic chest discomfort. She states that it started on the left lower chest, radiated into her back and up into her left shoulder. She is mildly short of breath. She feels it more at the end of her breath. She says she has had this feeling before when she had pneumonia. Associated symptoms: Reports dyspnea and nausea; Deny abdominal pain, fever(s), palpitations or vomiting Review of Systems Const: Denies: fever(s) or chills ENMT: Denies: throat pain Card: Reports: chest pain; Denies: palpitations Resp: Reports: dyspnea and non-productive cough; Denies: productive cough GI: Reports: nausea; Denies: abdominal pain or vomiting Neuro: Reports: headache(s) [facility] ED PFSH: Medical History (Updated 10/25/23 @ 01:33 by Param Urias DO) Depression Nocturnal hypoxia Family History Sister Cancer breast, leukemia Father CAD (coronary artery disease) Diabetes Mother Diabetes CHF (congestive heart failure) Social History Smoking and tobacco/nicotine status: never used tobacco/nicotine Second hand smoke exposure: Yes Alcohol intake: never Substance/Drug Use: never Caregiver/support person: No Lives independently: Yes Household members: none Marital status: Single service: No Current occupational status: retired and disabled Do you think of yourself as: Straight/Heterosexual Current gender identity: Female Physical Exam Const: COMMON NORMALS: no acute distress GENERAL APPEARANCE: cooperative; not ill appearing and not frail appearing HENMT: COMMON NORMALS: normocephalic, atraumatic and Normal external nose present HEAD & SCALP: normocephalic and atraumatic FACE & SINUS: normal facial exam and face symmetric NOSE: Normal external nose present Eye: COMMON NORMALS: Equal, round and reactive pupils present and EOMs intact bilaterally PUPIL: Yes Equal, round and reactive pupils present Neck/C-Spine: GENERAL: Yes trachea midline Chest: CHEST: Yes Symmetrical chest wall rise and Yes tenderness (Anterior chest wall) Resp: COMMON NORMALS: normal respiratory effort, No retractions, No use of accessory muscles and clear to auscultation bilaterally AUSCULTATION: clear to auscultation bilaterally Cardio: COMMON NORMALS: regular rate and regular rhythm RATE: regular rate RHYTHM: regular rhythm GI: COMMON NORMALS: Normal to inspection, nondistended, normoactive bowel sounds present Extremity: COMMON NORMALS: no pedal edema Neuro: [place] COMA SCALE: document GCS findings [place] coma scale eye opening: Spontaneous [place] coma scale verbal response: Orientated [place] coma scale motor response: Obey commands [place] coma scale total score: 15 SENSORY EXAM: Yes extremities (intact) Psych: COMMON NORMALS: speech normal SPEECH: Yes normal speech Skin: COMMON NORMALS: no rashes or lesions noted GENERAL SKIN EXAM: no rashes or lesions noted Course Vital Signs: Vital signs: Vital Signs Temperature 98.3 F 10/24/23 21:36 Pulse Rate 81 10/25/23 01:52 Respiratory Rate 18 10/25/23 01:52 Blood Pressure 116/55 10/25/23 01:52 Pulse Oximetry 96 10/25/23 01:52 Oxygen Delivery Me thod Room Air 10/24/23 21:36 MDM - Chest Pain Medical Decision Making EKG shows no acute ST wave changes. White blood cell count is 14. Chest x-ray shows some suboptimal lung base assessment, but the left lower lobe gutter appears to be somewhat opacified potentially with consolidation. Her troponin is 6 with a delta of 0 at 2 hours. She will be treated Lab Data 10/24/23 23:09 10/24/23 23:09 Radiology Impressions Chest X-Ray 10/24/23 21:51 IMPRESSION: No obvious acute consolidation. Suboptimal lung base assessment. Followup including lateral view may be obtained if clinically indicated. Laboratory Results WBC 13.97 10^3/uL (3.29-11.43) H 10/24/23 23:09 RBC 4.56 10^6/uL (3.85-5.65) 10/24/23 23:09 Hgb 14.10 g/dL (11.27-16.99) 10/24/23 23:09 Hct 42.6 % (36-47) 10/24/23 23:09 MCV 93.4 fl (85-98) 10/24/23 23:09 MCH 30.9 pg (27-33) 10/24/23 23:09 MCHC 33.1 g/dL (30-55) 10/24/23 23:09 RDW 13.4 % (12.1-15.1) 10/24/23 23:09 Plt Count 242 10^3/cmm (157-399) 10/24/23 23:09 MPV 10.5 fL (7.4-10.4) H 10/24/23 23:09 Neut % (Auto) 75.3 % 10/24/23 23:09 Lymph % (Auto) 15.4 % 10/24/23 23:09 [place] % (Auto) 6.7 % 10/24/23 23:09 Eos % (Auto) 1.4 % 10/24/23 23:09 Baso % (Auto) 0.6 % 10/24/23 23:09 Neut # (Auto) 10.52 10^3/uL (1.8-7.7) H 10/24/23 23:09 Lymph # (Auto) 2.2 10^3/uL (0.8-4.8) 10/24/23 23:09 [place] # (Auto) 0.9 10^3/uL (0.2-0.9) 10/24/23 23:09 Eos # (Auto) 0.2 10^3/uL (0.0-0.8) 10/24/23 23:09 Baso # (Auto) 0.1 10^3/uL (0.0-0.1) 10/24/23 23:09 Nucleated RBC % (auto) 0 % 10/24/23 23:09 Nucleated RBCs # 0.0 /100WBC 10/24/23 23:09 Sodium 140 mmol/L (136-145) 10/24/23 23:09 Potassium 4.1 mmol/L (3.5-5.1) 10/24/23 23:09 Chloride 103 mmol/L (98-107) 10/24/23 23:09 Carbon Dioxide 24 mmol/L (22-29) 10/24/23 23:09 Anion Gap 17.1 (5-19) 10/24/23 23:09 BUN 20 mg/dL (8-23) 10/24/23 23:09 Creatinine 0.6 mg/dL (0.5-0.9) 10/24/23 23:09 GFR Calculation 98.8 mL/min (90-130) 10/24/23 23:09 Glucose 134 mg/dL (65-115) H 10/24/23 23:09 Calculated Osmolality 295 mOsm/kg (285-295) 10/24/23 23:09 Calcium 9.8 mg/dL (8.5-10.5) 10/24/23 23:09 Total Bilirubin 0.5 mg/dL (0.15-1.2) 10/24/23 23:09 AST 13 U/L (0-32) 10/24/23 23:09 ALT 9 U/L (0-33) 10/24/23 23:09 Alkaline Phosphatase 90 U/L (35-105) 10/24/23 23:09 Troponin T Baseline < 6 ng/L (0-10) 10/24/23 23:09 Troponin T 120 Minute 6.00 ng/L (0-10) 10/24/23 01:04 Delta Troponin T 0 ABS# (0-10) 10/24/23 01:04 NT-Pro-B Natriuret Pep 137 pg/mL (0-125) H 10/24/23 23:09 Total Protein 7.4 g/dL (6.6-8.7) 10/24/23 23:09 Albumin 4.4 g/dL (3.5-5.2) 10/24/23 23:09 Globulin 3.0 g/dL (1.3-4.6) 10/24/23 23:09 Lipase 24 U/L (13-60) 10/24/23 23:09 All radiology interpretation(s) finalized by discharge Discharge Plan Discharge Patient Disposition: Home Clinical Impression: Atypical chest pain, Pneumonia Condition: Stable Prescriptions: New ketorolac 10 mg tablet 10 mg PO TID PRN (Reason: pain) Qty: 10 0RF levofloxacin 750 mg tablet 750 mg PO DAILY 7 Days Qty: 7 0RF No Action cholecalciferol (vitamin D3) 50 mcg (2,000 unit) capsule 50 mcg PO DAILY mecobalamin (vitamin B12) 1,000 mcg tablet,chewable 2,000 mcg PO DAILY cyanocobalamin (vitamin B-12) 1,000 mcg/mL solution 1,000 mcg IM .monthly aspirin 81 mg Tablet,Delayed Release (Dr/Ec) 81 mg PO DAILY calcium carb-mag ox-zinc gluc 333-133-5 mg Tablet 1 tab PO DAILY Discharge Orders: Discharge ED (Routine); Ordered 10/25/23 Ordered By: Param Urias Referrals: Karina Swanson MANIPULATOR OPERATOR [Primary Care Provider] - 1-3 days Patient Instructions: Chest Pain (ED), Pneumonia (ED) Activity Restrictions/Additional Instructions: Antibiotics as directed. You may use medication prescribed for pain if you wish. Watch for temperature. Return for worsening pain or shortness of breath despite treatment, inability to control temperature, vomiting liquids or medications, other concerning symptoms. Follow-up with your doctor this week. Coding Level of Care Code ED [employer] Supervisor for Maame Macario
[2023-10-25 01:48] LABS: Troponin 5 2HR Delta 0 ABS# (0-10)
--- NOTE | 2023-10-25 01:51 | PC.NURSE ---
Pt was discharged before medication crossed the mar. Per Dr Urias pt's medication was non administered. Pt will get first dose when she picks up medications from the pharmacy.
[2023-10-25 01:52] VITALS: BP 116/55; PULSE 81; RESP 18; O2SAT 96
== END 2023-10-25 01:43 | disposition home or self-care (01) ==
PROVIDERS: Nurse Practitioner Family; Emergency Provider Emergency Medicine; PCP Nurse Practitioner
DX: R07.89 Other chest pain (principal); J18.9 Pneumonia, unspecified organism; Z79.82 Long term (current) use of aspirin; Z77.22 Contact with and (suspected) exposure to environmental tobacco smoke (acute) (chronic)
CPT/HCPCS: 71045; 80053; 83690; 83880; 84484; 85025; 93005; 96374; 99285; J1885

== ENCOUNTER → 2024-02-16 09:15 | Outpatient (BNVA) | payer MEDICARE, MEDICAID, SELFPAY | PROVIDERS: PCP Nurse Practitioner; Visit Provider Internal Medicine Critical Care Medicine | DX: G47.33 Obstructive sleep apnea (adult) (pediatric) (principal); G47.10 Hypersomnia, unspecified; J98.4 Other disorders of lung; Z87.09 Personal history of other diseases of the respiratory system; Z87.898 Personal history of other specified conditions; I51.89 Other ill-defined heart diseases; E66.9 Obesity, unspecified; Z68.32 Body mass index [BMI] 32.0-32.9, adult; Z71.89 Other specified counseling | CPT/HCPCS: 99214 ==

== ENCOUNTER → 2024-02-17 11:43 | Outpatient (BNVA) | payer MEDICARE, MEDICAID, SELFPAY | PROVIDERS: PCP Nurse Practitioner; Visit Provider Nurse Practitioner Family | DX: Z20.822 Contact with and (suspected) exposure to COVID-19 (principal) | CPT/HCPCS: 87426 ==

== ENCOUNTER → 2024-05-02 11:25 | Outpatient (BNVA) | payer MEDICARE, MEDICAID, SELFPAY | PROVIDERS: PCP Nurse Practitioner; Visit Provider Nurse Practitioner | DX: M25.561 Pain in right knee (principal) | CPT/HCPCS: 73562 ==

== ENCOUNTER 2024-07-16 12:40 | Emergency (ER) | payer MEDICARE, MEDICAID, SELFPAY ==
[2024-07-16] VITALS (7 sets, daily range): BP systolic 99–125; BP diastolic 56–71; PULSE 67–117; RESP 16–24; TEMP 37.1; O2SAT 90–94; BMI 31.8
--- NOTE | 2024-07-16 12:44 | XRR_ITS ---
PROCEDURE INFORMATION: Exam: XR Chest Exam date and time: 07/16/2024 1:21 PM Age: 73 years old Clinical indication: Pain; Chest pressure; Patient HX: Chest discomfort; Pneumonia; SOB; Aflutter TECHNIQUE: Imaging protocol: Radiologic exam of the chest. Views: 1 view. COMPARISON: CR XR chest 1V portable [id number] 10/24/2023 11:00 PM FINDINGS: Tubes, catheters and devices: None. Lungs: Linear density identified within bilateral lungs. The lungs appear otherwise clear. Questionable pulmonary emphysematous changes within the lungs. Pleural spaces: No pleural effusion. No pneumothorax. Heart/Mediastinum: Mediastinum and yan appear unremarkable. Bones/joints: Diffusely decreased bone density. Moderate to severe generalized bony degenerative changes. Metallic hardware within the proximal left humerus. XR/XR chest 1V portable [id number] IMPRESSION: 1. Linear bilateral chest pulmonary atelectasis, or scarring. 2. Questionable pulmonary emphysema. 3. Degenerative and postsurgical changes are demonstrated, as described above.
--- NOTE | 2024-07-16 13:10 | ECG_ITS ---
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
[2024-07-16 13:28] LABS: Basophils # 0.1 10^3/uL (0.0-0.1); Basophils % 0.9 %; Eosinophils # 0.2 10^3/uL (0.0-0.8); Eosinophils % 2.7 %; Hematocrit 39.7 % (36-47); Lymphocytes # 2.8 10^3/uL (0.8-4.8); Lymphocytes % 32.9 %; Mean Corpuscular HGB Conc 32.2 g/dL (30-55); Mean Corpuscular Hemoglobin 30.3 pg (27-33); Mean Corpuscular Volume 93.9 fl (85-98); Mean Platelet Volume 10.2 fL (7.4-10.4); Monocytes # 0.7 10^3/uL (0.2-0.9); Monocytes % 8.2 %; Neutrophils # 4.68 10^3/uL (1.8-7.7); Neutrophils % 54.8 %; Nucleated Red Blood Cells % 0 %; Platelet Count 220 10^3/cmm (157-399); Red Blood Count 4.23 10^6/uL (3.85-5.65); Red Cell Distribution Width 12.8 % (12.1-15.1); White Blood Count 8.54 10^3/uL (3.29-11.43)
[2024-07-16 13:52] LABS: Troponin(5th) Baseline < 6 ng/L (0-10)
[2024-07-16 13:57] LABS: Alanine Aminotransferase 10 U/L (0-33); Albumin Level 4.2 g/dL (3.5-5.2); Alkaline Phosphatase 82 U/L (35-105); Aspartate Amino Transferase 13 U/L (0-32); Blood Urea Nitrogen 21 mg/dL (8-23); Calcium 10.1 mg/dL (8.5-10.5); Carbon Dioxide 26 mmol/L (22-29); Chloride 103 mmol/L (98-107); Creatinine Clr Calc Pharmacy 70.1096; Globulin 2.6 g/dL (1.3-4.6); Glucose 115 mg/dL (65-115); NT Pro B Type Natriuretic Pept 184 pg/mL (0-125); Osmolality Calculated 294 mOsm/kg (285-295); Sodium 140 mmol/L (136-145); Total Bilirubin 0.4 mg/dL (0.15-1.2); Total Protein 6.8 g/dL (6.6-8.7)
[2024-07-16 15:39] LABS: Troponin 5 2HR Delta 0.00001 ABS# (0-10)
--- NOTE | 2024-07-16 16:19 | CTR_ITS ---
PROCEDURE INFORMATION: Exam: CT Head Without Contrast Exam date and time: 07/16/2024 5:13 PM Age: 73 years old Clinical indication: Pain; Headache TECHNIQUE: Imaging protocol: Computed tomography of the head without contrast. Radiation optimization: All CT scans at this facility use at least one of these dose optimization techniques: automated exposure control; mA and/or kV adjustment per patient size (includes targeted exams where dose is matched to clinical indication); or iterative reconstruction. COMPARISON: CT head wo con* [id number] 11/01/2022 4:50 PM RADIATION DOSE METRICS: Total DLP (mGy-cm): 1076.54 FINDINGS: Brain: Mild parenchymal volume loss. Periventricular and subcortical hypodensity, nonspecific, but likely to be chronic small vessel ischemic change in a patient of this age group. No hemorrhage. No infarct. Cerebral ventricles: No ventriculomegaly. Paranasal sinuses: Visualized sinuses are unremarkable. No fluid levels. Mastoid air cells: Visualized mastoid air cells are well aerated. Bones: Unremarkable. No acute fracture. Soft tissues: Unremarkable. CT/CT head wo con* [id number] IMPRESSION: No acute intracranial abnormality.
--- NOTE | 2024-07-16 16:23 | W.ED.HA ---
HPI - Headache General: Chief Complaint: Headache Stated Complaint: chest pressure; nausea Time Seen by Provider: 07/16/24 16:05 History of Present Illness: Patient is a 73-year-old who has history of frequent headaches. She states she has tension headaches, cluster headaches and some migraines. Patient was on monthly migraine medicine about a year or 2 ago but came off of that had been doing well. She states this morning she was having a migraine type headache on the right side. She states it was right head and behind her right eye. She stated she felt it down to her ear. Patient went to the store to get something for breakfast. She states her eyes kind of across side and then she kind of felt like her heart was fluttering. She called EMS. EMS stated that on their EKG they thought there might have been a little flutter or something. By the time she got here she was feeling better from that standpoint. Headache still there but now kind of full frontal behind both eyes. She wonders if it could be sinus related even though she has not really been feeling sick but states she feels a little stuffed up. No fever, no neck pain, no neurologic deficits. Patient having no chest pain. Related Data Home Medications Medication Instructions Recorded Confirmed cholecalciferol (vitamin D3) 50 50 mcg PO QAM 05/08/20 07/16/24 mcg (2,000 unit) capsule mecobalamin (vitamin B12) 1,000 2,000 mcg PO QAM 05/08/20 07/16/24 mcg chewable tablet aspirin 81 mg tablet,delayed 81 mg PO QAM 01/08/22 07/16/24 release calcium 333 mg 1 tab PO QAM 01/08/22 07/16/24 (carbonate)-magnesium 133 mg (oxide)-zinc 5 mg tablet levocarnitine 500 mg tablet 500 mg PO BID 02/16/24 07/16/24 (L-Carnitine) ascorbic acid (vitamin C) 500 mg 250 mg PO QPM 07/16/24 07/16/24 tablet (Vitamin C) bupropion HCl 75 mg tablet 75 mg PO QAM 07/16/24 07/16/24 Allergies Allergy/AdvReac Type Severity Reaction Status Date / Time acetaminophen Allergy Unknown Verified 07/16/24 12:58 [From Darvocet-N] guaifenesin [From Mucinex D] Allergy hives Verified 07/16/24 12:58 meperidine [From Demerol] Allergy Unknown Verified 07/16/24 12:58 morphine Allergy code blue Verified 07/16/24 12:58 oxycodone [From Percocet] Allergy Unknown Verified 07/16/24 12:58 propoxyphene Allergy Unknown Verified 07/16/24 12:58 [From Darvocet-N] pseudoephedrine Allergy hives Verified 07/16/24 12:58 [From Mucinex D] metoprolol AdvReac Severe fatigue Verified 07/16/24 12:58 narcotics Allergy Unknown Uncoded 02/16/24 09:33 PFSH ED PFSH: Medical History Depression Nocturnal hypoxia Family History Sister Cancer breast, leukemia Father CAD (coronary artery disease) Diabetes Mother Diabetes Congestive heart failure (CHF) Social History Smoking and tobacco/nicotine status: never used tobacco/nicotine Second hand smoke exposure: Yes Alcohol intake: never Substance/Drug Use: never Caregiver/support person: No Lives independently: Yes Household members: none Marital status: Single service: No Current occupational status: retired and disabled Do you think of yourself as: Straight/Heterosexual Current gender identity: Female Physical Exam Const: COMMON NORMALS: no acute distress, patient oriented x3 and alert GENERAL APPEARANCE: cooperative HENMT: COMMON NORMALS: normocephalic and atraumatic HEAD & SCALP: normocephalic and atraumatic Eye: COMMON NORMALS: Equal, round and reactive pupils present and EOMs intact bilaterally PUPIL: Yes Equal, round and reactive pupils present Neck/C-Spine: COMMON NORMALS: full ROM and supple Chest: COMMONS NORMALS: normal inspection of the chest Resp: COMMON NORMALS: normal respiratory effort and clear to auscultation bilaterally AUSCULTATION: clear to auscultation bilaterally Cardio: COMMON NORMALS: regular rate and regular rhythm RATE: regular rate RHYTHM: regular rhythm GI: COMMON NORMALS: Normal to inspection, nondistended, normoactive bowel sounds present and non-tender : COMMON NORMALS: Yes no CVA tenderness BLADDER/KIDNEY EXAM: Yes no CVA tenderness Back/Pelvis: COMMON NORMALS: no CVA tenderness and thoracic and lumbar spine normal to inspection Extremity: COMMON NORMALS: normal to inspection, full ROM and no pedal edema Neuro: COMMON NORMALS: patient oriented x3 and no focal motor deficits SENSORIUM/ORIENTATION: Yes alert Psych: COMMON NORMALS: cooperative Skin: COMMON NORMALS: no rashes or lesions noted GENERAL SKIN EXAM: no rashes or lesions noted Course Vital Signs: Vital signs: Vital Signs Temperature 98.7 F 07/16/24 12:58 Pulse Rate 78 07/16/24 16:35 Respiratory Rate 17 07/16/24 16:35 Blood Pressure 119/68 07/16/24 16:35 Pulse Oximetry 90 07/16/24 16:35 MDM - Headache Medical Decision Making Patient EKG shows a normal sinus rhythm. No ST elevations or depressions. Patient initial troponin was negative and 2-hour repeat remain negative. Patient chest x-ray shows no acute findings, no indications of pneumonia. Head CT clear. Patient was given IM Toradol and headache is improving. Patient states she feels better and is asking for discharge. Have advised she follow-up with her primary care physician and return if any worsening of her symptoms. Lab Data 07/16/24 13:15 07/16/24 13:15 Radiology Impressions Chest X-Ray 07/16/24 12:44 IMPRESSION: 1. Linear bilateral chest pulmonary atelectasis, or scarring. 2. Questionable pulmonary emphysema. 3. Degenerative and postsurgical changes are demonstrated, as described above. Head CT 07/16/24 16:19 IMPRESSION: No acute intracranial abnormality. Laboratory Results WBC 8.54 10^3/uL (3.29-11.43) 07/16/24 13:15 RBC 4.23 10^6/uL (3.85-5.65) 07/16/24 13:15 Hgb 12.80 g/dL (11.27-16.99) 07/16/24 13:15 Hct 39.7 % (36-47) 07/16/24 13:15 MCV 93.9 fl (85-98) 07/16/24 13:15 MCH 30.3 pg (27-33) 07/16/24 13:15 MCHC 32.2 g/dL (30-55) 07/16/24 13:15 RDW 12.8 % (12.1-15.1) 07/16/24 13:15 Plt Count 220 10^3/cmm (157-399) 07/16/24 13:15 MPV 10.2 fL (7.4-10.4) 07/16/24 13:15 Neut % (Auto) 54.8 % 07/16/24 13:15 Lymph % (Auto) 32.9 % 07/16/24 13:15 [place] % (Auto) 8.2 % 07/16/24 13:15 Eos % (Auto) 2.7 % 07/16/24 13:15 Baso % (Auto) 0.9 % 07/16/24 13:15 Neut # (Auto) 4.68 10^3/uL (1.8-7.7) 07/16/24 13:15 Lymph # (Auto) 2.8 10^3/uL (0.8-4.8) 07/16/24 13:15 [place] # (Auto) 0.7 10^3/uL (0.2-0.9) 07/16/24 13:15 Eos # (Auto) 0.2 10^3/uL (0.0-0.8) 07/16/24 13:15 Baso # (Auto) 0.1 10^3/uL (0.0-0.1) 07/16/24 13:15 Nucleated RBC % (auto) 0 % 07/16/24 13:15 Nucleated RBCs # 0.0 /100WBC 07/16/24 13:15 Sodium 140 mmol/L (136-145) 07/16/24 13:15 Potassium 4.0 mmol/L (3.5-5.1) 07/16/24 13:15 Chloride 103 mmol/L (98-107) 07/16/24 13:15 Carbon Dioxide 26 mmol/L (22-29) 07/16/24 13:15 Anion Gap 15.0 (5-19) 07/16/24 13:15 BUN 21 mg/dL (8-23) 07/16/24 13:15 Creatinine 0.8 mg/dL (0.5-0.9) 07/16/24 13:15 GFR Calculation Not Reportable 07/16/24 13:15 Glucose 115 mg/dL (65-115) 07/16/24 13:15 Calculated Osmolality 294 mOsm/kg (285-295) 07/16/24 13:15 Calcium 10.1 mg/dL (8.5-10.5) 07/16/24 13:15 Total Bilirubin 0.4 mg/dL (0.15-1.2) 07/16/24 13:15 AST 13 U/L (0-32) 07/16/24 13:15 ALT 10 U/L (0-33) 07/16/24 13:15 Alkaline Phosphatase 82 U/L (35-105) 07/16/24 13:15 Troponin T Baseline < 6 ng/L (0-10) 07/16/24 13:15 Troponin T 120 Minute 6.00 ng/L (0-10) 07/16/24 15:17 Delta Troponin T 0.60158 ABS# (0-10) 07/16/24 15:17 NT-Pro-B Natriuret Pep 184 pg/mL (0-125) H 07/16/24 13:15 Total Protein 6.8 g/dL (6.6-8.7) 07/16/24 13:15 Albumin 4.2 g/dL (3.5-5.2) 07/16/24 13:15 Globulin 2.6 g/dL (1.3-4.6) 07/16/24 13:15 All radiology interpretation(s) finalized by discharge Discharge Plan Discharge Patient Disposition: Home Clinical Impression: Headache Qualifiers: Headache type: unspecified Headache chronicity pattern: acute headache Intractability: not intractable Qualified Code(s): R51.9 - Headache, unspecified Condition: Stable Prescriptions: No Action cholecalciferol (vitamin D3) 50 mcg (2,000 unit) capsule 50 mcg PO QAM mecobalamin (vitamin B12) 1,000 mcg tablet,chewable 2,000 mcg PO QAM L-Carnitine 500 mg tablet 500 mg PO BID Rx Instructions: must administer with a meal/food aspirin 81 mg Tablet,Delayed Release (Dr/Ec) 81 mg PO QAM calcium carb-mag ox-zinc gluc 333-133-5 mg Tablet 1 tab PO QAM ascorbic acid (vitamin C) [Vitamin C] 500 mg Tablet 250 mg PO QPM bupropion HCl 75 mg tablet 75 mg PO QAM Discharge Orders: Discharge ED (Routine); Ordered 07/16/24 Ordered By: Reji Marshall Referrals: Karina Swanson FNP [Primary Care Provider] - Discharge Diet: Usual diet Discharge Activity: Resume usual activity Patient Instructions: Acute Headache (ED), Opioid Safety, Pain Management Coding Level of Care Code ED Change Management Administrator for Maame Macario
[2024-07-16] MEDS: ketorolac 30 mg/mL INJ IM (16:46)
== END 2024-07-16 18:23 | disposition home or self-care (01) ==
PROVIDERS: Emergency Medicine; Emergency Provider Emergency Medicine; PCP Nurse Practitioner
DX: R51.9 Headache, unspecified (principal); Z79.82 Long term (current) use of aspirin
CPT/HCPCS: 12345; 70450; 71045; 80053; 83880; 84484; 85025; 93005; 96372; 99285; J1885

== ENCOUNTER 2024-08-29 20:00 | Outpatient (CLI) | payer MEDICARE, MEDICAID, SELFPAY | END 2024-08-29 20:01 | disposition home or self-care (01) | LOC: SLEEP 08-30 05:04 | PROVIDERS: PCP Nurse Practitioner; Visit Provider Nurse Practitioner | DX: G47.33 Obstructive sleep apnea (adult) (pediatric) (principal) | CPT/HCPCS: 95810 ==

== ENCOUNTER 2024-10-04 04:31 | Emergency (ER) | payer MEDICARE, MEDICAID, SELFPAY ==
[2024-10-04] VITALS (10 sets, daily range): BP systolic 103–131; BP diastolic 63–75; PULSE 84–98; RESP 13–20; TEMP 36.3; O2SAT 94–99; BMI 32.4
--- NOTE | 2024-10-04 04:34 | ECG_ITS ---
[facility] Test Date: 2024-10-04 Pat Name: Augustina Ugarte Department: Room: Gender: Female Admitting Counselor: : 1950 Requested By: Brice Schneider Order Number: [id number] Yolanda MD: Demar Szymanski M.D. Measurements Intervals [place] Rate: 93 P: 111 ME: 166 QRS: 22 QRSD: 86 T: 98 QT: 348 QTc: 433 Interpretive Statements SINUS RHYTHM LOW QRS VOLTAGE IN EXTREMITY LEADS [QRS DEFLECTION < 0.5 mV IN LIMB LEADS] MODERATE ST DEPRESSION [0.05+ mV ST DEPRESSION] ABNORMAL QRS-T ANGLE [QRS-T AXIS DIFFERENCE > 60] Compared to ECG 07/16/2024 13:07:18 ST (T wave) deviation now present Electronically Signed On 10-04-2024 21:26:25 CDT by Demar Szymanski M.D. [email or web address]
--- NOTE | 2024-10-04 04:49 | XRR_ITS ---
PROCEDURE INFORMATION: Exam: XR Chest Exam date and time: 10/04/2024 5:17 AM Age: 73 years old Clinical indication: Chest pressure and chest wall pain; Additional info: Chest pain TECHNIQUE: Imaging protocol: Radiologic exam of the chest. Views: 1 view. COMPARISON: CR XR chest 1V portable [id number] 07/16/2024 1:21 PM FINDINGS: Lungs: Unremarkable. No consolidation. Pleural spaces: Unremarkable. No pleural effusion. No pneumothorax. Heart/Mediastinum: Unremarkable. No cardiomegaly. Bones/joints: Unremarkable. XR/XR chest 1V portable [id number] IMPRESSION: No acute findings.
--- NOTE | 2024-10-04 04:50 | W.ED.CHESTPA ---
Documented by User: Brice Telles MD 10/04/24 06:51 HPI - Chest Pain General: Chief Complaint: Chest Pain Stated Complaint: Chest Pain Time Seen by Provider: 10/04/24 04:41 History of Present Illness: Patient is a generally well-appearing 73-year-old female seen for cough and anterior chest pain with radiation to the right ear which has been ongoing for the last several days. Pain is worse with deep inspiration and coughing and better with rest. She has not taken anything for the pain. She has not had any other symptoms such as diaphoresis, nausea, lightheadedness, or even shortness of breath. She states that she has a chronic cough due to rhinitis which is largely unchanged. She states that in the past she has had similar symptoms which ended up being caused by pneumonia. She states that she underwent coronary catheterization several years ago and was told she had clean coronaries and that she would never have to have another coronary angiogram performed. Related Data Home Medications ?Medication ?Instructions ?Recorded ?Confirmed mecobalamin (vitamin B12) 1,000 2,000 mcg PO QAM 05/08/20 10/04/24 mcg chewable tablet aspirin 81 mg tablet,delayed 81 mg PO QAM 01/08/22 10/04/24 release ascorbic acid (vitamin C) 500 mg 250 mg PO QPM 07/16/24 10/04/24 tablet (Vitamin C) bupropion HCl 100 mg tablet 150 mg PO DAILY 10/04/24 10/04/24 Previous Rx's ?Medication ?Instructions ?Recorded ketorolac 10 mg tablet 10 mg PO Q8H 4 days #20 tabs 10/04/24 Allergies Allergy/AdvReac Type Severity Reaction Status Date / Time acetaminophen (From Allergy Unknown Verified 07/16/24 12:58 Darvocet-N) guaifenesin (From Mucinex D) Allergy hives Verified 07/16/24 12:58 meperidine (From Demerol) Allergy Unknown Verified 07/16/24 12:58 morphine Allergy code blue Verified 07/16/24 12:58 oxycodone (From Percocet) Allergy Unknown Verified 07/16/24 12:58 propoxyphene (From Allergy Unknown Verified 07/16/24 12:58 Darvocet-N) pseudoephedrine (From Allergy hives Verified 07/16/24 12:58 Mucinex D) metoprolol AdvReac Severe fatigue Verified 07/16/24 12:58 narcotics Allergy Unknown Uncoded 02/16/24 09:33 PFSH ED PFSH: Medical History Depression Nocturnal hypoxia Family History Sister Cancer breast, leukemia Father CAD (coronary artery disease) Diabetes Mother Diabetes Congestive heart failure (CHF) Social History Smoking and tobacco/nicotine status: never used tobacco/nicotine Second hand smoke exposure: Yes Alcohol intake: never Substance/Drug Use: never Caregiver/support person: No Lives independently: Yes Household members: none Marital status: Single service: No Current occupational status: retired and disabled Do you think of yourself as: Straight/Heterosexual Current gender identity: Female Physical Exam Const: COMMON NORMALS: no acute distress, patient oriented x3 and alert HENMT: COMMON NORMALS: normocephalic and atraumatic HEAD & SCALP: normocephalic and atraumatic Eye: COMMON NORMALS: Equal, round and reactive pupils present, EOMs intact bilaterally and no scleral icterus PUPIL: Yes Equal, round and reactive pupils present Chest: OTHER: Chest pain is reproducible with both palpation of the anterior chest wall and deep inspiration Resp: COMMON NORMALS: normal respiratory effort and No retractions Cardio: COMMON NORMALS: regular rate, regular rhythm and No murmurs present (Cardio) RATE: regular rate RHYTHM: regular rhythm GI: COMMON NORMALS: Normal to inspection, nondistended, normoactive bowel sounds present, Soft to palpation and non-tender PALPATION: Yes Soft to palpation Neuro: COMMON NORMALS: patient oriented x3 SENSORIUM/ORIENTATION: Yes alert Skin: COMMON NORMALS: no rashes or lesions noted GENERAL SKIN EXAM: no rashes or lesions noted Course Vital Signs: Vital signs: Vital Signs Temperature 97.4 F L 10/04/24 04:35 Pulse Rate 96 10/04/24 08:53 Respiratory Rate 16 10/04/24 08:53 Blood Pressure 120/64 10/04/24 08:53 Pulse Oximetry 99 10/04/24 08:53 Oxygen Delivery Me thod Room Air 10/04/24 04:38 MDM - Chest Pain Medical Decision Making In summary, patient is a generally well-appearing 73-year-old female from home seen for pleuritic chest pain which is better with Toradol. Vital signs are stable. White blood cell count is somewhat elevated but x-ray does not show evidence of pneumonia. She may be suffering from a viral process but has no fever. She has no respiratory distress. Initial troponin is negative and EKG is reassuring. We discussed that if her second troponin is negative she will be discharged home with a prescription for oral Toradol which has not helped her pain significantly. Pertinent details of case were shared with the [facility] emergency physician who will facilitate ultimate disposition once troponin has resulted. Lab Data 10/04/24 04:34 10/04/24 04:34 Radiology Impressions Chest X-Ray 10/04/24 04:49 IMPRESSION: No acute findings. Laboratory Results WBC 15.52 10^3/uL (3.29-11.43) H 10/04/24 04:34 RBC 4.43 10^6/uL (3.85-5.65) 10/04/24 04:34 Hgb 13.40 g/dL (11.27-16.99) 10/04/24 04:34 Hct 41.2 % (36-47) 10/04/24 04:34 MCV 93.0 fl (85-98) 10/04/24 04:34 MCH 30.2 pg (27-33) 10/04/24 04:34 MCHC 32.5 g/dL (30-55) 10/04/24 04:34 RDW 13.1 % (12.1-15.1) 10/04/24 04:34 Plt Count 223 10^3/cmm (157-399) 10/04/24 04:34 MPV 10.1 fL (7.4-10.4) 10/04/24 04:34 Neut % (Auto) 80.3 % 10/04/24 04:34 Lymph % (Auto) 10.4 % 10/04/24 04:34 Benson % (Auto) 7.3 % 10/04/24 04:34 Eos % (Auto) 1.0 % 10/04/24 04:34 Baso % (Auto) 0.5 % 10/04/24 04:34 Neut # (Auto) 12.46 10^3/uL (1.8-7.7) H 10/04/24 04:34 Lymph # (Auto) 1.6 10^3/uL (0.8-4.8) 10/04/24 04:34 Benson # (Auto) 1.1 10^3/uL (0.2-0.9) H 10/04/24 04:34 Eos # (Auto) 0.2 10^3/uL (0.0-0.8) 10/04/24 04:34 Baso # (Auto) 0.1 10^3/uL (0.0-0.1) 10/04/24 04:34 Nucleated RBC % (auto) 0 % 10/04/24 04:34 Nucleated RBCs # 0.0 /100WBC 10/04/24 04:34 Sodium 140 mmol/L (136-145) 10/04/24 04:34 Potassium 4.2 mmol/L (3.5-5.1) 10/04/24 04:34 Chloride 102 mmol/L (98-107) 10/04/24 04:34 Carbon Dioxide 25 mmol/L (22-29) 10/04/24 04:34 Anion Gap 17.2 (5-19) 10/04/24 04:34 BUN 21 mg/dL (8-23) 10/04/24 04:34 Creatinine 0.7 mg/dL (0.5-0.9) 10/04/24 04:34 GFR Calculation Not Reportable 10/04/24 04:34 Glucose 132 mg/dL (65-115) H 10/04/24 04:34 Calculated Osmolality 295 mOsm/kg (285-295) 10/04/24 04:34 Calcium 10.0 mg/dL (8.5-10.5) 10/04/24 04:34 Total Bilirubin 0.6 mg/dL (0.15-1.2) 10/04/24 04:34 AST 15 U/L (0-32) 10/04/24 04:34 ALT 13 U/L (0-33) 10/04/24 04:34 Alkaline Phosphatase 94 U/L (35-105) 10/04/24 04:34 Troponin T Baseline < 6 ng/L (0-10) 10/04/24 04:34 Troponin T 120 Minute 6.00 ng/L (0-10) 10/04/24 06:28 Delta Troponin T 0.14261 ABS# (0-10) 10/04/24 06:28 Total Protein 7.3 g/dL (6.6-8.7) 10/04/24 04:34 Albumin 4.6 g/dL (3.5-5.2) 10/04/24 04:34 Globulin 2.7 g/dL (1.3-4.6) 10/04/24 04:34 All radiology interpretation(s) finalized by discharge EKG Data EKG 1: Interpretation: Time?433?sinus rhythm, rate of 93, no ST segment elevation or depression, no T wave inversions, intervals within normal limits. QTc = 399 Discharge Plan Discharge Patient Disposition: Home Clinical Impression: Pleuritic chest pain Condition: Stable Prescriptions: New ketorolac 10 mg tablet 10 mg PO Q8H 4 Days Qty: 20 0RF No Action mecobalamin (vitamin B12) 1,000 mcg tablet,chewable 2,000 mcg PO QAM aspirin 81 mg Tablet,Delayed Release (Dr/Ec) 81 mg PO QAM ascorbic acid (vitamin C) [Vitamin C] 500 mg Tablet 250 mg PO QPM bupropion HCl 100 mg tablet 150 mg PO DAILY Discharge Orders: Discharge ED (Routine); Ordered 10/04/24 Ordered By: Howie Santiago Referrals: Karina Swanson FNP [Primary Care Provider] - Discharge Diet: Usual diet Discharge Activity: Resume usual activity Patient Instructions: Pleurisy (ED) Activity Restrictions/Additional Instructions: Thank you for choosing [facility] for your healthcare needs today. It is very important that you follow up as instructed or that you return to the Emergency Department should you have concerns or if your condition changes or worsens in any way. You were seen in the emergency room with complaints of chest pain. In reviewing your history you have had 2 previous angiograms which she reported were -1 within the last 2 to 3 years. Your cardiac enzymes and EKGs today did not show any acute changes. Chest x-ray did not show any pneumonia. Based on your description of symptoms and exam this appears to be musculoskeletal in nature discharged home with ketorolac to use as needed follow-up with your primary care doctor or return to the emergency room if you have changes or new symptoms Print Language: Danish Coding Level of Care Code ED Laboratory Animal Care Veterinarian for Chg Fwd Documented by User: Howie Santiago DO 10/04/24 15:49 HPI - Chest Pain General: Chief Complaint: Chest Pain Stated Complaint: Chest Pain Time Seen by Provider: 10/04/24 04:41 Related Data Home Medications ?Medication ?Instructions ?Recorded ?Confirmed mecobalamin (vitamin B12) 1,000 2,000 mcg PO QAM 05/08/20 10/04/24 mcg chewable tablet aspirin 81 mg tablet,delayed 81 mg PO QAM 01/08/22 10/04/24 release ascorbic acid (vitamin C) 500 mg 250 mg PO QPM 07/16/24 10/04/24 tablet (Vitamin C) bupropion HCl 100 mg tablet 150 mg PO DAILY 10/04/24 10/04/24 Previous Rx's ?Medication ?Instructions ?Recorded ketorolac 10 mg tablet 10 mg PO Q8H 4 days #20 tabs 10/04/24 Allergies Allergy/AdvReac Type Severity Reaction Status Date / Time acetaminophen (From Allergy Unknown Verified 07/16/24 12:58 Darvocet-N) guaifenesin (From Mucinex D) Allergy hives Verified 07/16/24 12:58 meperidine (From Demerol) Allergy Unknown Verified 07/16/24 12:58 morphine Allergy code blue Verified 07/16/24 12:58 oxycodone (From Percocet) Allergy Unknown Verified 07/16/24 12:58 propoxyphene (From Allergy Unknown Verified 07/16/24 12:58 Darvocet-N) pseudoephedrine (From Allergy hives Verified 07/16/24 12:58 Mucinex D) metoprolol AdvReac Severe fatigue Verified 07/16/24 12:58 narcotics Allergy Unknown Uncoded 02/16/24 09:33 PFSH ED PFSH: Medical History Depression Nocturnal hypoxia Family History Sister Cancer breast, leukemia Father CAD (coronary artery disease) Diabetes Mother Diabetes Congestive heart failure (CHF) Social History Smoking and tobacco/nicotine status: never used tobacco/nicotine Second hand smoke exposure: Yes Alcohol intake: never Substance/Drug Use: never Caregiver/support person: No Lives independently: Yes Household members: none Marital status: Single service: No Current occupational status: retired and disabled Do you think of yourself as: Straight/Heterosexual Current gender identity: Female Course Vital Signs: Vital signs: Vital Signs Temperature 97.4 F L 10/04/24 04:35 Pulse Rate 96 10/04/24 08:53 Respiratory Rate 16 10/04/24 08:53 Blood Pressure 120/64 10/04/24 08:53 Pulse Oximetry 99 10/04/24 08:53 Oxygen Delivery Me thod Room Air 10/04/24 04:38 MDM - Chest Pain Medical Decision Making In summary, patient is a generally well-appearing 73-year-old female from home seen for pleuritic chest pain which is better with Toradol. Vital signs are stable. White blood cell count is somewhat elevated but x-ray does not show evidence of pneumonia. She may be suffering from a viral process but has no fever. She has no respiratory distress. Initial troponin is negative and EKG is reassuring. We discussed that if her second troponin is negative she will be discharged home with a prescription for oral Toradol which has not helped her pain significantly. Pertinent details of case were shared with the oncoming emergency physician who will facilitate ultimate disposition once troponin has resulted. Care assumed at change of shift patient continues to have pleuritic like chest pain worsened with deep inspiration not so much with palpation. Will discharge patient home with ketorolac as needed reviewed findings with patient cardiac enzymes and EKG did not show any changes no sign of acute coronary syndrome. She is not hypoxic or particular tachycardic. Her pain is resolved at rest. I do not believe she has a PE as no evidence of pneumothorax or pneumonia. Medical Records I reviewed the patient's medical records. Lab Data I reviewed the patient's lab results. 10/04/24 04:34 10/04/24 04:34 Radiology Impressions Chest X-Ray 10/04/24 04:49 IMPRESSION: No acute findings. Laboratory Results WBC 15.52 10^3/uL (3.29-11.43) H 10/04/24 04:34 RBC 4.43 10^6/uL (3.85-5.65) 10/04/24 04:34 Hgb 13.40 g/dL (11.27-16.99) 10/04/24 04:34 Hct 41.2 % (36-47) 10/04/24 04:34 MCV 93.0 fl (85-98) 10/04/24 04:34 MCH 30.2 pg (27-33) 10/04/24 04:34 MCHC 32.5 g/dL (30-55) 10/04/24 04:34 RDW 13.1 % (12.1-15.1) 10/04/24 04:34 Plt Count 223 10^3/cmm (157-399) 10/04/24 04:34 MPV 10.1 fL (7.4-10.4) 10/04/24 04:34 Neut % (Auto) 80.3 % 10/04/24 04:34 Lymph % (Auto) 10.4 % 10/04/24 04:34 Benson % (Auto) 7.3 % 10/04/24 04:34 Eos % (Auto) 1.0 % 10/04/24 04:34 Baso % (Auto) 0.5 % 10/04/24 04:34 Neut # (Auto) 12.46 10^3/uL (1.8-7.7) H 10/04/24 04:34 Lymph # (Auto) 1.6 10^3/uL (0.8-4.8) 10/04/24 04:34 Benson # (Auto) 1.1 10^3/uL (0.2-0.9) H 10/04/24 04:34 Eos # (Auto) 0.2 10^3/uL (0.0-0.8) 10/04/24 04:34 Baso # (Auto) 0.1 10^3/uL (0.0-0.1) 10/04/24 04:34 Nucleated RBC % (auto) 0 % 10/04/24 04:34 Nucleated RBCs # 0.0 /100WBC 10/04/24 04:34 Sodium 140 mmol/L (136-145) 10/04/24 04:34 Potassium 4.2 mmol/L (3.5-5.1) 10/04/24 04:34 Chloride 102 mmol/L (98-107) 10/04/24 04:34 Carbon Dioxide 25 mmol/L (22-29) 10/04/24 04:34 Anion Gap 17.2 (5-19) 10/04/24 04:34 BUN 21 mg/dL (8-23) 10/04/24 04:34 Creatinine 0.7 mg/dL (0.5-0.9) 10/04/24 04:34 GFR Calculation Not Reportable 10/04/24 04:34 Glucose 132 mg/dL (65-115) H 10/04/24 04:34 Calculated Osmolality 295 mOsm/kg (285-295) 10/04/24 04:34 Calcium 10.0 mg/dL (8.5-10.5) 10/04/24 04:34 Total Bilirubin 0.6 mg/dL (0.15-1.2) 10/04/24 04:34 AST 15 U/L (0-32) 10/04/24 04:34 ALT 13 U/L (0-33) 10/04/24 04:34 Alkaline Phosphatase 94 U/L (35-105) 10/04/24 04:34 Troponin T Baseline < 6 ng/L (0-10) 10/04/24 04:34 Troponin T 120 Minute 6.00 ng/L (0-10) 10/04/24 06:28 Delta Troponin T 0.97912 ABS# (0-10) 10/04/24 06:28 Total Protein 7.3 g/dL (6.6-8.7) 10/04/24 04:34 Albumin 4.6 g/dL (3.5-5.2) 10/04/24 04:34 Globulin 2.7 g/dL (1.3-4.6) 10/04/24 04:34 Discharge Plan Discharge Patient Disposition: Home Clinical Impression: Pleuritic chest pain Condition: Stable Prescriptions: New ketorolac 10 mg tablet 10 mg PO Q8H 4 Days Qty: 20 0RF No Action mecobalamin (vitamin B12) 1,000 mcg tablet,chewable 2,000 mcg PO QAM aspirin 81 mg Tablet,Delayed Release (Dr/Ec) 81 mg PO QAM ascorbic acid (vitamin C) [Vitamin C] 500 mg Tablet 250 mg PO QPM bupropion HCl 100 mg tablet 150 mg PO DAILY Discharge Orders: Discharge ED (Routine); Ordered 10/04/24 Ordered By: Howie Santiago Referrals: Karina Swanson, [employer] [Primary Care Provider] - Discharge Diet: Usual diet Discharge Activity: Resume usual activity Patient Instructions: Pleurisy (ED) Activity Restrictions/Additional Instructions: Thank you for choosing [facility] for your healthcare needs today. It is very important that you follow up as instructed or that you return to the Emergency Department should you have concerns or if your condition changes or worsens in any way. You were seen in the emergency room with complaints of chest pain. In reviewing your history you have had 2 previous angiograms which she reported were -1 within the last 2 to 3 years. Your cardiac enzymes and EKGs today did not show any acute changes. Chest x-ray did not show any pneumonia. Based on your description of symptoms and exam this appears to be musculoskeletal in nature discharged home with ketorolac to use as needed follow-up with your primary care doctor or return to the emergency room if you have changes or new symptoms Print Language: Danish Coding Level of Care Code ED Laboratory Animal Care Veterinarian for Maame Macario
[2024-10-04] MEDS: ketorolac 30 mg/mL INJ 15 MG IVP (04:53)
[2024-10-04 04:54] LABS: Basophils # 0.1 10^3/uL (0.0-0.1); Basophils % 0.5 %; Eosinophils # 0.2 10^3/uL (0.0-0.8); Hematocrit 41.2 % (36-47); Lymphocytes # 1.6 10^3/uL (0.8-4.8); Lymphocytes % 10.4 %; Mean Corpuscular HGB Conc 32.5 g/dL (30-55); Mean Corpuscular Hemoglobin 30.2 pg (27-33); Mean Platelet Volume 10.1 fL (7.4-10.4); Monocytes # 1.1 10^3/uL (0.2-0.9); Monocytes % 7.3 %; Neutrophils # 12.46 10^3/uL (1.8-7.7); Neutrophils % 80.3 %; Nucleated Red Blood Cells % 0 %; Platelet Count 223 10^3/cmm (157-399); Red Blood Count 4.43 10^6/uL (3.85-5.65); Red Cell Distribution Width 13.1 % (12.1-15.1); White Blood Count 15.52 10^3/uL (3.29-11.43)
[2024-10-04 05:08] LABS: Troponin(5th) Baseline < 6 ng/L (0-10)
[2024-10-04 05:18] LABS: Alanine Aminotransferase 13 U/L (0-33); Albumin Level 4.6 g/dL (3.5-5.2); Alkaline Phosphatase 94 U/L (35-105); Anion Gap 17.2 (5-19); Aspartate Amino Transferase 15 U/L (0-32); Blood Urea Nitrogen 21 mg/dL (8-23); Carbon Dioxide 25 mmol/L (22-29); Chloride 102 mmol/L (98-107); Creatinine Clr Calc Pharmacy 70.8488; Globulin 2.7 g/dL (1.3-4.6); Glucose 132 mg/dL (65-115); Osmolality Calculated 295 mOsm/kg (285-295); Potassium 4.2 mmol/L (3.5-5.1); Sodium 140 mmol/L (136-145); Total Bilirubin 0.6 mg/dL (0.15-1.2); Total Protein 7.3 g/dL (6.6-8.7)
[2024-10-04 06:48] LABS: Troponin 5 2HR Delta 0.00001 ABS# (0-10)
== END 2024-10-04 08:54 | disposition home or self-care (01) ==
PROVIDERS: Student in an Organized Health Care Education/Training Program; Emergency Provider Family Medicine; PCP Nurse Practitioner
DX: R07.81 Pleurodynia (principal); Z79.82 Long term (current) use of aspirin
CPT/HCPCS: 36415; 71045; 80053; 84484; 85025; 93005; 96374; 99285; J1885

== ENCOUNTER → 2024-11-08 10:33 | Outpatient (BNVA) | payer MEDICARE, MEDICAID, SELFPAY | PROVIDERS: PCP Nurse Practitioner; Visit Provider Surgery | DX: K21.9 Gastro-esophageal reflux disease without esophagitis (principal) | CPT/HCPCS: 99203 ==

== ENCOUNTER 2024-11-22 05:55 | Day surgery (SDC) | payer MEDICARE, MEDICAID, SELFPAY ==
[2024-11-22 06:13] VITALS: BP 129/67; PULSE 78; RESP 18; TEMP 36.3; O2SAT 95; BMI 31.8
[2024-11-22] MEDS: sodium chloride 0.9% 500 ML 15 ML IV (06:21)
--- NOTE | 2024-11-22 06:43 | ANES.PREANE2 ---
Pre-Anesthetic Assessment Height/Weight: Height 1.65 m Weight 86.636 kg Temp Pulse Resp BP Pulse Ox O2 Del Method 97.4 F L 78 18 129/67 95 Room Air 11/22/24 06:13 11/22/24 06:13 11/22/24 06:13 11/22/24 06:13 11/22/24 06:13 11/22/24 06:13 Preop Diagnosis: dysphagia Operation Date: 11/22/24 07:00 Proposed Procedures p EGD 54383 K21.9(Not Applicable) - Beto Hunter MD Was Beta Pamela taken within 24 hours: N/A Was Clonidine taken within 24 hours: N/A Last intake: Intake Last Liquid Date 11/21/24 Last Liquid Time 16:00 Last Solid Date 11/21/24 Last Solid Time 16:00 Social No alcohol and No tobacco Exam alert and oriented x 3 Airway Submandibular: within normal limits Cervical ROM: within normal limits Mallampati: Class II Dentition: full Comments: Comments: bridges intact History/ROS No significant history except as noted Pulmonary Sleep Apnea (Cpap started 2 weeks ago) 2L into Cpap at night CV/HEM Atrial Fibrillation, Stable Angina and Murmur remote history afib once- had stress cardiomyopathy dx 2 years ago None reported Hepatic None reported GI Gastroesophageal Reflux Disease Metabolic None reported Musc/skel Osteoarthritis/DJD Neuropsych Anxiety and Neuropathy Anesthetic Plan ASA status: 3 Anesthesia: MAC Medications/Allergies Home Medications ?Medication ?Instructions ?Recorded ?Confirmed ?Last Taken ?Type bupropion HCl 100 mg tablet 100 mg PO BID 10/04/24 11/20/24 11/22/24 History pantoprazole 40 mg tablet,delayed 40 mg PO BID 11/08/24 11/20/24 11/22/24 History release sucralfate 100 mg/mL oral 10 ml PO BID 2 weeks #280 mL 11/08/24 11/20/24 11/22/24 Rx suspension Vitamin D3 1 tab PO DAILY 11/20/24 11/20/24 11/22/24 History alprazolam 0.25 mg tablet 0.25 mg PO BEDTIME PRN Sleep 11/20/24 11/20/24 11/22/24 History cyanocobalamin (vitamin B-12) 2,500 mcg sublingual DAILY 11/20/24 11/20/24 11/22/24 History 2,500 mcg sublingual tablet (Vitamin B-12) Allergies Allergy/AdvReac Type Severity Reaction Status Date / Time guaifenesin (From Mucinex D) Allergy hives Verified 11/20/24 11:46 meperidine (From Demerol) Allergy Unknown Verified 11/20/24 11:46 morphine Allergy code blue Verified 11/20/24 11:46 oxycodone (From Percocet) Allergy Unknown Verified 11/20/24 11:46 propoxyphene (From Allergy Unknown Verified 11/20/24 11:46 Darvocet-N) pseudoephedrine (From Allergy hives Verified 11/20/24 11:46 Mucinex D) metoprolol AdvReac Severe fatigue Verified 11/20/24 11:46 narcotics Allergy Unknown Uncoded 11/20/24 11:46 Current Medications Generic Name Dose Route Start Last Admin Trade Name Freq PRN Reason Stop Dose Admin Sodium Chloride 500 mls @ 15 mls/hr 11/22/24 06:15 11/22/24 06:21 Sodium Chloride 0.9% IV 15 mls/hr .Q24H NASREEN Administration PFSH Anesthesia Medical History Depression Nocturnal hypoxia Family History Sister Cancer breast, leukemia Father CAD (coronary artery disease) Diabetes Mother Diabetes Congestive heart failure (CHF) Social History Smoking and tobacco/nicotine status: never used tobacco/nicotine Second hand smoke exposure: Yes Alcohol intake: never Substance/Drug Use: never Caregiver/support person: No Lives independently: Yes Household members: none Marital status: Single service: No Current occupational status: retired and disabled Do you think of yourself as: Straight/Heterosexual Current gender identity: Female Data Anesthesia Cardiac Studies: Echocardiogram 06/02/22 Cardiac Event Monitor 01/16/22
--- NOTE | 2024-11-22 06:45 | P.HPUD_ITS ---
Surgery/Procedure H&P Update DATE OF PROCEDURE: November 22, 2024 DATE H&P PERFORMED: 11/08/24 H&P UPDATE INFORMATION: I have reviewed H&P completed within last 30 days, I have examined patient prior to procedure, No changes to prior documentation, H&P is in [facility] EMR on date indicated and Risks and benefits of the procedure reviewed PLANNED PROCEDURE: Operation Date: 11/22/24 07:00 Proposed Procedures p EGD 12589 K21.9(Not Applicable) - Beto Hunter MD
[2024-11-22 07:16] VITALS: BP 136/64; PULSE 105; RESP 18; TEMP 36.3; O2SAT 98
[2024-11-22 07:27] VITALS: BP 110/75; PULSE 80; RESP 18; TEMP 36.2; O2SAT 98
--- NOTE | 2024-11-22 07:48 | ANE.PACU2 ---
Inpatient post-anesthesia follow up: Airway intact: Yes Vital signs: Temperature 97.2 F Pulse Rate 80 Respiratory Rate 18 Blood Pressure 110/75 Pulse Oximetry 98 Oxygen Delivery Me thod Room Air Oxygen Flow Rate Fraction of Inspir ed Oxygen Hydration adequate: Yes Nausea and vomiting: No Pain level: 1 Mental status: Baseline
== END 2024-11-22 07:52 | disposition home or self-care (01) ==
PROVIDERS: PCP Nurse Practitioner; Visit Provider Surgery
PROC: 0DJ08ZZ Inspection of Upper Intestinal Tract, Via Natural or Artificial Opening Endoscopic (ICD-10-PCS; principal; 2024-11-22 07:00)
DX: K21.00 Gastro-esophageal reflux disease with esophagitis, without bleeding (principal); K29.50 Unspecified chronic gastritis without bleeding; Z86.79 Personal history of other diseases of the circulatory system; G47.30 Sleep apnea, unspecified; Z79.899 Other long term (current) drug therapy; Z88.5 Allergy status to narcotic agent; Z88.8 Allergy status to other drugs, medicaments and biological substances
CPT/HCPCS: 43239; 88305; 88342; J2704; J7040; J9999

== ENCOUNTER → 2025-03-29 08:21 | Outpatient (BNVA) | payer OTHER, SELFPAY | PROVIDERS: PCP Nurse Practitioner; Visit Provider Psychiatry & Neurology Psychiatry | DX: F43.10 Post-traumatic stress disorder, unspecified (principal); F41.1 Generalized anxiety disorder | CPT/HCPCS: 80061; 83036 ==